=== PATIENT | male | born 1945 | race Caucasian/White ===

== ENCOUNTER 2019-04-30 15:23 | Inpatient (IN) | payer MEDICARE, MEDICAID ==
[~2019-04-30] VITALS: Ht 170.2 cm; Wt 51.7 kg
[2019-04-30 15:30] VITALS: BP 104/66
--- NOTE | 2019-04-30 15:30 | NUR ---
ED Nurse Note: Patient LANE from [facility] due to being more agitated than usual since yesterday. Pt's baseline is AAO x2. Pt is A&O x1 (person) in the ER, V/S noted. Pt is irritable, repeats words and is combative. Pt is connected to the cardiac monitor technician, blood and urine sent down to the lab.
--- NOTE | 2019-04-30 16:00 | Emergency Room Report ---
History of Present Illness General Chief Complaint: Altered Level of Consciousness Source: Patient, Medical Record, EMS Present Illness HPI Disclaimer: Please note that this report is being documented using DRAGON technology. This can lead to erroneous entry secondary to incorrect interpretation by the dictating instrument. HPI: 73-year-old male with a documented history of paranoid schizophrenia, dementia, prostate issues, respiratory disease presents for evaluation of altered mental status. He presents from his nursing facility for increased aggression, agitation and disorientation. Reportedly, he is AO x2 at baseline however today is only oriented to self. He was combative with staff. He arrives shivering. Difficult to obtain any history from the patient and his he is disoriented. Does not know where he is currently or how he arrived. He is complaining of feeling cold but denies fevers. He does report a cough. He reports diffuse myalgias. Denies any recent fall or injury. None was reported by EMS. No prior visits to our facility. PMH: Schizophrenia, dementia, respiratory disease, COPD, prostate issues PSH: Unable to obtain from patient Allergies: Azithromycin listed in medical chart Social Hx: Unable to obtain from patient Allergies: Coded Allergies: AZITHROMYCIN (Verified Allergy, Unknown, 04/30/19) Nursing Documentation-PMH Past Medical History: No History, Except For Hx Hypertension: Yes Hx COPD: Yes Hx Diabetes: Yes Review of Systems All Other Systems: limited - Due to clinical condition Physical Exam Vital Signs Date Time Temp Pulse Resp B/P (MAP) Pulse Ox O2 Delivery O2 Flow Rate FiO2 04/30/19 15:30 97.3 105 20 104/66 (79) 99 Room Air General: Awake and alert, tremulous, confused and anxious appearing male HEENT: NC/AT. EOMI. PERRLA. Edentulous. Dry mucous membranes. Cardiovascular: Slightly tachycardic. S1 and S2 normal. No murmur appreciated Resp: Normal work of breathing. No cough, wheezing or crackles appreciated Abdomen: Abdomen is soft, nondistended. Nontender Skin: Intact. No abrasions, laceration or rash over the exposed skin MSK: Decreased muscle bulk diffusely but moving all extremities. No obvious deformity. Neuro: Awake, disoriented. Oriented to self only. Moving all extremities. Compliant with simple commands Procedures Critical Care Time Critical Care Time Total critical care time: Approximately 31 minutes Due to a high probability of clinically significant, life threatening deterioration, the patient required the highest level of preparedness to intervene emergently and I personally spent this critical care time directly and personally managing the patient. This critical care time included obtaining a history, examining the patient, pulse oximetry, ordering and reviewing studies , ordering treatments, evaluating response to treatment and updating management plan as needed, frequent reassessment and discussion with other providers as well as arranging for ultimate disposition. This critical to care time was performed to assess and manage the high probability of life-threatening deterioration that could result in multiorgan failure. This critical care time is separate from the separately billable procedures and treating other patients. Medical Decision Making Diagnostic Impression: Primary Impression: Altered level of consciousness Additional Impressions: Anemia Diarrhea Thrombocytosis ER Course 73-year-old male presents from his assisted living facility for evaluation of changes in mental status. He is reportedly more confused and aggressive as compared to his baseline. Differential is broad and includes but not limited to viral syndrome, dehydration, hepatic impairment, renal impairment, UTI, pneumonia, ACS, tox. Start broad metabolic and toxicologic work-up. Will provide IV fluids. Laboratory Tests Test 04/30/19 16:08 White Blood Count 9.9 K/UL (4.8-10.8) Red Blood Count 3.07 M/UL (4.70-6.10) L Hemoglobin 7.5 G/DL (14.2-18.0) L Hematocrit 25.8 % (42.0-52.0) L Mean Corpuscular Volume 84 FL (80-99) Mean Corpuscular Hemoglobin 24.5 PG (27.0-31.0) L Mean Corpuscular Hemoglobin Concent 29.2 G/DL (32.0-36.0) L Red Cell Distribution Width 16.6 % (11.6-14.8) H Platelet Count 609 K/UL (150-450) H Mean Platelet Volume 6.9 FL (6.5-10.1) Neutrophils (%) (Auto) % (45.0-75.0) Lymphocytes (%) (Auto) % (20.0-45.0) Monocytes (%) (Auto) % (1.0-10.0) Eosinophils (%) (Auto) % (0.0-3.0) Basophils (%) (Auto) % (0.0-2.0) Neutrophils % (Manual) Pending Lymphocytes % (Manual) Pending Platelet Estimate Pending Platelet Morphology Pending Urine Color Yellow Urine Appearance Clear Urine pH 5.0 (4.5-8.0) Urine Specific [place] 1.010 (1.005-1.035) Urine Protein 2+ (NEGATIVE) H Urine Glucose (UA) Negative (NEGATIVE) Urine Ketones Negative (NEGATIVE) Urine Blood Negative (NEGATIVE) Urine Nitrite Negative (NEGATIVE) Urine Bilirubin Negative (NEGATIVE) Urine Urobilinogen Normal MG/DL (0.0-1.0) Urine Leukocyte Esterase Negative (NEGATIVE) Urine RBC 0-2 /HPF (0 - 0) H Urine WBC 0-2 /HPF (0 - 0) Urine Squamous Epithelial Cells None /LPF (NONE/OCC) Urine Bacteria Occasional /HPF (NONE) Sodium Level 139 MMOL/L (136-145) Potassium Level 3.3 MMOL/L (3.5-5.1) L Chloride Level 101 MMOL/L (98-107) Carbon Dioxide Level 26 MMOL/L (21-32) Anion Gap 12 mmol/L (5-15) Blood Urea Nitrogen 7 mg/dL (7-18) Creatinine 0.9 MG/DL (0.55-1.30) Estimate Glomerular Filtration Rate > 60 mL/min (>60) Glucose Level 142 MG/DL (74-106) H Calcium Level 8.9 MG/DL (8.5-10.1) Total Bilirubin 0.2 MG/DL (0.2-1.0) Aspartate Amino Transferase (AST) 22 U/L (15-37) Alanine Aminotransferase (ALT) 25 U/L (12-78) Alkaline Phosphatase 90 U/L (46-116) Total Creatine Kinase 86 U/L (26-140) Troponin I 0.000 ng/mL (0.000-0.056) Total Protein 8.6 G/DL (6.4-8.2) H Albumin 4.2 G/DL (3.4-5.0) Globulin 4.4 g/dL Albumin/Globulin Ratio 1.0 (1.0-2.7) Salicylates Level 1.2 ug/mL (2.8-20) L Urine Opiates Screen Negative (NEGATIVE) Acetaminophen Level < 2 MCG/ML (10-30) L Urine Barbiturates Screen Negative (NEGATIVE) Phencyclidine (PCP) Screen Negative (NEGATIVE) Urine Amphetamines Screen Negative (NEGATIVE) Urine Benzodiazepines Screen Negative (NEGATIVE) Urine Cocaine Screen Negative (NEGATIVE) Urine Marijuana (THC) Screen Negative (NEGATIVE) Serum Alcohol < 3 mg/dL Microbiology Date/Time Source Procedure Growth Status 04/30/19 16:40 Nasal Nares - Final Complete 04/30/19 16:40 Nasal Nares - Final Complete EKG Diagnostic Results EKG Time: 16:17 Rate: tachycardiac Rhythm: NSR ST Segments: no acute changes Other Impression Sinus tachycardia, normal axis, normal intervals, no ST segment changes. Rhythm Strip Diag. Results Rhythm Strip Time: 16:17 EP Interpretation: yes Rate: 107 Rhythm: no PVC's, no ectopy Chest X-Ray Diagnostic Results Chest X-Ray Diagnostic Results : Chest X-Ray Ordered: Yes # of Views/Limited/Complete: 1 View Indication: Other - Altered mental status EP Interpretation: Yes Interpretation: other - Left hilar prominence. Streaky atelectasis. No obvious focal consolidation Impression: No acute disease Electronically Signed by: Electronically signed by Dr. Gab William Reevaluation Time: 17:32 Last Vital Signs Date Time Temp Pulse Resp B/P (MAP) Pulse Ox O2 Delivery O2 Flow Rate FiO2 04/30/19 15:30 97.3 105 20 104/66 (79) 99 Room Air Reevaluation Impression Patient needed a small dose of Ativan while obtaining blood work but otherwise has been calm and cooperative. No aggressive behavior displayed today in the emergency department. Patient found to be anemic with a hemoglobin of 7.5. No evidence of bleed. His paperwork shows blood work on April 18 with a hemoglobin of 8.1. I discussed with his PMD who is also stating that he has having voluminous foul-smelling diarrhea. Will put on C. difficile precautions , send stool culture and C. difficile toxin and transfuse the patient 2 units. He will be admitted for further work-up to his PMD Disposition: ELOPED Condition: Serious Gab William MD Apr 30, 2019 16:00
[2019-04-30] MEDS ORDERED: LORazepam Inj 2mg/ml 1ml ONE (16:19)
[2019-04-30] MEDS ORDERED: LORazepam Inj 2mg/ml 1ml IV ONE ×2 (16:30→20:45)
--- NOTE | 2019-04-30 16:35 | NUR ---
ED Nurse Note: Influenza A&B swab done.
[2019-04-30 16:41] LABS: CHLORIDE 101 MMOL/L (98-107); POTASSIUM 3.3 MMOL/L (3.5-5.1); SODIUM 139 MMOL/L (136-145)
[2019-04-30 16:47] LABS: ANION GAP 12 mmol/L (5-15); BLOOD UREA NITROGEN 7 mg/dL (7-18); CALCIUM 8.9 MG/DL (8.5-10.1); CARBON DIOXIDE 26 MMOL/L (21-32); CREATININE 0.9 MG/DL (0.55-1.30)
[2019-04-30 16:53] LABS: BILIRUBIN,TOTAL 0.2 MG/DL (0.2-1.0)
[2019-04-30 16:54] LABS: ALANINE AMINOTRANSFERASE 25 U/L (12-78); ALBUMIN 4.2 G/DL (3.4-5.0); ALKALINE PHOSPHATASE 90 U/L (46-116); CREATINE KINASE 86 U/L (26-140)
[2019-04-30 16:56] LABS: HEMATOCRIT 25.8 % (42.0-52.0); HEMOGLOBIN 7.5 G/DL (14.2-18.0); MEAN CORPUSCULAR VOLUME 84 FL (80-99); PLATELET COUNT 609 K/UL (150-450); RED BLOOD COUNT 3.07 M/UL (4.70-6.10); RED CELL DISTRIBUTION WIDTH 16.6 % (11.6-14.8); WHITE BLOOD COUNT 9.9 K/UL (4.8-10.8)
[2019-04-30 17:11] LABS: APPEARANCE,URINE CLEAR; COLOR,URINE YELLOW
[2019-04-30 17:12] LABS: ASPARTATE AMINO TRANSFERASE 22 U/L (15-37); BILIRUBIN, URINE NEGATIVE (NEGATIVE); GLUCOSE, URINE (UA) NEGATIVE (NEGATIVE); KETONES,URINE NEGATIVE (NEGATIVE); LEUKOCYTE ESTERASE ,URINE NEGATIVE (NEGATIVE); NITRITE,URINE NEGATIVE (NEGATIVE); PROTEIN,URINE 2+ (NEGATIVE); UROBILINOGEN,URINE NORMAL MG/DL (0.0-1.0)
[2019-04-30 17:30] VITALS: BP 115/70
--- NOTE | 2019-04-30 18:16 | Diagnostic Imaging Report ---
EXAM: XR Chest, 1 View CLINICAL HISTORY: COUGH TECHNIQUE: Frontal view of the chest. COMPARISON: None FINDINGS: Hardware: None. Lungs/pleura: Interstitial markings. No focal consolidation. No pleural effusion or pneumothorax. Heart/mediastinum: Normal. No cardiomegaly. Soft tissues: Unremarkable. Bones: No acute fracture. Degenerative changes of the spine. Upper abdomen: Gas-filled bowel. IMPRESSION: No focal consolidation identified. Interstitial markings may represent chronic lung changes versus infectious/inflammatory process.
--- NOTE | 2019-04-30 18:18 | NUR ---
ED Nurse Note: Patient was given a bed bath, unable to obtain stool sample, no stool production at this time. Pt is cooperative, follows command. V/S stable.
--- NOTE | 2019-04-30 18:20 | NUR ---
ED Nurse Note: Type and Screen blood sent down to the lab.
--- NOTE | 2019-04-30 19:22 | NUR ---
HAND-OFF: Report given to YAMEL Daly.
[2019-04-30 19:30] VITALS: BP 117/65
--- NOTE | 2019-04-30 19:30 | NUR ---
ED Nurse Note: Report received from YAMEL Arriaza. Pt is awake and alert at this time. Safety measures in place. No acute distress noted. VSS. Will continue to monitor.
--- NOTE | 2019-04-30 20:30 | NUR ---
ED Nurse Note: While taking pt pre blood transfusion VS, pt temperature was elevated at 101.2F. ERMD notified, will carry out order for tylenol. ERMD also notified of pt elevated HR in 120's.
[2019-04-30] MEDS ORDERED: Acetaminophen 650 MG SUPP RECTAL ONE (20:45)
[2019-04-30 21:00] VITALS: BP 94/54
[2019-04-30] MEDS ORDERED: Doxycycline Hyclate 100 MG in D5W 110 ML IVPB SCH (21:30)
[2019-04-30] MEDS ORDERED: cefTRIAXone 1 GM in NS 55 ML IVPB ONE (21:30)
--- NOTE | 2019-04-30 22:50 | NUR ---
ED Nurse Note: Upon assessment of pre blood transfusion vital signs, pt BP low at 80/47. ERMD aware, pt started on 1L ns bolus.
[2019-04-30 23:35] VITALS: BP 95/48
[2019-04-30 23:43] VITALS: BP 129/92
--- NOTE | 2019-04-30 23:45 | NUR ---
ED Nurse Note: Pt BP has gone up to 129/92 after NS bolus. Pt is in no acute distress at this time.
--- NOTE | 2019-04-30 23:57 | NUR ---
ED Nurse Note: Report given to YAEML He.
--- NOTE | 2019-05-01 | NUR ---
ED Nurse Note: Report given to YAMEL He.
[2019-05-01] MEDS ORDERED: IMODIUM A-1 MG/7.5 M PO (00:13)
[2019-05-01] MEDS ORDERED: ALBUTEROL2.5 MG/3 M INH (00:13)
[2019-05-01] MEDS ORDERED: SEROQUEL25 MG ORAL (00:13)
[2019-05-01] MEDS ORDERED: TYLENOL325 M1 PO (00:13)
[2019-05-01] MEDS ORDERED: SALAGEN7.5 MG PO (00:13)
[2019-05-01] MEDS ORDERED: MELATONIN3 MG ORAL (00:13)
[2019-05-01] MEDS ORDERED: FAMOTIDINE20 MG ORAL ×2 (00:13→01:09)
[2019-05-01] MEDS ORDERED: DIPHENHYDRAMINE25 M1 ORAL (00:13)
[2019-05-01] MEDS ORDERED: BISACODYL5 MG RECTAL (00:13)
[2019-05-01] MEDS ORDERED: FLOMAX0.4 MG ORAL (00:13)
[2019-05-01] MEDS ORDERED: SEROQUEL100 MG ORAL (00:13)
[2019-05-01] MEDS ORDERED: FLONASE ALLERG9.9 ML NS (00:13)
[2019-05-01] MEDS ORDERED: MIDODRINE HCL5 MG ORAL (00:13)
--- NOTE | 2019-05-01 00:15 | NUR ---
NURSE NOTES: received patient per yumiko accompanied by er staff with ongoing 2nd bag of prbc infusing well on the right ac. with another iv line on the left forearm, saline lock. patient is confused. incontinent. no open skin noted aside from the rashes all over the body.on room air. all belongings was at the bedside.per ed nurse that they collected stool for c diff. with 2 episodes of loose bowel movement. charge nurse made aware. kept clean and dry.oriented to room set- up. bed locked and in lowest position. call light and light button within easy reach.vital signs of 95/56mmhg, 98bpm, 97.8F, 94%. not in any form of respiratory distress. paged dr. mccann for admission orders, awaiting for call back.
--- NOTE | 2019-05-01 00:15 | NUR ---
ED Nurse Note: Pt stable to transfer to MS unit at this time per ERMD. Pt is in no acute distress. Pt IV on R and L arm are patent and intact. Vital signs are stable at this time. Pt taken to unit via RN. PRBCs are infusing at this time, endorsed plan to receiving RN. Pt belongings sent with pt.
--- NOTE | 2019-05-01 00:40 | NUR ---
blood transfusion completed. with vital signs of 87/54mmhg, 95 bpm, 97.9F, 95%, 20 cpm. patient is sleeping comfortably on bed. not in any form of respiratory distress. blood bag and tubing returned to the lab. paged for orders, awaiting for call back. charge nurse made aware. Addendum: 05/01/19 at 0403 by Jyotsna Giron RN NURSE NOTES:
[2019-05-01] MEDS ORDERED: BISACODYL5 MG ORAL (01:09)
[2019-05-01] MEDS ORDERED: LOPERAMIDE2 MG PO (01:09)
[2019-05-01] MEDS ORDERED: ACETAMINOPHEN120 MG PO (01:09)
[2019-05-01] MEDS ORDERED: PILOCARPINE HCL MC (01:09)
--- NOTE | 2019-05-01 03:00 | NUR ---
NURSE NOTES: Rox mccann, went through voicemail. awaiting for call back. charge nurse made aware.
[2019-05-01 04:00] VITALS: BP 98/52
--- NOTE | 2019-05-01 06:00 | NUR ---
NURSE NOTES: called dr. mccann phone went through [employer], left a message awaiting for call back. charge nurse made aware.
[2019-05-01] MEDS ORDERED: Albuterol ud Inhalation HHN PRN (07:30)
--- NOTE | 2019-05-01 07:30 | NUR ---
NURSE NOTES: RECEIVED PATIENT A/A/OX1, CONFUSED. ATTEMPTED TO GET OUT BED. PATIENT ABLE TO FOLLOW COMMANDS. COVERED WITH FECES, DIARRHEA LIKE. BED ALARM ENGAGED AND LOCKED. SIDERAILS ARE UPX3. CALL LIGHT IS WITHIN REACH. IV SITE IS PATENT AND INTACT. DENIES OF PAIN/DISCOMFORT NOTED. WILL CONT TO MONITOR.
--- NOTE | 2019-05-01 07:40 | NUR ---
NURSE NOTES: md aware regarding the potassium of 3.3, with a new order of kcl 40 meq x1. endorsed to incoming shift.
--- NOTE | 2019-05-01 07:43 | NUR ---
HAND-OFF: Report given to renny walker. endorsed that the pt is high risk for fall due to diagnosis of paranois schizophenia and altered mental status. he's confused. he gets on bed and frequently screams for help. advised to observe fall precautions by lowering down the bed, bed locked, call light within easy reach but unable to re-demonstrate and frewuent visits. pt is placed near the nurses station for safety. endorsed to aaron regarding the new orders.
[2019-05-01 08:00] VITALS: BP 101/56
[2019-05-01] MEDS ORDERED: LORazepam 1mg tab ORAL PRN (08:00)
[2019-05-01] MEDS: Bisacodyl EC 5mg tab ORAL SCH (09:00)
[2019-05-01] MEDS ORDERED: Vancomycin 1gm/D5W 275ml IVPB ONE ×2 (09:00)
[2019-05-01] MEDS: Tamsulosin 0.4mg cap ORAL SCH (09:24)
[2019-05-01 09:51] LABS: BASOPHILS % (AUTO) 1.4 % (0.0-2.0); EOSINOPHILS % (AUTO) 1.2 % (0.0-3.0); HEMATOCRIT 31.9 % (42.0-52.0); HEMOGLOBIN 10.3 G/DL (14.2-18.0); LYMPHOCYTES % (AUTO) 18.5 % (20.0-45.0); MEAN CORPUSCULAR VOLUME 81 FL (80-99); MONOCYTES % (AUTO) 8.2 % (1.0-10.0); NEUTROPHILS % (AUTO) 70.6 % (45.0-75.0); PLATELET COUNT 623 K/UL (150-450); RED BLOOD COUNT 3.92 M/UL (4.70-6.10); WHITE BLOOD COUNT 7.3 K/UL (4.8-10.8)
[2019-05-01 10:45] LABS: ANION GAP 9 mmol/L (5-15); BLOOD UREA NITROGEN 20 mg/dL (7-18); CALCIUM 8.2 MG/DL (8.5-10.1); CARBON DIOXIDE 24 MMOL/L (21-32); CHLORIDE 109 MMOL/L (98-107); CREATININE 0.9 MG/DL (0.55-1.30); POTASSIUM 4.4 MMOL/L (3.5-5.1); SODIUM 142 MMOL/L (136-145)
--- NOTE | 2019-05-01 11:00 | NUR ---
NURSE NOTES: Inform Dr. Garcia about generalized rash with no new order. Dr. Garcia said to follow protocol. Will inform wound care nurse.
--- NOTE | 2019-05-01 11:53 | NUR ---
NURSE NOTES: ADMINISTERED IMODIUM FOR DIARRHEAL EVENT. PATIENT IS NOT ABLE TO FOLLOW COMMANDS. CONSTANTLY GETTING UP OFF THE BED. BED ALARM ENGAGED. AND BED LOCK @ ALL TIMES. WILL CONT TO MONITOR.
[2019-05-01 12:00] VITALS: BP 113/63
[2019-05-01] MEDS: Piperacillin/Tazobactam 3.375 GM in NS 110 ML IVPB SCH ×2 (13:08→21:14)
[2019-05-01] MEDS ORDERED: NS 275ml ONE (13:47)
[2019-05-01] MEDS ORDERED: Tubing IV Secondary IV ONE (13:47)
[2019-05-01] MEDS: LORazepam Inj 2mg/ml 1ml IV PRN ×2 (13:57→21:14)
[2019-05-01 15:54] VITALS: BP 90/53
[2019-05-01 16:30] VITALS: BP 97/58
--- NOTE | 2019-05-01 18:53 | NUR ---
HAND-OFF: Report given to YAMEL Pierre.
--- NOTE | 2019-05-01 19:01 | NUR ---
NURSE NOTES: Received patient on bed, sleeping comfortably in bed with ongoing ivf of ns @100 ml/hr. with iv line on RAC and lfa. no noted grimacing or moaning noted. bed locked and in lowest position. bed alarm on. call light and light button within easy reach. will ensure safety and will continue plan of care.
[2019-05-01 20:00] VITALS: BP 102/60
[2019-05-01] MEDS: Vancomycin 750mg/NS 275ml IVPB SCH ×2 (20:13)
[2019-05-02] VITALS: BP 93/53
[2019-05-02] MEDS: LORazepam Inj 2mg/ml 1ml IV PRN ×4 (02:39→23:17)
[2019-05-02 04:00] VITALS: BP 99/60
[2019-05-02] MEDS: Piperacillin/Tazobactam 3.375 GM in NS 110 ML IVPB SCH ×3 (06:49→22:00)
--- NOTE | 2019-05-02 07:30 | NUR ---
HAND-OFF: Report given to YAMEL WOODARD. ENDORSED that the pt is high risk for fall. he tries to get up on bed. advised to observe fall precautions.
--- NOTE | 2019-05-02 07:54 | NUR ---
NURSE NOTES: Received patient in bed. IV line intact and patent. No SOB or acute distress. HOB elevated. Bed locked in lowest position, alarm on high sensitivity setting. Side rails up. Call light within reach. Will continue frequent rounding and plan of care.
[2019-05-02 08:00] VITALS: BP 151/98
--- NOTE | 2019-05-02 08:22 | General Progress Note ---
Assessment/Plan Assessment/Plan: anemia possible sepsis hypotension diarrhea tox met encephalopathy psych history PLAN psych eval gi follow up monitor diarrhea Cdfi negative care reviewed stabilize and dc to snf impression, plan, and exam edited and reviewed in detail care discussed with RN Subjective Allergies: Coded Allergies: AZITHROMYCIN (Verified Allergy, Unknown, 04/30/19) Subjective care noted gi noted and discussed remains altered Objective Last 24 Hour Vital Signs Date Time Temp Pulse Resp B/P (MAP) Pulse Ox O2 Delivery O2 Flow Rate FiO2 05/02/19 04:00 97.7 91 18 99/60 (73) 94 05/02/19 00:00 97.9 81 18 93/53 (66) 95 05/01/19 21:00 Room Air 05/01/19 20:00 97.9 99 18 102/60 (74) 96 05/01/19 16:30 97/58 (71) 05/01/19 15:54 98.1 89 18 90/53 (65) 93 05/01/19 12:00 98.1 86 20 113/63 (80) 97 05/01/19 09:00 Room Air Intake and Output 05/01/19 05/02/19 19:00 07:00 Intake Total 862.5 ml 576.663 ml Balance 862.5 ml 576.663 ml Intake Oral 480 ml IV Total 382.5 ml 576.663 ml # Voids 3 3 # Bowel Movements 6 4 Laboratory Tests 05/01/19 09:35: White Blood Count 7.3, Red Blood Count 3.92L, Hemoglobin 10.3#L, Hematocrit 31.9L, Mean Corpuscular Volume 81, Mean Corpuscular Hemoglobin 26.4L, Mean Corpuscular Hemoglobin Concent 32.4, Red Cell Distribution Width 15.0H, Platelet Count 623H, Mean Platelet Volume 5.9L, Neutrophils (%) (Auto) 70.6, Lymphocytes (%) (Auto) 18.5L, Monocytes (%) (Auto) 8.2, Eosinophils (%) (Auto) 1.2, Basophils (%) (Auto) 1.4, Sodium Level 142, Potassium Level 4.4, Chloride Level 109H, Carbon Dioxide Level 24, Anion Gap 9, Blood Urea Nitrogen 20H, Creatinine 0.9, Estimat Glomerular Filtration Rate > 60, Glucose Level 101, Calcium Level 8.2L Height (Feet): 5 Height (Inches): 9.00 Weight (Pounds): 116 Objective WDWN NAD clear breath sounds bilaterally without rhonchi or wheeze [id number] without MRG NABS nontender no HSM no CCE nonfocal reduced LOC Galen Garcia MD May 02, 2019 08:22
--- NOTE | 2019-05-02 10:00 | NUR ---
NURSE NOTES: IV line out. Reinserted to left hand using g24, infusing well. Bilateral soft wrist restraints ordered and placed. Pulses palpable, skin warm to touch.
[2019-05-02] MEDS: Tamsulosin 0.4mg cap ORAL SCH (10:13)
[2019-05-02] MEDS: Bisacodyl EC 5mg tab ORAL SCH (10:13)
--- NOTE | 2019-05-02 11:00 | NUR ---
NURSE NOTES: Seen by wound nurse, with orders for wound consult with Dr Horn and to notify Dr Garcia of generalized rashes. Wound nurse instructed RN to monitor rashes, if scales start to develop and if rashes multiply and appear in more areas, to notify wound nurse of occurrence. Dr Garcia to let wound nurse assess rashes.
[2019-05-02] MEDS: Vancomycin 750mg/NS 275ml IVPB SCH ×4 (11:02→21:47)
--- NOTE | 2019-05-02 11:07 | NUR ---
RD ASSESSMENT & RECOMMENDATIONS SEE CARE ACTIVITY FOR COMPLETE ASSESSMENT DAILY ESTIMATED NEEDS: Needs based on Underweight, wounds 52.7kg 30-35 kcals/kg 9645-6327 total kcals 1.25-1.5 g protein/kg 66-79 g total protein 25-30 mL/kg 6596-6773 total fluid mLs NUTRITION DIAGNOSIS: Increased kcal and pro needs r/t wound healing and underweight status as evidenced by pt w/ multiple open wounds, BMI underweight per guidelines, @73% of [place] Body Weight w/ generalized moderate to severe wasting. CURRENT DIET: Soft puree/ NTL PO DIET RECOMMENDATIONS: Regular diet/ texture per DISCOUNT CLERK ADDITIONAL RECOMMENDATIONS: 1) Rec to obtain a Calibrated bed scale wt 2) Wound care: (f/up w/ WC eval) RENETTA BID + VIT C 250mg BID + MVI w/ min qd 3) Add Snacks in b/w meals + Ensure BID 4) DISCOUNT CLERK eval for appropriate texture
[2019-05-02 12:00] VITALS: BP 108/68
--- NOTE | 2019-05-02 12:01 | NUR ---
Social Work This SW received a consult to assist with locating family. Patient is confused and cannot provide the information. This Sw spoke with RNOdalis at [facility] ([phone]) who explains patient was recently admitted to the correction last , from [facility], [facility] and has the following contacts for decision makin) Candie Ibrahim ([phone]) and 2) Igor Palacio ([phone]). SNF, along with this SW have made several attempts to locate family, where is not a voicemail or return call from this number. Odalis explains she will contact here, if family comes to visit patient (or tries to contact the correction). MD to consent to any treatment (full treatment at this time). Bioethics to follow, as needed.
--- NOTE | 2019-05-02 12:15 | History and Physical Report ---
DATE OF ADMISSION: 05/01/2019 REASON FOR ADMISSION: Severe anemia, fever. HISTORY OF PRESENT ILLNESS: This is a 81-year-old male with history of paranoid schizophrenia, dementia who was noted to be extremely agitated with foul-smelling diarrhea. The patient was noted to have some disorientation and abnormal laboratory data. The patient was transferred over for further evaluation and further intervention. The patient is a difficult historian. The patient now admitted for care and management. The patient is status post transfusion, but to some extent refusing care. Toxicology screen was noted and reviewed. PAST MEDICAL HISTORY: Notable for schizophrenia, dementia, COPD, as mentioned history of possible psychosis, benign prostatic hyperplasia. MEDICATIONS: Reviewed. ALLERGIES: Reviewed and reconciled. SOCIAL HISTORY: Lives in a snf. No clear smoking or drinking history. REVIEW OF SYSTEMS: Difficult to obtain due to the patient's mental state. PHYSICAL EXAMINATION: GENERAL: The patient is a well-developed male, somewhat agitated. VITAL SIGNS: Blood pressure 101/56, pulse 81, respirations 20, saturation 93%, temperature 98.4. HEENT: Negative. NECK: Supple. No adenopathy. LUNGS: Fairly clear and symmetric. No rhonchi or wheezes. CARDIAC: S1 and S2. Regular rate and rhythm without clear murmurs, rubs, or gallops. ABDOMEN: Overall soft, nontender, nondistended. EXTREMITIES: No cyanosis or clubbing. NEUROLOGIC: Appears to be grossly nonfocal. LABORATORY DATA: Chest x-ray with likely some chronic changes. Hemoglobin now improved from 7.5 to 10.3, platelets are elevated at 623. Chemistries noted, fairly negative overall. The albumin is 4.2. Urinalysis is overall negative. IMPRESSION: 1. Fever of unclear significance. 2. Mild hypertension, overall improved. 3. Anemia. Consider GI bleed. 4. Toxic metabolic encephalopathy. 5. History of schizophrenia. RECOMMENDATIONS: Supportive care. Resume psychiatric medications. Consider psychiatric evaluation. The patient was started empirically on antibiotics. Transfuse as needed. IV hydration if needed. GI evaluation to assist further and monitor ongoing management and recommendations. Stabilize and transfer the patient to the snf once improved. Galen Ishaaya, M.D. DR: QUINCY JOB#: [id number] CC: VIANNEY
--- NOTE | 2019-05-02 12:15 | Consultation ---
DATE OF CONSULTATION: 05/01/2019 CHIEF COMPLAINT: I was asked to see this patient by Dr. Galen Garcia for evaluation of anemia. HISTORY OF PRESENT ILLNESS: The patient is a 73-year-old white man with dementia and schizophrenia, who comes into the hospital due to altered mental status. The patient is confused and unable to provide any history, although he is awake and follows some basic commands. He is having increased psychiatric presentation with agitation and disorientation. During admission, he was combative. Blood test drawn showed also anemia. It is unclear if he has had anemia before. I was trying to call the patient's family but I am unable to go through with the number provided. PAST MEDICAL HISTORY: History of schizophrenia, dementia, respiratory disease, COPD, cognitive issues. ALLERGIES: Zithromax. FAMILY HISTORY: Unavailable. SOCIAL HISTORY: Unavailable. REVIEW OF SYSTEMS: Unobtainable. PHYSICAL EXAMINATION: VITAL SIGNS: Confused, debilitated white man, who is in bed. HEENT: Normocephalic, atraumatic. Sclerae anicteric. Oropharynx clear. Dentition was poor. NECK: Supple. CHEST: Clear to auscultation. CARDIOVASCULAR: Regular rate. ABDOMEN: Soft. EXTREMITIES: No edema. There were some decubitus ulcerations. LABORATORY DATA: Noted. ASSESSMENT: This patient presents with anemia of unclear etiology. His stools can be checked for occult blood to rule out gastrointestinal blood loss. The patient could potentially undergo endoscopy and colonoscopy to evaluate the GI tract. However, I will have to talk to the family regarding the indications and alternatives and difficulties performing the colonoscopy. I will ask the social media manager to locate the family to discuss the matter. In the meantime, I will monitor the patient's CBC, check iron panel and replace as necessary. RECOMMENDATIONS: Per above discussion and per orders written in the chart. Thank you for asking me to participate in the care of this patient. Claire Boles M.D. DR: Jada JOB#: [id number] CC: VIANNEY
--- NOTE | 2019-05-02 13:13 | NUR ---
P.T Note: P.T evaluation completed and tx initiated. Please refer to P.T evaluation for current functional status. Pt is alert, oriented to self but not to time, place and situation. Pt is confused however follows simple commands. Pt denied c/o pain but is generally weak. Pt required MOD A X 1 and constant verbal and manual redirections in performing Bed Mobilities and transfer activities. Gait is very unsteady and needed MOD A X 1 and FWW to ambulate distance of 20 ft. Overall fair endurance. Skilled P.T service is warranted to improve strength, balance and mobility independence and safe. Recommend DC to SNF with continue P.T intervention. Pt is cleared for OOB activities with FWW and nursing assistance.
--- NOTE | 2019-05-02 14:10 | Consultation ---
History of Present Illness General Date patient seen: May 02, 2019 Chief Complaint: Altered Level of Consciousness Present Illness HPI 73-year-old male with a documented history of paranoid schizophrenia, dementia, prostate issues, respiratory disease presents for evaluation of altered mental status. He presents from his nursing facility for increased aggression, agitation and disorientation. Reportedly, he is AO x2 at baseline however today is only oriented to self. He was combative with staff. He arrives shivering. Difficult to obtain any history from the patient and his he is disoriented. Does not know where he is currently or how he arrived. He is complaining of feeling cold but denies fevers. He does report a cough. He reports diffuse myalgias. Denies any recent fall or injury. None was reported by EMS. No prior visits to our facility. mild abd distention noted PMH: Schizophrenia, dementia, respiratory disease, COPD, prostate issues PSH: Unable to obtain from patient Allergies: Azithromycin listed in medical chart Social Hx: Unable to obtain from patient Allergies: Coded Allergies: AZITHROMYCIN (Verified Allergy, Unknown, 04/30/19) Medication History Scheduled Bisacodyl* (Dulcolax*), 10 MG ORAL DAILY, (Reported) Famotidine* (Pepcid 20mg tablet*), 40 MG ORAL DAILY, (Reported) Loperamide Hcl (Loperamide), 2 MG PO EVERY 4 HOURS, (Reported) Midodrine* (Proamatine*), 5 MG ORAL TWICE A DAY, (Reported) Pilocarpine Hcl (Pilocarpine Hcl), 5 GM MC TID, (Reported) Quetiapine Fumarate* (Seroquel*), 100 MG ORAL BEDTIME, (Reported) Quetiapine Fumarate* (Seroquel*), 50 MG ORAL TWICE A DAY, (Reported) Tamsulosin HCl (Flomax), 0.4 MG ORAL DAILY, (Reported) Scheduled PRN Acetaminophen* (Tylenol*), 650 MG PO Q6HR PRN for Mild Pain/Temp > 100.5, ( Reported) Albuterol Sulfate* (Albuterol Sulfate Hhn*), 2.5 ML INH Q4H PRN for Shortness of Breath, (Reported) Diphenhydramine Hcl* (Diphenhydramine Hcl*), 25 MG ORAL Q4HR PRN for Itching, ( Reported) Melatonin (Melatonin), 3 MG ORAL BEDTIME PRN for Insomnia, (Reported) Discontinued Medications Acetaminophen (Tylenol), 325 MG PO NEEDED, (Reported) Discontinued Reason: Medication dose changed Bisacodyl* (Dulcolax*), 10 MG RECTAL DAILY, (Reported) Discontinued Reason: MD discontinued med Famotidine* (Pepcid 20mg tablet*), 40 MG ORAL DAILY, (Reported) Discontinued Reason: Medication dose changed Fluticasone Propionate (Flonase Allergy Relief), 50 MCG NS ONCE, (Reported) Discontinued Reason: Therapy completed Loperamide Hcl (Imodium A-D), 2 MG PO EVERY 4 HOURS, (Reported) Discontinued Reason: Medication dose changed Pilocarpine Hcl (Salagen), 5 MG PO EVERY 8 HOURS, (Reported) Discontinued Reason: Medication dose changed Patient History Limited by: medical condition History Provided By: Medical Record, PMD Healthcare decision maker Resuscitation status Advanced Directive on File Past Medical/Surgical History Past Medical/Surgical History: (1) Abscess of left shoulder (2) Decubitus skin ulcer (3) Thrombocytosis (4) Diarrhea (5) Anemia (6) Altered level of consciousness Review of Systems ROS Narrative cannot obtain given patients medical condition Physical Exam General Appearance: no apparent distress, alert Lines, tubes and drains: peripheral HEENT: normocephalic, mucous membranes moist Neck: supple, normal inspection Respiratory/Chest: lungs clear, normal breath sounds, no respiratory distress, no accessory muscle use Cardiovascular/Chest: normal rate, regular rhythm Abdomen: soft, no organomegaly, no mass, distended - gaseous Extremities: normal range of motion, non-tender, normal inspection Skin Exam: warm/dry Neurologic: alert Last 24 Hour Vital Signs Date Time Temp Pulse Resp B/P (MAP) Pulse Ox O2 Delivery O2 Flow Rate FiO2 05/02/19 08:00 97.7 109 17 151/98 (115) 97 05/02/19 04:00 97.7 91 18 99/60 (73) 94 05/02/19 00:00 97.9 81 18 93/53 (66) 95 05/01/19 21:00 Room Air 05/01/19 20:00 97.9 99 18 102/60 (74) 96 05/01/19 16:30 97/58 (71) 05/01/19 15:54 98.1 89 18 90/53 (65 93 Intake and Output 05/01/19 05/02/19 19:00 07:00 Intake Total 862.5 ml 576.663 ml Balance 862.5 ml 576.663 ml Intake Oral 480 ml IV Total 382.5 ml 576.663 ml # Voids 3 3 # Bowel Movements 6 4 Height (Feet): 5 Height (Inches): 9.00 Weight (Pounds): 116 Medications Current Medications Medications (Trade) Dose Ordered Sig/Rachel Route PRN Reason Start Time Stop Time Status Last Admin Dose Admin Acetaminophen (Tylenol) 650 mg Q4H PRN ORAL Mild Pain/Temp > 100.5 05/01/19 08:00 05/31/19 07:59 Al Hydroxide/Mg Hydroxide (Mylanta) 30 ml Q4H PRN ORAL Abdominal cramps 05/01/19 07:15 05/31/19 07:14 Albuterol Sulfate (Proventil) 2.11645 mg Q4H PRN HHN Shortness of Breath 05/01/19 07:30 05/06/19 07:29 Bisacodyl (Dulcolax) 10 mg DAILY ORAL 05/01/19 09:00 05/31/19 08:59 05/02/19 10:13 Diphenhydramine HCl (Benadryl) 25 mg Q4H PRN ORAL Itching 05/01/19 07:30 05/31/19 07:29 Famotidine (Pepcid) 40 mg DAILY ORAL 05/01/19 09:00 05/31/19 08:59 05/02/19 10:13 Loperamide HCl (Imodium) 2 mg Q4H PRN ORAL Diarrhea 05/01/19 07:30 05/31/19 07:29 05/01/19 11:33 Lorazepam (Ativan 2mg/ml 1ml) 1 mg Q4H PRN IV For Anxiety 05/01/19 11:30 05/08/19 11:29 05/02/19 06:49 Midodrine (Pro-Amatine) 5 mg TWICE A DAY ORAL 05/01/19 09:00 05/31/19 08:59 05/01/19 17:07 Pantoprazole (Protonix) 40 mg DAILY ORAL 05/01/19 09:00 05/31/19 08:59 05/02/19 10:13 Piperacillin Sod/ Tazobactam Sod 3.375 gm/Sodium Chloride 110 ml @ 27.5 mls/hr Q8HR IVPB 05/01/19 12:00 05/08/19 11:59 05/02/19 06:49 Quetiapine Fumarate (SEROqueL) 50 mg DAILY ORAL 05/02/19 14:02 06/01/19 14:01 Risperidone (RisperDAL) 1 mg BID ORAL 05/02/19 14:00 06/01/19 13:59 Sodium Chloride 1,000 ml @ 100 mls/hr Q10H IV 05/01/19 08:00 05/31/19 07:59 05/02/19 00:00 Tamsulosin HCl (Flomax) 0.4 mg DAILY ORAL 05/01/19 09:00 05/31/19 08:59 05/02/19 10:13 Vancomycin HCl (Vanco rx to dose) 1 ea DAILY PRN MISC Per rx protocol 05/01/19 07:15 05/31/19 07:14 Vancomycin HCl 750 mg/Sodium Chloride 275 ml @ 183.333 mls/hr Q12HR IVPB 05/01/19 21:00 05/06/19 20:59 05/02/19 11:02 Assessment/Plan Problem List: (1) Malnutrition Assessment & Plan: DAILY ESTIMATED NEEDS: Needs based on Underweight, wounds 52.7kg 30-35 kcals/kg 1935-3097 total kcals 1.25-1.5 g protein/kg 66-79 g total protein 25-30 mL/kg 9560-7153 total fluid mLs NUTRITION DIAGNOSIS: Increased kcal and pro needs r/t wound healing and underweight status as evidenced by pt w/ multiple open wounds, BMI underweight per guidelines, @73% of [place] Body Weight w/ generalized moderate to severe wasting. CURRENT DIET: Soft puree/ NTL PO DIET RECOMMENDATIONS: Regular diet/ texture per STUDENT NURSE ADDITIONAL RECOMMENDATIONS: 1) Rec to obtain a Calibrated bed scale wt 2) Wound care: (f/up w/ WC eval) RENETTA BID + VIT C 250mg BID + MVI w/ min qd 3) Add Snacks in b/w meals + Ensure BID 4) STUDENT NURSE eval for appropriate texture ICD Codes: E46 - Unspecified protein-calorie malnutrition SNOMED: 19018049 (2) Decubitus skin ulcer ICD Codes: L89.90 - Pressure ulcer of unspecified site, unspecified stage SNOMED: 178048304 (3) Abscess of left shoulder ICD Codes: L02.414 - Cutaneous abscess of left upper limb SNOMED: 71457549 (4) Diarrhea ICD Codes: R19.7 - Diarrhea, unspecified SNOMED: 12474794 (5) Abdominal distension (gaseous) Assessment & Plan: kub ordered ICD Codes: R14.0 - Abdominal distension (gaseous) SNOMED: 912689147 Billy Horn May 02, 2019 14:10
--- NOTE | 2019-05-02 15:49 | NUR ---
BEDSIDE SWALLOW EVALUATION COMPLETED AFTER CHART REVIEW AND INTERVIEW WITH RN VANCE. EVALUATION ORDERED BY DR. TERRAZAS. DYSPHAGIA RISK FACTORS FOR THIS 73 Y.O MALE: TOXIC METABLIC ENCEPHALOPATHY, BEHAVIOR DISTURBANCE/PSYCH MEDS TO MANAGE SCHIZOPHRENIA, DEMENTIA/DECREASED MENTATION, HX OF RECURRING PNEUMONIA, RESPIRATORY DISEASE. POLST NOT COMPLETED..NO DESIGNATION RELATIVE TO NON/ORAL FEEDING MANAGEMENT RESIDENT OF SNF WHERE HE IS ON A MODIFIED TEXTURE DIET(PUREE) WITH THIN LIQUIDS. INITIAL IMPRESSIONS: . EFFICACY OF OROPHARYNGEAL PHASE OF SWALLOW MILDLY IMPAIRED WITH SENSORIMOTOR DEFICITS RESULTING IN RESIDUAL OF SOLIDS ON LINGUAL SURFACE POST SWALLOW (CLEARED WITH LIQUID WASH) INTAKE OF NOON MEAL AT 80% WITH NO OVERT S/S OF ASPIRATION DECREASED MENTATION/BEHAVIORAL DISTURBANCE. HIGH RISK FOR SILENT ASPIRATION RECOMMENDATIONS: 1. CONTINUE CURRENT MODIFIED TEXTURE DIET (PUREE/NECTAR THICK LIQUIDS) NO STRAWS 2. TOTAL ASSIST WITH MEALS 3. CRUSH CRUSHABLE MEDS/PRESENT IN PUREE 4. CONSIDER VIDEO SWALLOW STUDY TO RULE OUT SILENT ASPIRATION 5. SKILLED DYSPHAGIA MANAGEMENT/TX 6. MEALTIME PROTOCOL POSTED AT BEDSIDE TO MINIMIZE RISK OF ASPIRATION.
[2019-05-02 16:00] VITALS: BP_SYST 108; BP_SYST 129; BP_DIAS 68; BP_DIAS 84
--- NOTE | 2019-05-02 17:12 | NUR ---
NURSE NOTES:WOUND CARE NOTES:Pt presented on admission with an Unstageable pressure injury R shoulder . Base of wound has 100% slough (L)0.4cm x (W)0.5cm with surrounding indurated and erythematous borders.(L)3cm x (W)3cm. Resolving pressure injury L hip. Non-blanching erythema noted with pink epithelial margins.No evidence of Skin breakdown to sacrum/buttocks. Pt noted to have maculo/papular rash to upper back ,R flank and bilat lower ext. Few scaled rashes noted on both lower ext. Pt confirmed lower ext are itchy but denied itching back. Stable dry eschar noted to lateral L 1st metatarsal dorsal aspects of L 1st,2nd 3rd and 5th metatarsals,R 1st 4th and 5th metatarsals. Both heels are soft but blanchable. No evidence of other skin breakdown noted. Tx.Plan: Cleanse wound R shoulder with Saline. Apply Therahoney.Apply Cavilon Skin Barrier periwound. Cover with Optifoam drsg. Change every 3 days and prn. Apply Moisture Barrier Paste to L hip. Cover with Optifoam drsg. Change every 3 days and prn. Apply Moisture Barrier Paste to Sacrum and R hip. Change every 3 days and prn. Apply Cavilon Skin Barrier to both heels. Cover each heel with Optifoam drsg. Change every 7 days and prn. Reposition at least every 2hours or as tolerated. Off-load heels with pillow.
[2019-05-02] MEDS: Ascorbic Acid 500mg tab ORAL SCH (18:11)
--- NOTE | 2019-05-02 19:45 | NUR ---
HAND-OFF: Report given to Raghavendra. Addendum: 05/02/19 at 1949 by Abi Castanon RN Endorsed high fall risk status to oncoming shift. Side rails up. Bed locked in lowest position, alarm on high sensitivity setting. Frequent rounding continues for patient safety.
[2019-05-02 20:00] VITALS: BP 144/96
--- NOTE | 2019-05-02 20:00 | NUR ---
NURSE NOTES: Received patient awake in bed, able to make needs known, no c/o pain at this time. IV line intact and patent. No SOB or acute distress. HOB elevated. Bed locked in lowest position, alarm on high sensitivity setting. 2 side rails up. Bilateral soft wrist restraints noted, skin underneath intact. Patient observed swinging both legs off bed, staff on unit aware of high fall risk status.
--- NOTE | 2019-05-02 20:54 | General Progress Note ---
Assessment/Plan Assessment/Plan: Assessment Anemia CPS COPD Recommendations follow labs PPI po as tolerated VERIFICATION REP to help locate family await family discussion Subjective Allergies: Coded Allergies: AZITHROMYCIN (Verified Allergy, Unknown, 04/30/19) Subjective confused NAD unable to contact / locate family to discuss order placed for VERIFICATION REP to assist locating next of kin Objective Last 24 Hour Vital Signs Date Time Temp Pulse Resp B/P (MAP) Pulse Ox O2 Delivery O2 Flow Rate FiO2 05/02/19 20:00 97.5 103 20 144/96 (112) 97 05/02/19 16:00 97.8 100 19 129/84 (99) 97 05/02/19 12:00 97.9 109 18 108/68 (81) 98 05/02/19 09:00 Room Air 05/02/19 08:00 97.7 109 17 151/98 (115) 97 05/02/19 04:00 97.7 91 18 99/60 (73) 94 05/02/19 00:00 97.9 81 18 93/53 (66) 95 05/01/19 21:00 Room Air Intake and Output 05/01/19 05/02/19 19:00 07:00 Intake Total 862.5 ml 576.663 ml Balance 862.5 ml 576.663 ml Intake Oral 480 ml IV Total 382.5 ml 576.663 ml # Voids 3 3 # Bowel Movements 6 4 Laboratory Tests 05/02/19 20:15: Vancomycin Level Trough [Pending] Height (Feet): 5 Height (Inches): 9.00 Weight (Pounds): 116 Objective Thin WM confused NCAT supple CTA RRR abd soft ND NT no edema OBS Claire Boles MD May 02, 2019 20:54
--- NOTE | 2019-05-02 22:02 | Consultation ---
DATE OF CONSULTATION: 05/02/2019 CONSULTING PHYSICIAN: Castro Donaldson M.D. REFERRING PHYSICIAN: Galen Garcia M.D. HISTORY OF PRESENT ILLNESS: This is a 73-year-old male with a history of dementia who has been admitted to the hospital for medical stabilization. The patient has a history of schizophrenia, COPD, and prostate hyperplasia. The patient is severely confused. He only knows his name. He is severely agitated, delusional and responding to internal stimuli. He is unable to be engaged and answer the questions appropriately. The patient has been tolerating , however, still attempting to come out of bed. PAST PSYCHIATRIC HISTORY: Schizophrenia, he has been on Seroquel. PAST MEDICAL HISTORY: COPD, prostatic hyperplasia. ALLERGIES: Azithromycin. SUBSTANCE ABUSE HISTORY: No known history of illicit drug use or alcohol. MENTAL STATUS EXAMINATION: The patient is alert and oriented times self. Mood is agitated. Affect is flat. Thought process is concrete. Thought content, no suicidal or homicidal ideation. Cognition is impaired. Insight and judgment is impaired. ASSESSMENT: Dementia with behavioral disturbance. PLAN: 1. Discontinue the Seroquel. 2. Start the patient on risperidone 1 mg p.o. b.i.d. 3. Ativan p.r.n. Jermaine Donaldson M.D. DR: ELVER JOB#: [id number] CC: VIANNEY
[2019-05-03] VITALS: BP 135/94
[2019-05-03] MEDS: LORazepam Inj 2mg/ml 1ml IV PRN ×3 (03:27→19:34)
[2019-05-03] MEDS: DiphenhydrAMINE 25mg Tab ORAL PRN ×3 (03:47→21:57)
[2019-05-03 04:00] VITALS: BP 129/88
[2019-05-03] MEDS: Piperacillin/Tazobactam 3.375 GM in NS 110 ML IVPB SCH ×3 (05:16→23:08)
--- NOTE | 2019-05-03 07:22 | NUR ---
HAND-OFF: Report given to YAMEL Dos Santos.
--- NOTE | 2019-05-03 07:23 | NUR ---
NURSE NOTES: Report received from Asha MONTESINOS. Patient is awake and alert x 1. Patient keeps yelling "open the door". Unable to re orient patient. Patined is currently on bilateral soft wrist restraints for patient safety. No new order needed at this time. Extremities not swollen, has good circulation, and patient can move fingers. Patient recognized as a high fall risk. LEARNING AND DEVELOPMENT ASSISTANT made aware, bed in lowest position, locked, and alarmed. Will preform frequent checks on patient. Patient noted to have condom catheter draining clear yellow urine. Will continue to follow plan of care.
[2019-05-03 07:24] LABS: BASOPHILS % (AUTO) 1.4 % (0.0-2.0); EOSINOPHILS % (AUTO) 3.5 % (0.0-3.0); HEMATOCRIT 32.3 % (42.0-52.0); HEMOGLOBIN 10.5 G/DL (14.2-18.0); LYMPHOCYTES % (AUTO) 20.3 % (20.0-45.0); MEAN CORPUSCULAR VOLUME 82 FL (80-99); MONOCYTES % (AUTO) 10.1 % (1.0-10.0); NEUTROPHILS % (AUTO) 64.6 % (45.0-75.0); PLATELET COUNT 570 K/UL (150-450); RED BLOOD COUNT 3.95 M/UL (4.70-6.10); RED CELL DISTRIBUTION WIDTH 15.3 % (11.6-14.8); WHITE BLOOD COUNT 6.7 K/UL (4.8-10.8)
[2019-05-03 07:33] LABS: INR 1.1 (0.9-1.1)
[2019-05-03 07:50] LABS: ALANINE AMINOTRANSFERASE 16 U/L (12-78); ALBUMIN 1.7 G/DL (3.4-5.0); ALBUMIN/GLOBULIN RATIO 0.4 (1.0-2.7); ALKALINE PHOSPHATASE 60 U/L (46-116); AMYLASE 20 U/L (25-115); ANION GAP 8 mmol/L (5-15); ASPARTATE AMINO TRANSFERASE 15 U/L (15-37); BILIRUBIN,TOTAL 0.4 MG/DL (0.2-1.0); BLOOD UREA NITROGEN 11 mg/dL (7-18); CALCIUM 8.4 MG/DL (8.5-10.1); CARBON DIOXIDE 24 MMOL/L (21-32); CHLORIDE 111 MMOL/L (98-107); POTASSIUM 4.3 MMOL/L (3.5-5.1); SODIUM 143 MMOL/L (136-145)
[2019-05-03 08:00] VITALS: BP 126/94
[2019-05-03] MEDS: Bisacodyl EC 5mg tab ORAL SCH (08:51)
--- NOTE | 2019-05-03 08:57 | General Progress Note ---
Assessment/Plan Assessment/Plan: anemia possible sepsis hypotension diarrhea tox met encephalopathy psych history PLAN psych eval to see patient and assist gi follow up monitor diarrhea and advised care reviewed stabilize and dc to snf once improved impression, plan, and exam edited and reviewed in detail care discussed with RN Subjective ROS Limited/Unobtainable: Yes Allergies: Coded Allergies: AZITHROMYCIN (Verified Allergy, Unknown, 04/30/19) Subjective care noted gi noted and awaiting family and discussed remains altered Objective Last 24 Hour Vital Signs Date Time Temp Pulse Resp B/P (MAP) Pulse Ox O2 Delivery O2 Flow Rate FiO2 05/03/19 08:10 106 20 95 Room Air 21 05/03/19 04:00 97.7 102 20 129/88 (102) 97 05/03/19 00:00 97.5 110 20 135/94 (108) 98 05/02/19 22:39 Room Air 05/02/19 20:00 97.5 103 20 144/96 (112) 97 05/02/19 16:00 97.8 100 19 129/84 (99) 97 05/02/19 12:00 97.9 109 18 108/68 (81) 98 05/02/19 09:00 Room Air Intake and Output 05/02/19 05/03/19 19:00 07:00 Output Total 800 ml 300 ml Balance -800 ml -300 ml Output Urine Total 800 ml 300 ml # Bowel Movements 4 5 Laboratory Tests 05/02/19 20:15: Vancomycin Level Trough 15.3H 05/03/19 06:10: White Blood Count 6.7, Red Blood Count 3.95L, Hemoglobin 10.5L, Hematocrit 32.3L , Mean Corpuscular Volume 82, Mean Corpuscular Hemoglobin 26.5L, Mean Corpuscular Hemoglobin Concent 32.4, Red Cell Distribution Width 15.3H, Platelet Count 570H, Mean Platelet Volume 5.5L, Neutrophils (%) (Auto) 64.6, Lymphocytes (%) (Auto) 20.3, Monocytes (%) (Auto) 10.1H, Eosinophils (%) (Auto) 3.5H, Basophils (%) (Auto) 1.4, Erythrocyte Sedimentation Rate 63H, Prothrombin Time 11.4, Prothromb Time International Ratio 1.1, Activated Partial Thromboplast Time 33, Sodium Level 143, Potassium Level 4.3, Chloride Level 111H , Carbon Dioxide Level 24, Anion Gap 8, Blood Urea Nitrogen 11, Creatinine 1.0, Estimat Glomerular Filtration Rate > 60, Glucose Level 79, Calcium Level 8.4L, Total Bilirubin 0.4, Aspartate Amino Transf (AST/SGOT) 15, Alanine Aminotransferase (ALT/SGPT) 16, Alkaline Phosphatase 60, C-Reactive Protein, Quantitative 7.1H, Total Protein 5.9L, Albumin 1.7L, Globulin 4.2, Albumin/ Globulin Ratio 0.4L, Amylase Level 20L, Lipase 45L Height (Feet): 5 Height (Inches): 9.00 Weight (Pounds): 116 Objective WDWN NAD clear breath sounds bilaterally without rhonchi or wheeze [id number] without MRG NABS nontender no HSM no CCE nonfocal reduced LOC Galen Garcia MD May 03, 2019 08:57
[2019-05-03] MEDS: Tamsulosin 0.4mg cap ORAL SCH (09:15)
[2019-05-03] MEDS: Vancomycin 750mg/NS 275ml IVPB SCH ×4 (09:15→19:45)
[2019-05-03] MEDS: Ascorbic Acid 500mg tab ORAL SCH ×2 (09:15→17:08)
--- NOTE | 2019-05-03 10:08 | NUR ---
RADIOLOGY DEPT., ABDOMEN AND CHEST X-RAY PERFORMED.-P.DYE
--- NOTE | 2019-05-03 10:14 | Diagnostic Imaging Report ---
Indication: Abdominal pain Technique: Supine view of the abdomen Comparison: none Findings: Small bowel loops are gas filled, borderline distended. Gas is seen within the colon. No masses or unusual calcifications. Absence of bowel gas within the pelvis may indicate a distended bladder Impression: Borderline gaseous small bowel distention, appearance nonspecific, could represent ileus or very early small bowel obstruction. Consider follow-up radiographs as indicated
--- NOTE | 2019-05-03 10:16 | Diagnostic Imaging Report ---
Indication: Cough Technique: One view of the chest Comparison: 04/30/2019 Findings: Interim development of bilateral mostly perihilar interstitial and airspace edema versus infiltrates and bilateral pleural effusions. The heart size is normal. The aorta is tortuous Impression: Bilateral infiltrates versus edema and bilateral pleural effusions, developing over 3 days
[2019-05-03 12:00] VITALS: BP 121/79
--- NOTE | 2019-05-03 12:30 | Surgery Progress Note ---
Surgery Progress Note Subjective Additional Comments no acute events comfortable Objective Last 24 Hour Vital Signs Date Time Temp Pulse Resp B/P (MAP) Pulse Ox O2 Delivery O2 Flow Rate FiO2 05/03/19 09:00 Room Air 05/03/19 08:10 106 20 95 Room Air 21 05/03/19 08:00 97.5 100 20 126/94 (105) 95 05/03/19 04:00 97.7 102 20 129/88 (102) 97 05/03/19 00:00 97.5 110 20 135/94 (108) 98 05/02/19 22:39 Room Air 05/02/19 20:00 97.5 103 20 144/96 (112) 97 05/02/19 16:00 97.8 100 19 129/84 (99) 97 I&O Intake and Output 05/02/19 05/03/19 19:00 07:00 Output Total 800 ml 300 ml Balance -800 ml -300 ml Output Urine Total 800 ml 300 ml # Bowel Movements 4 5 Dressing: other Wound: other Drains: other Cardiovascular: RSR Respiratory: decreased breath sounds Abdomen: soft, distended - gaseous , non-tender, present bowel sounds, decreased bowel sounds Extremities: no cyanosis Laboratory Tests Test 05/02/19 20:15 05/03/19 06:10 Vancomycin Level Trough 15.3 ug/mL (5.0-12.0) H White Blood Count 6.7 K/UL (4.8-10.8) Red Blood Count 3.95 M/UL (4.70-6.10) L Hemoglobin 10.5 G/DL (14.2-18.0) L Hematocrit 32.3 % (42.0-52.0) L Mean Corpuscular Volume 82 FL (80-99) Mean Corpuscular Hemoglobin 26.5 PG (27.0-31.0) L Mean Corpuscular Hemoglobin Concent 32.4 G/DL (32.0-36.0) Red Cell Distribution Width 15.3 % (11.6-14.8) H Platelet Count 570 K/UL (150-450) H Mean Platelet Volume 5.5 FL (6.5-10.1) L Neutrophils (%) (Auto) 64.6 % (45.0-75.0) Lymphocytes (%) (Auto) 20.3 % (20.0-45.0) Monocytes (%) (Auto) 10.1 % (1.0-10.0) H Eosinophils (%) (Auto) 3.5 % (0.0-3.0) H Basophils (%) (Auto) 1.4 % (0.0-2.0) Erythrocyte Sedimentation Rate 63 MM/HR (0-20) H Prothrombin Time 11.4 SEC (9.30-11.50) Prothromb Time International Ratio 1.1 (0.9-1.1) Activated Partial Thromboplast Time 33 SEC (23-33) Sodium Level 143 MMOL/L (136-145) Potassium Level 4.3 MMOL/L (3.5-5.1) Chloride Level 111 MMOL/L (98-107) H Carbon Dioxide Level 24 MMOL/L (21-32) Anion Gap 8 mmol/L (5-15) Blood Urea Nitrogen 11 mg/dL (7-18) Creatinine 1.0 MG/DL (0.55-1.30) Estimat Glomerular Filtration Rate > 60 mL/min (>60) Glucose Level 79 MG/DL (74-106) Calcium Level 8.4 MG/DL (8.5-10.1) L Total Bilirubin 0.4 MG/DL (0.2-1.0) Aspartate Amino Transf (AST/SGOT) 15 U/L (15-37) Alanine Aminotransferase (ALT/SGPT) 16 U/L (12-78) Alkaline Phosphatase 60 U/L (46-116) C-Reactive Protein, Quantitative 7.1 mg/dL (0.00-0.90) H Total Protein 5.9 G/DL (6.4-8.2) L Albumin 1.7 G/DL (3.4-5.0) L Globulin 4.2 g/dL Albumin/Globulin Ratio 0.4 (1.0-2.7) L Amylase Level 20 U/L (25-115) L Lipase 45 U/L (73-393) L Plan Problems: (1) Malnutrition Assessment & Plan: DAILY ESTIMATED NEEDS: Needs based on Underweight, wounds 52.7kg 30-35 kcals/kg 3207-7439 total kcals 1.25-1.5 g protein/kg 66-79 g total protein 25-30 mL/kg 7876-9812 total fluid mLs NUTRITION DIAGNOSIS: Increased kcal and pro needs r/t wound healing and underweight status as evidenced by pt w/ multiple open wounds, BMI underweight per guidelines, @73% of [place] Body Weight w/ generalized moderate to severe wasting. CURRENT DIET: Soft puree/ NTL PO DIET RECOMMENDATIONS: Regular diet/ texture per SLASHER OPERATOR ADDITIONAL RECOMMENDATIONS: 1) Rec to obtain a Calibrated bed scale wt 2) Wound care: (f/up w/ WC eval) RENETTA BID + VIT C 250mg BID + MVI w/ min qd 3) Add Snacks in b/w meals + Ensure BID 4) SLASHER OPERATOR eval for appropriate texture (2) Decubitus skin ulcer (3) Abscess of left shoulder (4) Diarrhea (5) Abdominal distension (gaseous) Assessment & Plan: Findings: Small bowel loops are gas filled, borderline distended. Gas is seen within the colon. No masses or unusual calcifications. Absence of bowel gas within the pelvis may indicate a distended bladder Impression: Borderline gaseous small bowel distention, appearance nonspecific, could represent ileus or very early small bowel obstruction. Consider follow-up radiographs as indicated likely ileus having bowel function will monitor Billy Horn May 03, 2019 12:29
--- NOTE | 2019-05-03 14:53 | NUR ---
CASE MANAGEMENT:INITIAL REVIEW 05/01/2019 73 YR OLD MALE BIBA FROM [facility] CC;ALOC SI;ANEMIA. DIARRHEA. THROMBOCYTOSIS. 101.2 125 20 104/67 945 ON RA H/H 7.5/25.8 K+ 3.3 IS;IVF NS BOLUS ATIVAN IV X1 CXR - No focal consolidation identified. Interstitial markings may represent chronic lung changes versus infectious inflammatory process. ADMITTED TO MED SURG MED SURG STATUS DCP;FROM [facility] CASE MANAGEMENT:REVIEW 05/02/2019 SI;ANEMIA. TOXIC METABOLIC ENCEPHALOPATHY. 97.5 109 20 151/98 97% ON RA H/H 10.5/32.3 CA 8.4 LIPASE 45 AMYLASE 20 IS;VANCOMYCIN IV Q12 HRS ZOSYN IV Q8 HRS IVF NS @ 100 ML/HR PROVENTIL HHN Q4 HRS MED SURG STATUS DCP;FROM [facility]
[2019-05-03 16:00] VITALS: BP 123/86
--- NOTE | 2019-05-03 17:33 | NUR ---
NURSE NOTES:WOUND CARE FOLLOW-UP NOTES: Called by primary nurse to re-evaluate pt. Pt now noted to have more onset of maculopapular red rash to upper chest ,both upper ext and axillae and abd. Few rashes noted to be scaled. Recommended to Primary nurse to call PCP and request Elimite if appropriate.
--- NOTE | 2019-05-03 18:15 | Progress Note ---
DATE: 05/03/2019 SUBJECTIVE: The patient is more manageable, calm. No behavior issues noted. The patient is not having any anxiety or agitation MENTAL STATUS EXAMINATION: Alert and confused, disoriented. Mood is neutral. Affect is flat. Thought process is disorganized. Thought content, no suicidal or homicidal ideation. Cognition is impaired. Insight and judgment, non-existent. ASSESSMENT: Dementia with behavior disturbance. PLAN: 1. Continue with soft restraints. 2. Seroquel 50 mg in the morning will be stopped. 3. Risperidone 1 mg twice a day. 4. Lorazepam. 5. Continue to follow and readjust the medications. Jermaine Donaldson M.D. DR: Rhona JOB#: [id number] CC: VIANNEY
[2019-05-03] MEDS ORDERED: Tubing IV Secondary IV ONE (18:35)
--- NOTE | 2019-05-03 19:17 | NUR ---
HAND-OFF: Report given to Asha MONTESINOS. Endorsed that patient is a high fall risk. Endorsed restraint renewal. Patient currently in stable condition.
[2019-05-03] MEDS ORDERED: ACETAMINOPHEN325 M1 ORAL (19:48)
[2019-05-03] MEDS ORDERED: SALAGEN5 MG PO (19:48)
[2019-05-03] MEDS ORDERED: BISACODYL10 M1 RC (19:52)
[2019-05-03] MEDS ORDERED: LOPERAMIDE2 M1 PO (19:57)
[2019-05-03 20:00] VITALS: BP 130/82
--- NOTE | 2019-05-03 20:00 | NUR ---
NURSE NOTES: Received patient awake in bed, able to make needs known, no c/o pain at this time. IV pulled out by patient, will reinsert new access. No SOB or acute distress. HOB elevated. Bed locked in lowest position, alarm on high sensitivity setting. 2 side rails up. Bilateral soft wrist restraints noted, skin underneath intact. Patient observed swinging both legs off bed, staff on unit aware of high fall risk status.
--- NOTE | 2019-05-03 22:41 | General Progress Note ---
Assessment/Plan Assessment/Plan: Assessment Anemia CPS COPD Recommendations follow labs PPI po as tolerated RESIDENT CARE SUPERVISOR to help locate family await family involvement Subjective Allergies: Coded Allergies: AZITHROMYCIN (Verified Allergy, Unknown, 04/30/19) Subjective confused NAD unable to contact / locate family to discuss RESIDENT CARE SUPERVISOR efforts noted and appreciated Objective Last 24 Hour Vital Signs Date Time Temp Pulse Resp B/P (MAP) Pulse Ox O2 Delivery O2 Flow Rate FiO2 05/03/19 19:56 102 20 95 Room Air 21 05/03/19 16:00 97.5 96 18 123/86 (98) 95 05/03/19 15:46 Room Air 05/03/19 12:00 97.9 101 21 121/79 (93) 93 05/03/19 09:00 Room Air 05/03/19 08:10 106 20 95 Room Air 21 05/03/19 08:00 97.5 100 20 126/94 (105) 95 05/03/19 04:00 97.7 102 20 129/88 (102) 97 05/03/19 00:00 97.5 110 20 135/94 (108) 98 Intake and Output 05/02/19 05/03/19 19:00 07:00 Intake Total 100 ml Output Total 800 ml 300 ml Balance -800 ml -200 ml IV Total 100 ml Output Urine Total 800 ml 300 ml # Bowel Movements 4 5 Laboratory Tests 05/03/19 06:10: White Blood Count 6.7, Red Blood Count 3.95L, Hemoglobin 10.5L, Hematocrit 32.3L , Mean Corpuscular Volume 82, Mean Corpuscular Hemoglobin 26.5L, Mean Corpuscular Hemoglobin Concent 32.4, Red Cell Distribution Width 15.3H, Platelet Count 570H, Mean Platelet Volume 5.5L, Neutrophils (%) (Auto) 64.6, Lymphocytes (%) (Auto) 20.3, Monocytes (%) (Auto) 10.1H, Eosinophils (%) (Auto) 3.5H, Basophils (%) (Auto) 1.4, Erythrocyte Sedimentation Rate 63H, Prothrombin Time 11.4, Prothromb Time International Ratio 1.1, Activated Partial Thromboplast Time 33, Sodium Level 143, Potassium Level 4.3, Chloride Level 111H , Carbon Dioxide Level 24, Anion Gap 8, Blood Urea Nitrogen 11, Creatinine 1.0, Estimat Glomerular Filtration Rate > 60, Glucose Level 79, Calcium Level 8.4L, Total Bilirubin 0.4, Aspartate Amino Transf (AST/SGOT) 15, Alanine Aminotransferase (ALT/SGPT) 16, Alkaline Phosphatase 60, C-Reactive Protein, Quantitative 7.1H, Total Protein 5.9L, Albumin 1.7L, Globulin 4.2, Albumin/ Globulin Ratio 0.4L, Amylase Level 20L, Lipase 45L Height (Feet): 5 Height (Inches): 9.00 Weight (Pounds): 116 Objective Thin WM confused NCAT supple CTA RRR abd soft ND NT no edema OBS Claire Boles MD May 03, 2019 22:41
[2019-05-04] VITALS: BP 115/77
[2019-05-04] MEDS: LORazepam Inj 2mg/ml 1ml IV PRN (02:32)
[2019-05-04] MEDS: DiphenhydrAMINE 25mg Tab ORAL PRN ×3 (02:32→20:42)
[2019-05-04 04:00] VITALS: BP 119/83
[2019-05-04] MEDS: Piperacillin/Tazobactam 3.375 GM in NS 110 ML IVPB SCH ×3 (05:06→22:27)
--- NOTE | 2019-05-04 07:00 | NUR ---
NURSE NOTES:Handoff received from YAMEL Barry. Patient received awake and alert but confused. Patient is in bilateral wrist restraints for impulsivity, pulling at lines and high fall risk. Patient is alert and able to make needs known on 3 liters oxygen via nasal cannula. Patient has IV site R forearm clean dry and intact, saline locked. Bed in the low and locked position with call light within reach, will continue to monitor patient.
--- NOTE | 2019-05-04 07:39 | NUR ---
HAND-OFF: Report given to YAMEL Joyner.
--- NOTE | 2019-05-04 07:51 | Pulmonology Progress Note ---
Assessment/Plan Assessment/Plan Pulmonary Progress Note Assessment/Plan: anemia possible sepsis pulmonary infiltrates hypotension diarrhea tox met encephalopathy psych history PLAN psych following gi follow up monitor diarrhea and advised care reviewed stabilize and dc to snf once improved impression, plan, and exam edited and reviewed in detail care discussed with RN Subjective ROS Limited/Unobtainable: Yes Allergies: Coded Allergies: AZITHROMYCIN (Verified Allergy, Unknown, 04/30/19) Subjective care noted gi noted and awaiting family and discussed remains altered Objective Vital Signs Noted Laboratory Tests Noted Height (Feet): 5 Height (Inches): 9.00 Weight (Pounds): 116 Objective WDWN NAD clear breath sounds bilaterally without rhonchi or wheeze [id number] without MRG NABS nontender no HSM no CCE nonfocal reduced LOC Subjective ROS Limited/Unobtainable: No Allergies: Coded Allergies: AZITHROMYCIN (Verified Allergy, Unknown, 04/30/19) Objective Last 24 Hour Vital Signs Date Time Temp Pulse Resp B/P (MAP) Pulse Ox O2 Delivery O2 Flow Rate FiO2 05/04/19 04:00 97.5 106 20 119/83 (95) 95 05/04/19 00:00 97.4 90 20 115/77 (90) 95 05/03/19 23:36 Room Air 05/03/19 20:00 97.8 93 18 130/82 (98) 95 05/03/19 19:56 102 20 95 Room Air 21 05/03/19 16:00 97.5 96 18 123/86 (98) 95 05/03/19 15:46 Room Air 05/03/19 12:00 97.9 101 21 121/79 (93) 93 05/03/19 09:00 Room Air 05/03/19 08:10 106 20 95 Room Air 21 05/03/19 08:00 97.5 100 20 126/94 (105) 95 Intake and Output 05/03/19 05/04/19 19:00 07:00 Intake Total 1065.000 ml Balance 1065.000 ml Intake Oral 380 ml IV Total 685.000 ml # Voids 6 5 # Bowel Movements 7 4 Current Medications Medications (Trade) Dose Ordered Sig/Rachel Route PRN Reason Start Time Stop Time Status Last Admin Dose Admin Acetaminophen (Tylenol) 650 mg Q4H PRN ORAL Mild Pain/Temp > 100.5 05/01/19 08:00 05/31/19 07:59 Al Hydroxide/Mg Hydroxide (Mylanta) 30 ml Q4H PRN ORAL Abdominal cramps 05/01/19 07:15 05/31/19 07:14 Albuterol Sulfate (Proventil) 2.76163 mg Q4H PRN HHN Shortness of Breath 05/01/19 07:30 05/06/19 07:29 Ascorbic Acid (Vitamin C) 250 mg TWICE A DAY ORAL 05/02/19 18:00 06/01/19 17:59 05/03/19 17:08 Bisacodyl (Dulcolax) 10 mg DAILY ORAL 05/01/19 09:00 05/31/19 08:59 05/02/19 10:13 Diphenhydramine HCl (Benadryl) 25 mg Q4H PRN ORAL Itching 05/01/19 07:30 05/31/19 07:29 05/04/19 02:32 Famotidine (Pepcid) 40 mg DAILY ORAL 05/01/19 09:00 05/31/19 08:59 05/03/19 09:13 Loperamide HCl (Imodium) 2 mg Q4H PRN ORAL Diarrhea 05/01/19 07:30 05/31/19 07:29 05/02/19 17:05 Lorazepam (Ativan 2mg/ml 1ml) 1 mg Q4H PRN IV For Anxiety 05/01/19 11:30 05/08/19 11:29 05/04/19 02:32 Midodrine (Pro-Amatine) 5 mg TWICE A DAY ORAL 05/01/19 09:00 05/31/19 08:59 05/03/19 17:08 Multivitamins (Multivitamins) 1 tab DAILY ORAL 05/03/19 09:00 06/02/19 08:59 05/03/19 09:15 Pantoprazole (Protonix) 40 mg DAILY ORAL 05/01/19 09:00 05/31/19 08:59 05/03/19 09:13 Piperacillin Sod/ Tazobactam Sod 3.375 gm/Sodium Chloride 110 ml @ 27.5 mls/hr Q8HR IVPB 05/01/19 12:00 05/08/19 11:59 05/04/19 05:06 Risperidone (RisperDAL) 1 mg BID ORAL 05/02/19 14:00 06/01/19 13:59 05/03/19 17:08 Sodium Chloride 1,000 ml @ 100 mls/hr Q10H IV 05/01/19 08:00 05/31/19 07:59 05/03/19 09:15 Tamsulosin HCl (Flomax) 0.4 mg DAILY ORAL 05/01/19 09:00 05/31/19 08:59 05/03/19 09:15 Vancomycin HCl (Vanco rx to dose) 1 ea DAILY PRN MISC Per rx protocol 05/01/19 07:15 05/31/19 07:14 Vancomycin HCl 750 mg/Sodium Chloride 275 ml @ 183.333 mls/hr Q12HR IVPB 05/01/19 21:00 05/06/19 20:59 05/03/19 19:45 Sharif Rosenthal MD May 04, 2019 07:51
[2019-05-04 08:00] VITALS: BP 131/95
[2019-05-04] MEDS: Bisacodyl EC 5mg tab ORAL SCH (10:00)
[2019-05-04] MEDS: Tamsulosin 0.4mg cap ORAL SCH (10:05)
[2019-05-04] MEDS: Ascorbic Acid 500mg tab ORAL SCH ×2 (10:06→17:24)
--- NOTE | 2019-05-04 10:07 | NUR ---
NURSE NOTES: Nightshift RN stated patient has been having loose stools. withheld dulcolax for loose BM.
--- NOTE | 2019-05-04 10:26 | NUR ---
NURSE NOTES: Dropped Risperidone on the floor. wasted in the med waste and pulled another to administer to patient, will call pharmacy to update.
[2019-05-04] MEDS: Vancomycin 750mg/NS 275ml IVPB SCH ×4 (11:02→20:43)
[2019-05-04 12:00] VITALS: BP 130/75
--- NOTE | 2019-05-04 12:25 | CDS Physician Query ---
Clarification is required for compliance, coding accuracy, and to reflect severity of illness for this patient Dear Dr. Galen Garcia Date: 05/04/2019 Privacy Specialist/CDS Name: Hortencia Alanis Clinical Documentation states: HNP: 81-year-old male with history of paranoid schizophrenia, dementia who was noted to be extremely agitated with foul- smelling diarrhea. Surgery Consult: Malnutrition...Needs based on Underweight RD note: Increased kcal and pro needs r/t wound healing and underweight status as evidenced by pt w/ multiple open wounds, BMI underweight per guidelines, @73 % of [place] Body Weight w/ generalized moderate to severe wasting. BMI: 17.0 Please select the most appropriate option: [] Mild Protein/Calorie Malnutrition [x] Moderate Protein/Calorie Malnutrition [] Severe Protein/Calorie Malnutrition [] Unable to determine [] Not Applicable Present on Admission: [x] Yes [] No [] Clinically Undetermined Physician signature Date Please also document in your Progress Notes and/or Discharge Summary and indicate if the condition was present on admission. PREETHID
--- NOTE | 2019-05-04 14:12 | NUR ---
CASE MANAGEMENT:NOTE FAX RECEIVED FROM [facility] FOR PATIENT WITH DOCUMENTS OF CLIENT RELATIONSHIP. FAX GIVEN TO Travis WILKINS BRAILLE TYPIST AND PLACED IN PATIENTS CHART
--- NOTE | 2019-05-04 14:57 | NUR ---
P.T Note: Pt refused to participate in P.T. Will follow up tomorrow.
--- NOTE | 2019-05-04 15:01 | NUR ---
CASE MANAGEMENT:REVIEW SI;ANEMIA. COPD. TOXIC MET ENCEPHALOPATHY. 98.8 106 20 131/95 95% ON RA NO LABS AVAILABLE IS;VANCOMYCIN OV Q12 HRS ZOSYN IV Q8 HRS PROTONIX PO QD IVF NS @ 100 ML/HR MED SURG STATUS PLAN;DC TO SNF WHEN STABLE GI FOLLOW UP DCP;FROM SAIRA TARIQ
[2019-05-04 16:00] VITALS: BP 145/92
--- NOTE | 2019-05-04 19:30 | NUR ---
NURSE NOTES: Received patient in bed. A&OX1 with confusion. IV sites are patent and intact. Restraint noted on bilateral wrists, radial pulse present, skin intact. Bed in lowest position. Call light within reach. Will continue to monitor.
[2019-05-04 20:00] VITALS: BP 151/99
--- NOTE | 2019-05-04 20:35 | General Progress Note ---
Assessment/Plan Assessment/Plan: Assessment Anemia CPS COPD Recommendations follow labs PPI po as tolerated await call back form conservator Subjective Allergies: Coded Allergies: AZITHROMYCIN (Verified Allergy, Unknown, 04/30/19) Subjective confused NAD COMPUTER TECHNOLOGIST noted message left with Candie Patrice to call back to discuss Objective Last 24 Hour Vital Signs Date Time Temp Pulse Resp B/P (MAP) Pulse Ox O2 Delivery O2 Flow Rate FiO2 05/04/19 16:00 98.8 111 21 145/92 (109) 96 05/04/19 12:00 98.8 96 20 130/75 (93) 98 05/04/19 09:00 Room Air 05/04/19 08:22 98 20 96 Room Air 21 05/04/19 08:00 97.8 101 19 131/95 (107) 97 05/04/19 04:00 97.5 106 20 119/83 (95) 95 05/04/19 00:00 97.4 90 20 115/77 (90) 95 05/03/19 23:36 Room Air Intake and Output 05/03/19 05/04/19 19:00 07:00 Intake Total 1065.000 ml Balance 1065.000 ml Intake Oral 380 ml IV Total 685.000 ml # Voids 6 5 # Bowel Movements 7 4 Height (Feet): 5 Height (Inches): 9.00 Weight (Pounds): 115 Objective Thin WM confused NCAT supple CTA RRR abd soft ND NT no edema OBS Claire Boles MD May 04, 2019 20:34
[2019-05-05] VITALS: BP 172/121
--- NOTE | 2019-05-05 00:25 | NUR ---
NURSE NOTES: Call and left message to Dr. Garcia regarding patient's BP 172/121, HR 105. Waiting a call back.
[2019-05-05] MEDS: LORazepam Inj 2mg/ml 1ml IV PRN ×2 (00:35→21:32)
[2019-05-05 03:57] VITALS: BP 128/84
[2019-05-05] MEDS: Piperacillin/Tazobactam 3.375 GM in NS 110 ML IVPB SCH ×3 (05:22→21:48)
--- NOTE | 2019-05-05 05:45 | NUR ---
NURSE NOTES: Dr. Garcia responded call. Notified current BP 128/84 HR 84. No new order at this time.
--- NOTE | 2019-05-05 07:00 | NUR ---
NURSE NOTES: handoff received from YAMEL Singh. Patient received agitated and calling out for benadryl. Patient condom cath is disconnected, will reapply. Patient is in bilateral wrist restraints for safety, impulsivity/high fall risk. Bed in the low and locked position with call light within reach. Iv site is clean dry and intact, running prescribed fluids. Patient denies pain at this time. Addendum: 05/05/19 at 0739 by Ar Read RN Communicated with care team that patient is high fall risk, so that frequent monitoring can be continued to help prevent patient falls.
--- NOTE | 2019-05-05 07:18 | NUR ---
HAND-OFF: Report given to Ar MONTESINOS.
[2019-05-05 08:00] VITALS: BP 129/90
[2019-05-05] MEDS: Bisacodyl EC 5mg tab ORAL SCH (09:14)
[2019-05-05] MEDS: Ascorbic Acid 500mg tab ORAL SCH ×2 (09:14→17:37)
[2019-05-05] MEDS: Tamsulosin 0.4mg cap ORAL SCH (09:14)
[2019-05-05] MEDS: Vancomycin 750mg/NS 275ml IVPB SCH ×4 (09:14→21:21)
[2019-05-05] MEDS ORDERED: Fleet's Enema 133ml RECTAL SCH (11:00)
[2019-05-05 12:00] VITALS: BP 141/98
[2019-05-05] MEDS ORDERED: Magnesium Citrate Liq Btl ORAL SCH (12:00)
--- NOTE | 2019-05-05 13:08 | NUR ---
RD ASSESSMENT & RECOMMENDATIONS SEE CARE ACTIVITY FOR COMPLETE ASSESSMENT DAILY ESTIMATED NEEDS: Needs based on Underweight, wounds 52.7kg 30-35 kcals/kg 4586-5486 total kcals 1.25-1.5 g protein/kg 66-79 g total protein 25-30 mL/kg 6817-5566 total fluid mLs NUTRITION DIAGNOSIS: Increased kcal and pro needs r/t wound healing and underweight status as evidenced by pt w/ unstageable wound @ R shoulder and resolving pressure injury @ L hip. BMI underweight per guidelines, @73% of [place] Body Weight w/ generalized moderate to severe wasting. CURRENT DIET: Soft puree/ NTL PO DIET RECOMMENDATIONS: Regular diet/ texture per PARTNERSHIP MANAGER ADDITIONAL RECOMMENDATIONS: 1) Rec to obtain a Calibrated bed scale wt 2) Wound care: add MVI x 1 and ViT C 250mg BID Gilmer 1pkt BID 3) Ensure enlive once daily to ensure needs are met (350kcal/20g prot per bottle) 4) PARTNERSHIP MANAGER eval for appropriate texture 5) HOLD STOOL SOFTENERS/LAXATIVES: + diarrhea
--- NOTE | 2019-05-05 13:12 | Surgery Progress Note ---
Surgery Progress Note Subjective Symptoms: improved Objective Last 24 Hour Vital Signs Date Time Temp Pulse Resp B/P (MAP) Pulse Ox O2 Delivery O2 Flow Rate FiO2 05/05/19 12:00 97.4 97 19 141/98 (112) 96 05/05/19 09:00 Room Air 05/05/19 08:00 97.3 108 19 129/90 (103) 96 05/05/19 07:38 94 20 94 Room Air 21 05/05/19 03:57 97.2 84 19 128/84 (99) 95 05/05/19 00:00 97.3 105 21 172/121 (138) 96 05/04/19 21:00 Room Air 05/04/19 20:15 101 20 96 Room Air 21 05/04/19 20:00 98.2 98 21 151/99 (116) 96 05/04/19 16:00 98.8 111 21 145/92 (109) 96 I&O Intake and Output 05/04/19 05/05/19 19:00 07:00 Intake Total 1060 ml 1412.500 ml Output Total 0 ml Balance 1060 ml 1412.500 ml Intake Oral 960 ml IV Total 100 ml 1412.500 ml Output Urine Total 0 ml # Voids 2 # Bowel Movements 7 1 Dressing: other Wound: other Drains: other Cardiovascular: RSR Respiratory: decreased breath sounds Abdomen: soft, present bowel sounds Extremities: no cyanosis Plan Problems: (1) Malnutrition Assessment & Plan: DAILY ESTIMATED NEEDS: Needs based on Underweight, wounds 52.7kg 30-35 kcals/kg 4586-1694 total kcals 1.25-1.5 g protein/kg 66-79 g total protein 25-30 mL/kg 2568-0033 total fluid mLs NUTRITION DIAGNOSIS: Increased kcal and pro needs r/t wound healing and underweight status as evidenced by pt w/ multiple open wounds, BMI underweight per guidelines, @73% of [place] Body Weight w/ generalized moderate to severe wasting. CURRENT DIET: Soft puree/ NTL PO DIET RECOMMENDATIONS: Regular diet/ texture per CHIN STRAP MAKER ADDITIONAL RECOMMENDATIONS: 1) Rec to obtain a Calibrated bed scale wt 2) Wound care: (f/up w/ WC eval) RENETTA BID + VIT C 250mg BID + MVI w/ min qd 3) Add Snacks in b/w meals + Ensure BID 4) CHIN STRAP MAKER eval for appropriate texture (2) Decubitus skin ulcer (3) Abscess of left shoulder (4) Diarrhea (5) Abdominal distension (gaseous) Assessment & Plan: kub ordered Additional Comments This is a late entry as patient was seen on 08/02/2019. Unfortunately was called to the emerge department following to the operating room and was unable to complete notes. Billy Horn May 05, 2019 13:12
--- NOTE | 2019-05-05 13:13 | Surgery Progress Note ---
Surgery Progress Note Subjective Additional Comments Patient seen and examined bedside. No acute events. Resting comfortably. No nausea vomiting fever chills. Objective Last 24 Hour Vital Signs Date Time Temp Pulse Resp B/P (MAP) Pulse Ox O2 Delivery O2 Flow Rate FiO2 05/05/19 12:00 97.4 97 19 141/98 (112) 96 05/05/19 09:00 Room Air 05/05/19 08:00 97.3 108 19 129/90 (103) 96 05/05/19 07:38 94 20 94 Room Air 21 05/05/19 03:57 97.2 84 19 128/84 (99) 95 05/05/19 00:00 97.3 105 21 172/121 (138) 96 05/04/19 21:00 Room Air 05/04/19 20:15 101 20 96 Room Air 21 05/04/19 20:00 98.2 98 21 151/99 (116) 96 05/04/19 16:00 98.8 111 21 145/92 (109) 96 I&O Intake and Output 05/04/19 05/05/19 19:00 07:00 Intake Total 1060 ml 1412.500 ml Output Total 0 ml Balance 1060 ml 1412.500 ml Intake Oral 960 ml IV Total 100 ml 1412.500 ml Output Urine Total 0 ml # Voids 2 # Bowel Movements 7 1 Plan Problems: (1) Malnutrition Assessment & Plan: DAILY ESTIMATED NEEDS: Needs based on Underweight, wounds 52.7kg 30-35 kcals/kg 9046-9856 total kcals 1.25-1.5 g protein/kg 66-79 g total protein 25-30 mL/kg 5098-6753 total fluid mLs NUTRITION DIAGNOSIS: Increased kcal and pro needs r/t wound healing and underweight status as evidenced by pt w/ unstageable wound @ R shoulder and resolving pressure injury @ L hip. BMI underweight per guidelines, @73% of [place] Body Weight w/ generalized moderate to severe wasting. CURRENT DIET: Soft puree/ NTL PO DIET RECOMMENDATIONS: Regular diet/ texture per MOLD DESIGNER ADDITIONAL RECOMMENDATIONS: 1) Rec to obtain a Calibrated bed scale wt 2) Wound care: add MVI x 1 and ViT C 250mg BID Gilmer 1pkt BID 3) Ensure enlive once daily to ensure needs are met (350kcal/20g prot per bottle) 4) MOLD DESIGNER eval for appropriate texture 5) HOLD STOOL SOFTENERS/LAXATIVES: + diarrhea (2) Decubitus skin ulcer Assessment & Plan: :Pt presented on admission with an Unstageable pressure injury R shoulder . Base of wound has 100% slough (L)0.4cm x (W)0.5cm with surrounding indurated and erythematous borders.(L)3cm x (W)3cm. Resolving pressure injury L hip. Non-blanching erythema noted with pink epithelial margins.No evidence of Skin breakdown to sacrum/buttocks. Pt noted to have maculo/papular rash to upper back ,R flank and bilat lower ext. Few scaled rashes noted on both lower ext. Pt confirmed lower ext are itchy but denied itching back. Stable dry eschar noted to lateral L 1st metatarsal dorsal aspects of L 1st,2nd 3rd and 5th metatarsals,R 1st 4th and 5th metatarsals. Both heels are soft but blanchable. No evidence of other skin breakdown noted. Tx.Plan: Cleanse wound R shoulder with Saline. Apply Therahoney.Apply Cavilon Skin Barrier periwound. Cover with Optifoam drsg. Change every 3 days and prn. Apply Moisture Barrier Paste to L hip. Cover with Optifoam drsg. Change every 3 days and prn. Apply Moisture Barrier Paste to Sacrum and R hip. Change every 3 days and prn. Apply Cavilon Skin Barrier to both heels. Cover each heel with Optifoam drsg. Change every 7 days and prn. Reposition at least every 2hours or as tolerated. Off-load heels with pillow. (3) Abscess of left shoulder (4) Diarrhea (5) Abdominal distension (gaseous) Assessment & Plan: Findings: Small bowel loops are gas filled, borderline distended. Gas is seen within the colon. No masses or unusual calcifications. Absence of bowel gas within the pelvis may indicate a distended bladder Impression: Borderline gaseous small bowel distention, appearance nonspecific, could represent ileus or very early small bowel obstruction. Consider follow-up radiographs as indicated KUB revealed and no specific findings. Abdominal exam improving. Passing flatus. Diet as tolerated. Billy Horn May 05, 2019 13:13
--- NOTE | 2019-05-05 13:30 | NUR ---
NURSE NOTES: Magnesium Citrate bowel prep brought up to the floor. Patient is on nectar thick liquids. Took bowel prep to dietary and requested the liquid thickened to nectar thick as patient is aspiration precaution. Bowel prep thickened to nectar thick consistency.
--- NOTE | 2019-05-05 14:40 | NUR ---
NURSE NOTES: Patient managed to get out of bilateral wrist restraints and out of bed, in the process patient's IV was pulled out and the IV tubing snapped. Witnessed by another RN who placed the patient back into bed. IV replaced and IV fluids continued. Patient is anxious and keeps shouting out for water. Patient is NPO per MD orders for EGD and colonoscopy. Patient given ice chips.
[2019-05-05 16:00] VITALS: BP 130/78
--- NOTE | 2019-05-05 16:17 | NUR ---
ST NOTES: SWALLOW STATUS: PATIENT SEEN FOR DYSPHAGIA. UNABLE TO GIVE PO TRIALS DUE TO UPCOMING PROCEDURE AND NEED TO BE NPO. 100% INTAKE OF PUREED AND NECTAR THICK LIQUID DIET W/O OVERT ASPIRATION. EDENTULOUS BUT SHOULD BE ABLE TO TOLERATE MECH SOFT GROUND DIET AND CONTINUE WITH NECTAR THICK LIQUIDS UNTIL HE HAS A MODIFIED BARIUM SWALLOW STUDY IP OR OP IF DC. UNABLE TO COMPLETE STUDY TODAY DUE TO SCHEDULE CONFLICTS. THE PATIENT IS RESTRAINED NOW BUT RN SAYS THAT WHEN HE SELF-FEEDS, HE TAKES LARGE BITES. EDUCATED/TRAINED RN BRITTA IN POSTED ASPIRATION PRECAUTIONS AND SWALLOW STRATEGY SIGN. REGULAR DIET TYPE AND SEND ENSURE ENLIVE ONE CAN ONE TIME PER DAY PER RD (AMIRA). PLAN: CONTINUE WITH PO INTAKE BUT UPGRADE TO MECH SOFT GROUND DIET AND CONTINUE WITH NECTAR THICK LIQUIDS WITH POSTED PRECAUTIONS AND ASSIST WITH MEALS FOR SLOW RATE AND SMALLER BITES.
--- NOTE | 2019-05-05 17:12 | General Progress Note ---
Assessment/Plan Assessment/Plan: anemia possible sepsis hypotension diarrhea tox met encephalopathy psych history PLAN psych follow up gi follow up and await scope care reviewed stabilize and dc to snf once improved impression, plan, and exam edited and reviewed in detail care discussed with RN Subjective Allergies: Coded Allergies: AZITHROMYCIN (Verified Allergy, Unknown, 04/30/19) Subjective care noted gi noted and dpoa would like to proceed remains altered and agitated Objective Last 24 Hour Vital Signs Date Time Temp Pulse Resp B/P (MAP) Pulse Ox O2 Delivery O2 Flow Rate FiO2 05/05/19 12:00 97.4 97 19 141/98 (112) 96 05/05/19 09:00 Room Air 05/05/19 08:00 97.3 108 19 129/90 (103) 96 05/05/19 07:38 94 20 94 Room Air 21 05/05/19 03:57 97.2 84 19 128/84 (99) 95 05/05/19 00:00 97.3 105 21 172/121 (138) 96 05/04/19 21:00 Room Air 05/04/19 20:15 101 20 96 Room Air 21 05/04/19 20:00 98.2 98 21 151/99 (116) 96 Intake and Output 05/04/19 05/05/19 19:00 07:00 Intake Total 1060 ml 1412.500 ml Output Total 0 ml Balance 1060 ml 1412.500 ml Intake Oral 960 ml IV Total 100 ml 1412.500 ml Output Urine Total 0 ml # Voids 2 # Bowel Movements 7 1 Height (Feet): 5 Height (Inches): 9.00 Weight (Pounds): 115 Objective WDWN NAD clear breath sounds bilaterally without rhonchi or wheeze [id number] without MRG NABS nontender no HSM no CCE nonfocal reduced LOC Galen Garcia MD May 05, 2019 17:12
--- NOTE | 2019-05-05 19:42 | NUR ---
HAND-OFF: Report given to YAMEL Navarro. Plan of care endorsed,informed RN that patient is high fall risk and to make other care staff aware so that patient can be monitored more closely.
[2019-05-05 20:00] VITALS: BP 146/97
[2019-05-05] MEDS ORDERED: Bisacodyl EC 5mg tab ORAL SCH (20:00)
--- NOTE | 2019-05-05 20:00 | NUR ---
NURSE NOTES: Received report from YAMEL Joyner. AAO x 1, on room air. Pt pulled IV, will insert new IV. Pt is on NPO. Consent sign form in the chart. Patient is in bilateral wrist restraints for safety. Confuse, impulsivity/high fall risk. Fall and aspiration precaution maintained. HOB elevated. Bed in the low and locked position with call light within reach, side rails up, alarm on. Will continue to monitor.
--- NOTE | 2019-05-05 21:45 | NUR ---
NURSE NOTES: Scheduled Vanco 750mg @ 2100 not given due to high Vanco trough from lisset
[2019-05-06] VITALS (11 sets, daily range): BP systolic 98–156; BP diastolic 64–103
[2019-05-06] MEDS: LORazepam Inj 2mg/ml 1ml IV PRN ×3 (01:35→18:33)
[2019-05-06] MEDS ORDERED: Fleet's Enema 133ml RECTAL SCH (05:00)
[2019-05-06] MEDS: Piperacillin/Tazobactam 3.375 GM in NS 110 ML IVPB SCH ×3 (05:07→21:12)
[2019-05-06] MEDS ORDERED: Succinylcholine 20mg/ml 10ml vial ONE (06:32)
--- NOTE | 2019-05-06 06:50 | NUR ---
NURSE NOTES: Bowel prep done, light brown liquid BM noted.
[2019-05-06] MEDS ORDERED: Propofol 200mg/20ml IV ONE (07:00)
[2019-05-06] MEDS ORDERED: Lidocaine 1% MPF 10mg/ml 5ml ONE (07:00)
[2019-05-06] MEDS ORDERED: Phenylephrine 10mg/ml Vial ONE (07:00)
--- NOTE | 2019-05-06 07:02 | Anethesia Preoperative Eval ---
Anesthesia Pre-op PMH/ROS General Date of Evaluation: May 06, 2019 Time of Evaluation: 06:45 Anesthesiologist: Autumn Gleason CRNA ASA Score: ASA 3 Mallampati Score Class I : Soft palate, uvula, fauces, pillars visible Class II: Soft palate, uvula, fauces visible Class III: Soft palate, base of uvula visible Class IV: Only hard plate visible Mallampati Classification: Class I Surgeon: Ramana Diagnosis: anemia, r/o I bleed Surgical Procedure: EGD, colonoscopy Social History: smoking Family History: no anesthesia problems Allergies: Coded Allergies: AZITHROMYCIN (Verified Allergy, Unknown, 04/30/19) Medications: see eMAR Patient NPO?: Yes NPO Date: May 06, 2019 NPO Time: 00:00 Past Medical History Cardiovascular: Reports: HTN, other - ER admit for hypotension, AMS; Denies: CAD, UT, valve dz, arrhythmia Pulmonary: Reports: COPD; Denies: asthma, LAUREN, other Gastrointestinal/Genitourinary: Reports: other - BPH; Denies: GERD, CRI, ESRD Neurologic/Psychiatric: Reports: dementia - schizophrenia, AMS, TIA; Denies: CVA, depression/anxiety, other Endocrine: Denies: DM, hypothyroidism, steroids, other HEENT: Denies: cataract (L), cataract (R), glaucoma, [place] (L), [place] (R), other Hematology/Immune: Reports: anemia; Denies: DVT, bleeding disorder, other Musculoskeletal/Integumentary: Reports: OA, other - scabies PMH Narrative: as noted above PSxH Narrative: see H & P Anesthesia Pre-op Phys. Exam Physician Exam Last Vital Signs Date Time Temp Pulse Resp B/P (MAP) Pulse Ox O2 Delivery O2 Flow Rate FiO2 05/06/19 04:00 97.8 98 21 150/103 (119) 98 05/05/19 21:00 Room Air 05/05/19 07:38 21 Constitutional: NAD, other - contractured Neurologic: other - disoriented Cardiovascular: RRR Respiratory: CTA Gastrointestinal: S/NT/ND Airway Exam Mallampati Score: Class I MO: full Neck: stiff neck TMD: > 3 FB ROM: limited Teeth: missing Dentures: no upper, no lower Anesthesia Pre-op A/P Labs Labs Test 05/05/19 20:00 Vancomycin Level Trough 21.6 ug/mL (5.0-12.0) Studies Pre-op Studies: other - CXR 04/30/2019: (B) pleural effusions, infiltrates vs. edema Risk Assessment & Plan Assessment: ASA 3, ok to proceed Plan: MAC Status Change Before Surgery: No Pre-Antibiotics Given Within 1 Hr of Incision: Autumn Rincon CRNA May 06, 2019 07:02
--- NOTE | 2019-05-06 07:15 | General Progress Note ---
Assessment/Plan Assessment/Plan: Assessment Anemia CPS COPD Recommendations follow labs PPI EGD/Colon today Subjective Allergies: Coded Allergies: AZITHROMYCIN (Verified Allergy, Unknown, 04/30/19) Subjective confused NAD NPO for EGD/Colon Objective Last 24 Hour Vital Signs Date Time Temp Pulse Resp B/P (MAP) Pulse Ox O2 Delivery O2 Flow Rate FiO2 05/06/19 04:00 97.8 98 21 150/103 (119) 98 05/06/19 00:00 97.1 91 20 145/92 (109) 96 05/05/19 21:00 Room Air 05/05/19 20:00 98.3 104 22 146/97 (113) 98 05/05/19 16:00 97.8 108 20 130/78 (95) 96 05/05/19 12:00 97.4 97 19 141/98 (112) 96 05/05/19 09:00 Room Air 05/05/19 08:00 97.3 108 19 129/90 (103) 96 05/05/19 07:38 94 20 94 Room Air 21 Intake and Output 05/05/19 05/06/19 19:00 07:00 Intake Total 340 ml 900 ml Balance 340 ml 900 ml Intake Oral 240 ml IV Total 100 ml 900 ml # Voids 4 # Bowel Movements 1 Laboratory Tests 05/05/19 20:00: Vancomycin Level Trough 21.6H Height (Feet): 5 Height (Inches): 7.00 Weight (Pounds): 114 Objective Thin WM confused NCAT supple CTA RRR abd soft ND NT no edema OBS Claire Boles MD May 06, 2019 07:15
--- NOTE | 2019-05-06 07:16 | Pre-Procedure Note/Attestation ---
Pre-Procedure Note/Attestation Complete Prior to Procedure Planned Procedure: not applicable Procedure Narrative: esophagogastroduodenoscopy colon Indications for Procedure Pre-Operative Diagnosis: anemia Attestation I attest that I discussed the nature of the procedure; its benefits; risks and complications; and alternatives (and the risks and benefits of such alternatives ), prior to the procedure, with the patient (or the patient's legal asset protection representative). I attest that, if there was a reasonable possibility of needing a blood transfusion, the patient (or the patient's legal asset protection representative) was given the [facility] standardized written summary, pursuant to the Harry [place]au Blood Safety Act ([place] Health and Safety Code # 1645, as amended). I attest that I re-evaluated the patient just prior to the surgery and that there has been no change in the patient's H&P, except as documented below: Claire Boles MD May 06, 2019 07:16
--- NOTE | 2019-05-06 07:20 | NUR ---
NURSE NOTES: Report received from Melanie MONTESINOS. Patient is currently off the unit with GI for colonscopy and EGD. Was endorsed by previous nurse that patient is alert and oriented x 1 and is a high fall risk. Endorsed to day shift STEEL CHECKER that patient is a fall risk, and that patient tries to get out of bed. Patient has bilateral soft wrist restraints for patient safety. Restraints renewed on May 05, 2019 @ 1022. No need for renewal at this time. Will continue to follow plan of care when patient returns to unit.
--- NOTE | 2019-05-06 07:33 | NUR ---
NURSE NOTES: GI lab picked up pt @ 0700. Consent sign forms and chart given.
--- NOTE | 2019-05-06 07:34 | NUR ---
HAND-OFF: Report given to YAMEL Dos Santos. Addendum: 05/06/19 at 0740 by JOHN SOLIZ RN RN NURSE NOTES: Informed latesha RN that patient is high fall risk and to make other care staff aware.
--- NOTE | 2019-05-06 07:43 | Immediate Post-Op Evaluation ---
Immediate Post-Op Evalulation Immediate Post-Op Evalulation Procedure: EGD, colonoscopy Date of Evaluation: May 06, 2019 Time of Evaluation: 08:20 IV Fluids: 0.9 NS 300 ml Blood Pressure Systolic: 101 Blood Pressure Diastolic: 67 Pulse Rate: 71 Respiratory Rate: 20 O2 Sat by Pulse Oximetry: 100 Temperature (Fahrenheit): 97.0 Pain Score (1-10): 0 Nausea: No Vomiting: No Patient Status: reacts, patent Hydration Status: adequate Given Within 1 Hr of Incision: Autumn Rincon CRNA May 06, 2019 07:43
--- NOTE | 2019-05-06 08:45 | NUR ---
NURSE NOTES: Patient returned to unit. Safely transferred back to bed. Patient is awake and alert x 1. Unable to reorient patient. Patient reconnected to IV and fluids running per MD orders. Restraints reapplied due to patient safety. No need for restraint renewal at this time. Will resume diet per MD orders. Nursing report received from Fe. Patient in stable condition. Will continue to follow plan of care.
[2019-05-06] MEDS: Bisacodyl EC 5mg tab ORAL SCH (09:00)
[2019-05-06] MEDS: Vancomycin 500mg/D5W 110ml IVPB SCH ×4 (09:07→20:08)
[2019-05-06] MEDS: Ascorbic Acid 500mg tab ORAL SCH ×2 (09:08→17:10)
[2019-05-06] MEDS: Tamsulosin 0.4mg cap ORAL SCH (09:08)
--- NOTE | 2019-05-06 12:12 | 48 Hour Post Anesthesia Eval ---
Post Anesthesia Evaluation Procedure: EGD, colonoscopy Date of Evaluation: May 06, 2019 Time of Evaluation: 12:12 Blood Pressure Systolic: 129 0: 71 Pulse Rate: 94 Respiratory Rate: 22 Temperature (Fahrenheit): 98.0 O2 Sat by Pulse Oximetry: 99 Airway: patent Nausea: No Vomiting: No Pain Intensity: 0 Hydration Status: adequate Cardiopulmonary Status: stable Mental Status/LOC: patient returned to baseline Follow-up Care/Observations: per hospitalist Post-Anesthesia Complications: none Follow-up care needed: N/A Autumn Gleason CRNA May 06, 2019 12:12
--- NOTE | 2019-05-06 14:17 | Surgery Progress Note ---
Surgery Progress Note Subjective Additional Comments no acute events comfortable Objective Last 24 Hour Vital Signs Date Time Temp Pulse Resp B/P (MAP) Pulse Ox O2 Delivery O2 Flow Rate FiO2 05/06/19 12:12 94 22 99 05/06/19 12:00 98.5 94 19 150/90 (110) 99 05/06/19 11:55 94 22 99 Room Air 21 05/06/19 09:00 Room Air 05/06/19 08:45 98.0 80 20 129/71 (90) 99 05/06/19 08:25 97.0 69 15 104/67 98 Room Air 05/06/19 08:20 68 13 109/64 97 Room Air 05/06/19 08:19 71 20 100 05/06/19 08:15 70 15 103/70 100 Nasal Cannula 3 05/06/19 08:10 70 16 101/69 100 Nasal Cannula 3 05/06/19 08:06 97.0 71 14 98/77 100 Nasal Cannula 3 05/06/19 04:00 97.8 98 21 150/103 (119) 98 05/06/19 00:00 97.1 91 20 145/92 (109) 96 05/05/19 21:00 Room Air 05/05/19 20:00 98.3 104 22 146/97 (113) 98 05/05/19 16:00 97.8 108 20 130/78 (95) 96 I&O Intake and Output 05/05/19 05/06/19 19:00 07:00 Intake Total 340 ml 900 ml Balance 340 ml 900 ml Intake Oral 240 ml IV Total 100 ml 900 ml # Voids 4 # Bowel Movements 6 Dressing: other Wound: other Drains: other Cardiovascular: RSR Respiratory: decreased breath sounds Abdomen: soft, present bowel sounds Extremities: no tenderness, no cyanosis Laboratory Tests Test 05/05/19 20:00 Vancomycin Level Trough 21.6 ug/mL (5.0-12.0) H Plan Problems: (1) Malnutrition Assessment & Plan: DAILY ESTIMATED NEEDS: Needs based on Underweight, wounds 52.7kg 30-35 kcals/kg 2141-5075 total kcals 1.25-1.5 g protein/kg 66-79 g total protein 25-30 mL/kg 5870-6607 total fluid mLs NUTRITION DIAGNOSIS: Increased kcal and pro needs r/t wound healing and underweight status as evidenced by pt w/ unstageable wound @ R shoulder and resolving pressure injury @ L hip. BMI underweight per guidelines, @73% of [place] Body Weight w/ generalized moderate to severe wasting. CURRENT DIET: Soft puree/ NTL PO DIET RECOMMENDATIONS: Regular diet/ texture per REAL ESTATE REPRESENTATIVE ADDITIONAL RECOMMENDATIONS: 1) Rec to obtain a Calibrated bed scale wt 2) Wound care: add MVI x 1 and ViT C 250mg BID Gilmer 1pkt BID 3) Ensure enlive once daily to ensure needs are met (350kcal/20g prot per bottle) 4) REAL ESTATE REPRESENTATIVE eval for appropriate texture 5) HOLD STOOL SOFTENERS/LAXATIVES: + diarrhea (2) Decubitus skin ulcer Assessment & Plan: :Pt presented on admission with an Unstageable pressure injury R shoulder . Base of wound has 100% slough (L)0.4cm x (W)0.5cm with surrounding indurated and erythematous borders.(L)3cm x (W)3cm. Resolving pressure injury L hip. Non-blanching erythema noted with pink epithelial margins.No evidence of Skin breakdown to sacrum/buttocks. Pt noted to have maculo/papular rash to upper back ,R flank and bilat lower ext. Few scaled rashes noted on both lower ext. Pt confirmed lower ext are itchy but denied itching back. Stable dry eschar noted to lateral L 1st metatarsal dorsal aspects of L 1st,2nd 3rd and 5th metatarsals,R 1st 4th and 5th metatarsals. Both heels are soft but blanchable. No evidence of other skin breakdown noted. Tx.Plan: Cleanse wound R shoulder with Saline. Apply Therahoney.Apply Cavilon Skin Barrier periwound. Cover with Optifoam drsg. Change every 3 days and prn. Apply Moisture Barrier Paste to L hip. Cover with Optifoam drsg. Change every 3 days and prn. Apply Moisture Barrier Paste to Sacrum and R hip. Change every 3 days and prn. Apply Cavilon Skin Barrier to both heels. Cover each heel with Optifoam drsg. Change every 7 days and prn. Reposition at least every 2hours or as tolerated. Off-load heels with pillow. (3) Abscess of left shoulder (4) Diarrhea (5) Abdominal distension (gaseous) Assessment & Plan: Findings: Small bowel loops are gas filled, borderline distended. Gas is seen within the colon. No masses or unusual calcifications. Absence of bowel gas within the pelvis may indicate a distended bladder Impression: Borderline gaseous small bowel distention, appearance nonspecific, could represent ileus or very early small bowel obstruction. Consider follow-up radiographs as indicated KUB revealed and no specific findings. Abdominal exam improving. Passing flatus. Diet as tolerated. Billy Horn May 06, 2019 14:17
--- NOTE | 2019-05-06 15:55 | NUR ---
CASE MANAGEMENT: REVIEW SI;S/P EDG W/BIOPSY. S/P COLONOSCOPY W/BIOPSY. 98.5 94 22 150/90 98% ON RA NO LABS IS;VANCOMYCIN IV Q12 HRS ZOSYN IV Q8 HRS PROTONIX PO QD MIDODRINE O BID IVF NS @ 100 ML/HR MED SURG STATUS DCP;FROM [facility]AR[facility]
--- NOTE | 2019-05-06 16:00 | Progress Note ---
DATE: 05/06/2019 SUBJECTIVE: The patient continues to be having episodes of agitation. He usually is delusional, responding to internal stimuli. The patient is currently on risperidone 1 mg b.i.d. the patient also continued to come out of the restraints. MENTAL STATUS EXAMINATION: The patient is alert, oriented x0. Mood is anxious. Affect is flat. Thought process is concrete. Thought content, no suicidal or homicidal ideation. Cognition is impaired. Insight and judgment is impaired. PLAN: 1. We will start the patient on Remeron 7.5 mg at bedtime. 2. Continue the risperidone. 3. Elevate the head of the bed. Jermaine Donaldson M.D. DR: ELVER JOB#: [id number] CC:
--- NOTE | 2019-05-06 17:15 | General Progress Note ---
Assessment/Plan Assessment/Plan: anemia possible sepsis hypotension diarrhea tox met encephalopathy psych history PLAN psych follow up gi follow up and await final results care reviewed stabilize and dc planning once cleared and no further work up planned impression, plan, and exam edited and reviewed in detail care discussed with RN Subjective ROS Limited/Unobtainable: Yes Allergies: Coded Allergies: AZITHROMYCIN (Verified Allergy, Unknown, 04/30/19) Subjective care noted underwent EGD and colonscopy remains altered and agitated Objective Last 24 Hour Vital Signs Date Time Temp Pulse Resp B/P (MAP) Pulse Ox O2 Delivery O2 Flow Rate FiO2 05/06/19 12:12 94 22 99 05/06/19 12:00 98.5 94 19 150/90 (110) 99 05/06/19 11:55 94 22 99 Room Air 21 05/06/19 09:00 Room Air 05/06/19 08:45 98.0 80 20 129/71 (90) 99 05/06/19 08:25 97.0 69 15 104/67 98 Room Air 05/06/19 08:20 68 13 109/64 97 Room Air 05/06/19 08:19 71 20 100 05/06/19 08:15 70 15 103/70 100 Nasal Cannula 3 05/06/19 08:10 70 16 101/69 100 Nasal Cannula 3 05/06/19 08:06 97.0 71 14 98/77 100 Nasal Cannula 3 05/06/19 04:00 97.8 98 21 150/103 (119) 98 05/06/19 00:00 97.1 91 20 145/92 (109) 96 05/05/19 21:00 Room Air 05/05/19 20:00 98.3 104 22 146/97 (113) 98 Intake and Output 05/05/19 05/06/19 19:00 07:00 Intake Total 340 ml 1000 ml Balance 340 ml 1000 ml Intake Oral 240 ml IV Total 100 ml 1000 ml # Voids 4 # Bowel Movements 6 Laboratory Tests 05/05/19 20:00: Vancomycin Level Trough 21.6H Height (Feet): 5 Height (Inches): 7.00 Weight (Pounds): 114 Objective WDWN NAD clear breath sounds bilaterally without rhonchi or wheeze [id number] without MRG NABS nontender no HSM no CCE nonfocal reduced LOC Galen Garcia MD May 06, 2019 17:15
--- NOTE | 2019-05-06 17:50 | Endoscopy Procedure Note ---
Endoscopy Procedure Note General Indication for Procedure: anemia Procedures Performed: EGD, colonoscopy Operative Findings/Diagnosis: gastritis, ischemic colitis Specimen: yes Pt Tolerated Procedure Well: Yes Estimated Blood Loss: none Anesthesia Anesthesiologist: see attached Anesthesia: MAC Inserted Devices Implant(s) used?: No GI Core Measures 50 yrs or older w/o bx or poly: Not Applicable 10yrs. F/U recommended: Not Applicable Claire Boles MD May 06, 2019 17:50
--- NOTE | 2019-05-06 17:51 | Brief Operative Note ---
Immediate Post Operative Note Operative Note Chief Complaint: anemia Pre-op Diagnosis: anemia Procedure: esophagogastroduodenoscopy bx, colon bx Post-op Diagnosis: ischemic colitis Surgeon: mariajose Specimen: yes Complications: none Condition: stable Fluids: recorded Implant(s) used?: No Claire Boles MD May 06, 2019 17:51
--- NOTE | 2019-05-06 18:30 | Procedure Note ---
DATE OF PROCEDURE: 05/06/2019 GASTROENTEROLOGY PROCEDURE REPORT PROCEDURE: Upper gastrointestinal endoscopy with biopsy as well as colonoscopy with biopsy. SURGEON: Claire Boles M.D. ANESTHESIA: Please see the separate report. DESCRIPTION OF PROCEDURE: Procedure, its risks, indications, alternatives, and possible complications were explained to the conservator and informed consent was obtained. The patient was then sedated and diagnostic upper endoscope was introduced through the oropharynx and advanced to the duodenum. The endoscope was then gradually withdrawn and mucosa examined carefully. No abnormalities were seen and biopsies of the duodenum were sent to pathology for review. Thereafter a rectal exam was done and colonoscope was placed in the rectum and advanced to the cecum. The preparation was very poor and only large mass lesions could be excluded. There was ulcerations seen in the circumferential fashion starting at about 15 cm and extending to about 40 cm covering much of the sigmoid colon. This was felt to be likely ischemic colitis. Random biopsy of the right colon and the left colon were sent to pathology for review. The patient was sent to recovery in good condition. COMPLICATIONS: None. ASSESSMENT: The findings of the examination are suggestive of ischemic colitis. The patient will need to be hydrated aggressively and the consideration may have to be made to tube feedings in the future should the patient's oral intake be so poor that lead to his dehydration. RECOMMENDATIONS: 1. IV fluid and hydration. 2. Resume oral diet. 3. Monitor intake. 4. Consideration to eventual gastrostomy tube placement. Claire Boles M.D. DR: Jada JOB#: [id number] CC:
--- NOTE | 2019-05-06 19:25 | NUR ---
HAND-OFF: Report given to Minsu RN. Endorsed that patient is a high fall risk. Reviewed patient safety and restraints. Patient in stable condition.
--- NOTE | 2019-05-06 19:32 | NUR ---
NURSE NOTES: Patient awake and verbally responsive within confusion. Breathing unlabored without apparent distress. No s/s or complaints of pain noted at this time. Bed placed at the lowest with alarm, brake, and siderails up for safety. Patient high risk for fall. Patient is placed in front of nursing station. Cautioned patient about the fall risk. Reinforced the restraint order placed for patient safety. Provided position change at this time. Will continue to monitor frequently to prevent any risk of fall. Call light placed within reach. Will continue to monitor and provide care as ordered.
[2019-05-07] VITALS: BP 139/90
[2019-05-07 04:00] VITALS: BP 124/78
[2019-05-07] MEDS: Piperacillin/Tazobactam 3.375 GM in NS 110 ML IVPB SCH ×3 (05:13→22:55)
--- NOTE | 2019-05-07 06:30 | General Progress Note ---
Assessment/Plan Problem List: (1) Ischemic colitis ICD Codes: K55.9 - Vascular disorder of intestine, unspecified SNOMED: 09549801 (2) Abdominal distension (gaseous) ICD Codes: R14.0 - Abdominal distension (gaseous) SNOMED: 761482413 (3) Anemia ICD Codes: D64.9 - Anemia, unspecified SNOMED: 619118173 (4) Diarrhea ICD Codes: R19.7 - Diarrhea, unspecified SNOMED: 33418092 (5) Thrombocytosis ICD Codes: D47.3 - Essential (hemorrhagic) thrombocythemia SNOMED: 8427651 (6) Decubitus skin ulcer ICD Codes: L89.90 - Pressure ulcer of unspecified site, unspecified stage SNOMED: 973521261 (7) Malnutrition ICD Codes: E46 - Unspecified protein-calorie malnutrition SNOMED: 17251781 Assessment/Plan: s/p colonoscopy>> ischemic colitis abx iv hydration fu labs ppi push po's Subjective ROS Limited/Unobtainable: Yes Allergies: Coded Allergies: AZITHROMYCIN (Verified Allergy, Unknown, 04/30/19) Objective Last 24 Hour Vital Signs Date Time Temp Pulse Resp B/P (MAP) Pulse Ox O2 Delivery O2 Flow Rate FiO2 05/07/19 04:00 97.9 77 21 124/78 (93) 96 05/07/19 00:00 98.0 100 22 139/90 (106) 97 05/06/19 20:00 97.3 108 22 156/92 (113) 98 05/06/19 19:51 95 20 97 Room Air 21 05/06/19 18:52 Room Air 05/06/19 16:00 97.2 100 18 143/92 (109) 97 05/06/19 12:12 94 22 99 05/06/19 12:00 98.5 94 19 150/90 (110) 99 05/06/19 11:55 94 22 99 Room Air 21 05/06/19 09:00 Room Air 05/06/19 08:45 98.0 80 20 129/71 (90) 99 05/06/19 08:25 97.0 69 15 104/67 98 Room Air 05/06/19 08:20 68 13 109/64 97 Room Air 05/06/19 08:19 71 20 100 05/06/19 08:15 70 15 103/70 100 Nasal Cannula 3 05/06/19 08:10 70 16 101/69 100 Nasal Cannula 3 05/06/19 08:06 97.0 71 14 98/77 100 Nasal Cannula 3 Intake and Output 05/06/19 05/07/19 18:59 06:59 Intake Total 1740.0 ml 720.0 ml Output Total 0 ml Balance 1740.0 ml 720.0 ml Intake Oral 520 ml IV Total 1220.0 ml 720.0 ml Estimated Blood Loss 0 ml # Voids 3 # Bowel Movements 8 Height (Feet): 5 Height (Inches): 7.00 Weight (Pounds): 114 General Appearance: alert EENT: normal ENT inspection Neck: supple Cardiovascular: normal rate Respiratory/Chest: decreased breath sounds Abdomen: normal bowel sounds, non tender, soft Extremities: non-tender Devin Ortiz MD May 07, 2019 06:30
--- NOTE | 2019-05-07 06:50 | NUR ---
NURSE NOTES: Provided proper incontinence care throughout the shift. R/L shoulder dressing, R/L hip dressing, sacral prophylactic dressing, and L heel dressing changed for WCP. WCP taken and uploaded. Patient tolerated well. Will continue to monitor.
--- NOTE | 2019-05-07 07:06 | NUR ---
HAND-OFF: Report given to YAMEL Dos Santos. Plan of care endorsed.
--- NOTE | 2019-05-07 07:07 | NUR ---
NURSE NOTES: Report received from Minsu RN. Patient is alert and oriented x 1 and is a high fall risk. Endorsed to day shift HYGIENE TEACHER that patient is a fall risk, and that patient tries to get out of bed. Patient has bilateral soft wrist restraints for patient safety. Restraints renewed on May 05, 2019 @ 1022. No need for renewal at this time. Right forearm 22 elder IV noted with fluids running per MD orders. Will continue to follow plan of care when patient returns to unit.
[2019-05-07 08:00] VITALS: BP 166/103
[2019-05-07] MEDS: Bisacodyl EC 5mg tab ORAL SCH (09:00)
[2019-05-07] MEDS: Ascorbic Acid 500mg tab ORAL SCH ×2 (09:13→17:48)
[2019-05-07] MEDS: Vancomycin 500mg/D5W 110ml IVPB SCH ×4 (09:13→21:55)
[2019-05-07] MEDS: Tamsulosin 0.4mg cap ORAL SCH (09:13)
--- NOTE | 2019-05-07 10:35 | NUR ---
NURSE NOTES: Patient's blood pressure of 166/103. No PRN blood pressure medication. Doctor Jose contacted. New order for clonidine 0.1 mg Q4H PRN SBP >150.
--- NOTE | 2019-05-07 10:50 | Pulmonology Progress Note ---
Assessment/Plan Assessment/Plan Pulmonary Progress Note Assessment/Plan: anemia possible sepsis hypotension diarrhea tox met encephalopathy psych history decubitus PLAN psych follow up Surgery following gi follow up and await final results care reviewed stabilize and dc planning once cleared and no further work up planned impression, plan, and exam edited and reviewed in detail care discussed with RN Subjective ROS Limited/Unobtainable: Yes Allergies: Coded Allergies: AZITHROMYCIN (Verified Allergy, Unknown, 04/30/19) Subjective care noted underwent EGD and colonscopy remains altered and agitated Objective Vital Signs Noted Laboratory Tests Noted Imaging: Noted: Height (Feet): 5 Height (Inches): 7.00 Weight (Pounds): 114 Objective WDWN NAD clear breath sounds bilaterally without rhonchi or wheeze [id number] without MRG NABS nontender no HSM no CCE nonfocal reduced LOC Subjective ROS Limited/Unobtainable: No Allergies: Coded Allergies: AZITHROMYCIN (Verified Allergy, Unknown, 04/30/19) Objective Last 24 Hour Vital Signs Date Time Temp Pulse Resp B/P (MAP) Pulse Ox O2 Delivery O2 Flow Rate FiO2 05/07/19 09:00 Room Air 05/07/19 08:00 97.3 95 18 166/103 (124) 94 05/07/19 04:00 97.9 77 21 124/78 (93) 96 05/07/19 00:00 98.0 100 22 139/90 (106) 97 05/06/19 20:00 97.3 108 22 156/92 (113) 98 05/06/19 19:51 95 20 97 Room Air 21 05/06/19 18:52 Room Air 05/06/19 16:00 97.2 100 18 143/92 (109) 97 05/06/19 12:12 94 22 99 05/06/19 12:00 98.5 94 19 150/90 (110) 99 05/06/19 11:55 94 22 99 Room Air 21 Intake and Output 05/06/19 05/07/19 19:00 07:00 Intake Total 1640.0 ml 747.5 ml Output Total 0 ml 950 ml Balance 1640.0 ml -202.5 ml Intake Oral 520 ml IV Total 1120.0 ml 747.5 ml Output Urine Total 950 ml Estimated Blood Loss 0 ml # Voids 3 1 # Bowel Movements 8 Current Medications Medications (Trade) Dose Ordered Sig/Rachel Route PRN Reason Start Time Stop Time Status Last Admin Dose Admin Acetaminophen (Tylenol) 650 mg Q4H PRN ORAL Mild Pain/Temp > 100.5 05/01/19 08:00 05/31/19 07:59 Al Hydroxide/Mg Hydroxide (Mylanta) 30 ml Q4H PRN ORAL Abdominal cramps 05/01/19 07:15 05/31/19 07:14 Ascorbic Acid (Vitamin C) 250 mg TWICE A DAY ORAL 05/02/19 18:00 06/01/19 17:59 05/07/19 09:13 Bisacodyl (Dulcolax) 10 mg DAILY ORAL 05/01/19 09:00 05/31/19 08:59 05/05/19 09:14 Clonidine HCl (Catapres Tab) 0.1 mg Q4H PRN ORAL For High Blood Pressure 05/07/19 10:45 06/06/19 10:44 Diphenhydramine HCl (Benadryl) 25 mg Q4H PRN ORAL Itching 05/01/19 07:30 05/31/19 07:29 05/04/19 20:42 Lorazepam (Ativan 2mg/ml 1ml) 1 mg Q4H PRN IV For Anxiety 05/01/19 11:30 05/08/19 11:29 05/06/19 18:33 Midodrine (Pro-Amatine) 5 mg TWICE A DAY ORAL 05/01/19 09:00 05/31/19 08:59 05/07/19 09:13 Mirtazapine (Remeron) 7.5 mg BEDTIME ORAL 05/06/19 21:00 06/05/19 20:59 05/06/19 20:07 Multivitamins (Multivitamins) 1 tab DAILY ORAL 05/03/19 09:00 06/02/19 08:59 05/07/19 09:13 Pantoprazole (Protonix) 40 mg DAILY ORAL 05/01/19 09:00 05/31/19 08:59 05/07/19 09:13 Piperacillin Sod/ Tazobactam Sod 3.375 gm/Sodium Chloride 110 ml @ 27.5 mls/hr Q8HR IVPB 05/01/19 12:00 05/08/19 11:59 05/07/19 05:13 Risperidone (RisperDAL) 1 mg BID ORAL 05/02/19 14:00 06/01/19 13:59 05/07/19 09:13 Sodium Chloride 1,000 ml @ 100 mls/hr Q10H IV 05/01/19 08:00 05/31/19 07:59 05/07/19 04:01 Tamsulosin HCl (Flomax) 0.4 mg DAILY ORAL 05/01/19 09:00 05/31/19 08:59 05/07/19 09:13 Vancomycin HCl (Vanco rx to dose) 1 ea DAILY PRN MISC Per rx protocol 05/01/19 07:15 05/31/19 07:14 Vancomycin HCl 500 mg/Dextrose 110 ml @ 110 mls/hr Q12HR IVPB 05/06/19 09:00 05/11/19 08:59 05/07/19 09:13 Sharif Rosenthal MD May 07, 2019 10:50
[2019-05-07 12:00] VITALS: BP 149/90
--- NOTE | 2019-05-07 12:56 | Surgery Progress Note ---
Surgery Progress Note Subjective Symptoms: improved, tolerating diet, voiding well, passing flatus, BM, pain decreased Objective Last 24 Hour Vital Signs Date Time Temp Pulse Resp B/P (MAP) Pulse Ox O2 Delivery O2 Flow Rate FiO2 05/07/19 12:00 97.5 85 19 149/90 (109) 98 05/07/19 11:05 166/103 05/07/19 09:00 Room Air 05/07/19 08:00 97.3 95 18 166/103 (124) 94 05/07/19 04:00 97.9 77 21 124/78 (93) 96 05/07/19 00:00 98.0 100 22 139/90 (106) 97 05/06/19 20:00 97.3 108 22 156/92 (113) 98 05/06/19 19:51 95 20 97 Room Air 21 05/06/19 18:52 Room Air 05/06/19 16:00 97.2 100 18 143/92 (109) 97 I&O Intake and Output 05/06/19 05/07/19 19:00 07:00 Intake Total 1640.0 ml 747.5 ml Output Total 0 ml 950 ml Balance 1640.0 ml -202.5 ml Intake Oral 520 ml IV Total 1120.0 ml 747.5 ml Output Urine Total 950 ml Estimated Blood Loss 0 ml # Voids 3 1 # Bowel Movements 8 Dressing: other Wound: other Drains: other Cardiovascular: RSR Respiratory: clear, decreased breath sounds Abdomen: soft, present bowel sounds, non-distended Extremities: no edema, no tenderness, no cyanosis Plan Problems: (1) Malnutrition Assessment & Plan: DAILY ESTIMATED NEEDS: Needs based on Underweight, wounds 52.7kg 30-35 kcals/kg 6467-5683 total kcals 1.25-1.5 g protein/kg 66-79 g total protein 25-30 mL/kg 6172-9486 total fluid mLs NUTRITION DIAGNOSIS: Increased kcal and pro needs r/t wound healing and underweight status as evidenced by pt w/ unstageable wound @ R shoulder and resolving pressure injury @ L hip. BMI underweight per guidelines, @73% of [place] Body Weight w/ generalized moderate to severe wasting. CURRENT DIET: Soft puree/ NTL PO DIET RECOMMENDATIONS: Regular diet/ texture per COLLEGE BASKETBALL COACH ADDITIONAL RECOMMENDATIONS: 1) Rec to obtain a Calibrated bed scale wt 2) Wound care: add MVI x 1 and ViT C 250mg BID Gilmer 1pkt BID 3) Ensure enlive once daily to ensure needs are met (350kcal/20g prot per bottle) 4) COLLEGE BASKETBALL COACH eval for appropriate texture 5) HOLD STOOL SOFTENERS/LAXATIVES: + diarrhea (2) Decubitus skin ulcer Assessment & Plan: :Pt presented on admission with an Unstageable pressure injury R shoulder . Base of wound has 100% slough (L)0.4cm x (W)0.5cm with surrounding indurated and erythematous borders.(L)3cm x (W)3cm. Resolving pressure injury L hip. Non-blanching erythema noted with pink epithelial margins.No evidence of Skin breakdown to sacrum/buttocks. Pt noted to have maculo/papular rash to upper back ,R flank and bilat lower ext. Few scaled rashes noted on both lower ext. Pt confirmed lower ext are itchy but denied itching back. Stable dry eschar noted to lateral L 1st metatarsal dorsal aspects of L 1st,2nd 3rd and 5th metatarsals,R 1st 4th and 5th metatarsals. Both heels are soft but blanchable. No evidence of other skin breakdown noted. Tx.Plan: Cleanse wound R shoulder with Saline. Apply Therahoney.Apply Cavilon Skin Barrier periwound. Cover with Optifoam drsg. Change every 3 days and prn. Apply Moisture Barrier Paste to L hip. Cover with Optifoam drsg. Change every 3 days and prn. Apply Moisture Barrier Paste to Sacrum and R hip. Change every 3 days and prn. Apply Cavilon Skin Barrier to both heels. Cover each heel with Optifoam drsg. Change every 7 days and prn. Reposition at least every 2hours or as tolerated. Off-load heels with pillow. (3) Abscess of left shoulder (4) Diarrhea (5) Abdominal distension (gaseous) Assessment & Plan: Findings: Small bowel loops are gas filled, borderline distended. Gas is seen within the colon. No masses or unusual calcifications. Absence of bowel gas within the pelvis may indicate a distended bladder Impression: Borderline gaseous small bowel distention, appearance nonspecific, could represent ileus or very early small bowel obstruction. Consider follow-up radiographs as indicated KUB revealed and no specific findings. Abdominal exam improving. Passing flatus. Diet as tolerated. Billy Horn May 07, 2019 12:56
[2019-05-07 16:00] VITALS: BP 130/88
--- NOTE | 2019-05-07 18:43 | NUR ---
NURSE NOTES: Received telephone call from Rosana Lewis. Rosana stated to be sister of patient Bj Lewis as well as the power of process improvement specialist. Rosana stated that she [place]. Gave Rosana fax number to to fax proper paper work to [facility] [place] [facility]. Rosana stated she will do that this coming Thursday. Levon MONTESINOS also obtained Rosana's number as case management and social workers have been trying to locate family of patient. Will endorse number to next nurse. Rosana Pelayooff (sister of patient) [phone]
--- NOTE | 2019-05-07 19:27 | NUR ---
HAND-OFF: Report given to Minsu RN. Endorsed that patient is a high fall risk. Patient in stable condition.
--- NOTE | 2019-05-07 19:30 | NUR ---
NURSE NOTES: Patient awake and verbally responsive with confusion. Breathing unlabored on room air without distress. No s/s or complaints of pain noted at this time. IV noted intact on right forearm running IVF as ordered. Patient on P200 mattress. On bilateral soft wrist restraint for patient safety. Pulses present on bilateral wrist, active range of motion within the restraint, and skin intact. Bed placed at the lowest with alarm, brake, and siderails up for safety. Call light placed within reach. Will continue to monitor and provide care as ordered.
[2019-05-07 20:00] VITALS: BP 149/91
[2019-05-08] VITALS (7 sets, daily range): BP systolic 126–161; BP diastolic 69–140
--- NOTE | 2019-05-08 01:52 | Consultation ---
DATE OF CONSULTATION: 05/07/2019 CONSULTING PHYSICIAN: Jermaine Donaldson M.D. HISTORY OF PRESENT ILLNESS: The patient is calm. The patient is agitated at times, easily agitated. MENTAL STATUS EXAMINATION: The patient is alert and oriented times self. Mood is anxious. Affect is flat. Thought process, there is a paucity of thought content. Thought content, no suicidal or homicidal ideation. ASSESSMENT: Dementia with behavior disturbance. PLAN: 1. Continue Remeron. 2. Risperidone. 3. Provide the patient with reality orientation and supportive therapy. Jermaine Donaldson M.D. DR: GUY JOB#: [id number] CC:
[2019-05-08] MEDS: Piperacillin/Tazobactam 3.375 GM in NS 110 ML IVPB SCH (05:31)
--- NOTE | 2019-05-08 05:56 | General Progress Note ---
Assessment/Plan Problem List: (1) Ischemic colitis ICD Codes: K55.9 - Vascular disorder of intestine, unspecified SNOMED: 58069942 (2) Abdominal distension (gaseous) ICD Codes: R14.0 - Abdominal distension (gaseous) SNOMED: 791176247 (3) Anemia ICD Codes: D64.9 - Anemia, unspecified SNOMED: 887207318 (4) Diarrhea ICD Codes: R19.7 - Diarrhea, unspecified SNOMED: 53880577 (5) Thrombocytosis ICD Codes: D47.3 - Essential (hemorrhagic) thrombocythemia SNOMED: 8116891 (6) Decubitus skin ulcer ICD Codes: L89.90 - Pressure ulcer of unspecified site, unspecified stage SNOMED: 051631801 (7) Malnutrition ICD Codes: E46 - Unspecified protein-calorie malnutrition SNOMED: 98785911 Assessment/Plan: s/p colonoscopy>> ischemic colitis abx iv hydration fu labs ppi push po's Subjective ROS Limited/Unobtainable: No Allergies: Coded Allergies: AZITHROMYCIN (Verified Allergy, Unknown, 04/30/19) Objective Last 24 Hour Vital Signs Date Time Temp Pulse Resp B/P (MAP) Pulse Ox O2 Delivery O2 Flow Rate FiO2 05/08/19 04:16 153/84 05/08/19 04:00 97.2 94 20 153/84 (107) 96 05/08/19 00:00 97.7 94 20 157/97 (117) 96 05/07/19 21:00 Room Air 05/07/19 20:00 97.7 91 19 149/91 (110) 94 05/07/19 16:00 97.3 95 20 130/88 (102) 98 05/07/19 15:02 Room Air 05/07/19 12:00 97.5 85 19 149/90 (109) 98 05/07/19 11:05 166/103 05/07/19 09:00 Room Air 05/07/19 08:00 97.3 95 18 166/103 (124) 94 Intake and Output 05/07/19 05/08/19 19:00 07:00 Intake Total 940.0 ml 320.0 ml Balance 940.0 ml 320.0 ml Intake Oral 520 ml IV Total 420.0 ml 320.0 ml # Voids 3 # Bowel Movements 9 Laboratory Tests 05/07/19 19:58: Vancomycin Level Trough 16.8H Height (Feet): 5 Height (Inches): 7.00 Weight (Pounds): 114 General Appearance: no apparent distress EENT: normal ENT inspection Cardiovascular: normal rate Respiratory/Chest: decreased breath sounds Abdomen: normal bowel sounds, non tender, soft Extremities: non-tender Devin Ortiz MD May 08, 2019 05:56
--- NOTE | 2019-05-08 06:00 | NUR ---
NURSE NOTES: Provided proper incontinence care throughout the shift. Will continue to monitor.
--- NOTE | 2019-05-08 07:10 | NUR ---
NURSE NOTES: Handoff received from Minsu,RN. Patient received awake and alert to person, being fed breakfast by HEALTH INFORMATION TECH. Patient is 1:1 feeder and is in bilateral wrist restraints. Patient on room air, no acute signs of distress noted. Patient IV is running prescribed fluids. Bed in the low and locked position with call light within reach. patient is high fall risk, endorsed to other staff to keep an extra eye on patient to help reduce the risk of patient falling. Informed that patient occasionally is able to get out of restraints, bed alarm is on. will continue to monitor patient.
--- NOTE | 2019-05-08 07:25 | NUR ---
HAND-OFF: Report given to YAMEL Joyner. Plan of care endorsed.
[2019-05-08 08:04] LABS: BASOPHILS % (AUTO) 0.6 % (0.0-2.0); EOSINOPHILS % (AUTO) 7.7 % (0.0-3.0); HEMATOCRIT 32.5 % (42.0-52.0); HEMOGLOBIN 10.5 G/DL (14.2-18.0); LYMPHOCYTES % (AUTO) 16.4 % (20.0-45.0); MEAN CORPUSCULAR VOLUME 81 FL (80-99); MONOCYTES % (AUTO) 9.3 % (1.0-10.0); NEUTROPHILS % (AUTO) 66.2 % (45.0-75.0); PLATELET COUNT 490 K/UL (150-450); WHITE BLOOD COUNT 8.6 K/UL (4.8-10.8)
[2019-05-08 08:15] LABS: ANION GAP 10 mmol/L (5-15); BLOOD UREA NITROGEN 7 mg/dL (7-18); CALCIUM 8.1 MG/DL (8.5-10.1); CARBON DIOXIDE 24 MMOL/L (21-32); CHLORIDE 110 MMOL/L (98-107); CREATININE 1.1 MG/DL (0.55-1.30); POTASSIUM 3.8 MMOL/L (3.5-5.1); SODIUM 144 MMOL/L (136-145)
[2019-05-08] MEDS: Bisacodyl EC 5mg tab ORAL SCH (09:00)
[2019-05-08] MEDS: Tamsulosin 0.4mg cap ORAL SCH (10:01)
[2019-05-08] MEDS: Vancomycin 500mg/D5W 110ml IVPB SCH ×4 (10:02→20:48)
[2019-05-08] MEDS: Ascorbic Acid 500mg tab ORAL SCH ×2 (10:02→18:14)
--- NOTE | 2019-05-08 13:48 | Surgery Progress Note ---
Surgery Progress Note Subjective Additional Comments no acute events Objective Last 24 Hour Vital Signs Date Time Temp Pulse Resp B/P (MAP) Pulse Ox O2 Delivery O2 Flow Rate FiO2 05/08/19 12:00 97.8 104 18 131/93 (106) 96 05/08/19 09:00 Room Air 05/08/19 08:00 97.5 94 18 126/69 (88) 94 05/08/19 04:16 153/84 05/08/19 04:00 97.2 94 20 153/84 (107) 96 05/08/19 00:00 97.7 94 20 157/97 (117) 96 05/07/19 21:00 Room Air 05/07/19 20:00 97.7 91 19 149/91 (110) 94 05/07/19 16:00 97.3 95 20 130/88 (102) 98 05/07/19 15:02 Room Air I&O Intake and Output 05/07/19 05/08/19 19:00 07:00 Intake Total 940.0 ml 927.5 ml Balance 940.0 ml 927.5 ml Intake Oral 520 ml 480 ml IV Total 420.0 ml 447.5 ml # Voids 3 3 # Bowel Movements 9 2 Dressing: other Wound: other Drains: other Cardiovascular: RSR Respiratory: decreased breath sounds Abdomen: soft, present bowel sounds Extremities: no cyanosis Laboratory Tests Test 05/07/19 19:58 05/08/19 06:35 Vancomycin Level Trough 16.8 ug/mL (5.0-12.0) H White Blood Count 8.6 K/UL (4.8-10.8) Red Blood Count 4.00 M/UL (4.70-6.10) L Hemoglobin 10.5 G/DL (14.2-18.0) L Hematocrit 32.5 % (42.0-52.0) L Mean Corpuscular Volume 81 FL (80-99) Mean Corpuscular Hemoglobin 26.3 PG (27.0-31.0) L Mean Corpuscular Hemoglobin Concent 32.3 G/DL (32.0-36.0) Red Cell Distribution Width 16.0 % (11.6-14.8) H Platelet Count 490 K/UL (150-450) H Mean Platelet Volume 5.3 FL (6.5-10.1) L Neutrophils (%) (Auto) 66.2 % (45.0-75.0) Lymphocytes (%) (Auto) 16.4 % (20.0-45.0) L Monocytes (%) (Auto) 9.3 % (1.0-10.0) Eosinophils (%) (Auto) 7.7 % (0.0-3.0) H Basophils (%) (Auto) 0.6 % (0.0-2.0) Sodium Level 144 MMOL/L (136-145) Potassium Level 3.8 MMOL/L (3.5-5.1) Chloride Level 110 MMOL/L (98-107) H Carbon Dioxide Level 24 MMOL/L (21-32) Anion Gap 10 mmol/L (5-15) Blood Urea Nitrogen 7 mg/dL (7-18) Creatinine 1.1 MG/DL (0.55-1.30) Estimat Glomerular Filtration Rate > 60 mL/min (>60) Glucose Level 93 MG/DL (74-106) Calcium Level 8.1 MG/DL (8.5-10.1) L Plan Problems: (1) Malnutrition Assessment & Plan: DAILY ESTIMATED NEEDS: Needs based on Underweight, wounds 52.7kg 30-35 kcals/kg 7534-0802 total kcals 1.25-1.5 g protein/kg 66-79 g total protein 25-30 mL/kg 1593-2228 total fluid mLs NUTRITION DIAGNOSIS: Increased kcal and pro needs r/t wound healing and underweight status as evidenced by pt w/ unstageable wound @ R shoulder and resolving pressure injury @ L hip. BMI underweight per guidelines, @73% of [place] Body Weight w/ generalized moderate to severe wasting. CURRENT DIET: Soft puree/ NTL PO DIET RECOMMENDATIONS: Regular diet/ texture per ACTUARIAL DIRECTOR ADDITIONAL RECOMMENDATIONS: 1) Rec to obtain a Calibrated bed scale wt 2) Wound care: add MVI x 1 and ViT C 250mg BID Gilmer 1pkt BID 3) Ensure enlive once daily to ensure needs are met (350kcal/20g prot per bottle) 4) ACTUARIAL DIRECTOR eval for appropriate texture 5) HOLD STOOL SOFTENERS/LAXATIVES: + diarrhea (2) Decubitus skin ulcer Assessment & Plan: :Pt presented on admission with an Unstageable pressure injury R shoulder . Base of wound has 100% slough (L)0.4cm x (W)0.5cm with surrounding indurated and erythematous borders.(L)3cm x (W)3cm. Resolving pressure injury L hip. Non-blanching erythema noted with pink epithelial margins.No evidence of Skin breakdown to sacrum/buttocks. Pt noted to have maculo/papular rash to upper back ,R flank and bilat lower ext. Few scaled rashes noted on both lower ext. Pt confirmed lower ext are itchy but denied itching back. Stable dry eschar noted to lateral L 1st metatarsal dorsal aspects of L 1st,2nd 3rd and 5th metatarsals,R 1st 4th and 5th metatarsals. Both heels are soft but blanchable. No evidence of other skin breakdown noted. Tx.Plan: Cleanse wound R shoulder with Saline. Apply Therahoney.Apply Cavilon Skin Barrier periwound. Cover with Optifoam drsg. Change every 3 days and prn. Apply Moisture Barrier Paste to L hip. Cover with Optifoam drsg. Change every 3 days and prn. Apply Moisture Barrier Paste to Sacrum and R hip. Change every 3 days and prn. Apply Cavilon Skin Barrier to both heels. Cover each heel with Optifoam drsg. Change every 7 days and prn. Reposition at least every 2hours or as tolerated. Off-load heels with pillow. (3) Abscess of left shoulder (4) Diarrhea (5) Abdominal distension (gaseous) Assessment & Plan: Findings: Small bowel loops are gas filled, borderline distended. Gas is seen within the colon. No masses or unusual calcifications. Absence of bowel gas within the pelvis may indicate a distended bladder Impression: Borderline gaseous small bowel distention, appearance nonspecific, could represent ileus or very early small bowel obstruction. Consider follow-up radiographs as indicated KUB revealed and no specific findings. Abdominal exam improving. Passing flatus. Diet as tolerated. Billy Horn May 08, 2019 13:48
[2019-05-08] MEDS ORDERED: NS 275ml ONE (13:50)
--- NOTE | 2019-05-08 15:18 | Pulmonology Progress Note ---
Assessment/Plan Assessment/Plan Pulmonary Progress Note Assessment/Plan: anemia possible sepsis hypotension diarrhea tox met encephalopathy psych history decubitus PLAN psych follow up Surgery following gi follow up and await final results care reviewed stabilize and dc planning once cleared and no further work up planned impression, plan, and exam edited and reviewed in detail care discussed with RN Subjective ROS Limited/Unobtainable: Yes Allergies: Coded Allergies: AZITHROMYCIN (Verified Allergy, Unknown, 04/30/19) Subjective care noted sp EGD and colonscopy remains altered and agitated Objective Vital Signs Noted Laboratory Tests Noted Imaging: Noted: Height (Feet): 5 Height (Inches): 7.00 Weight (Pounds): 114 Objective WDWN, chronically ill appearing NAD clear breath sounds bilaterally [id number] without MRG NABS nontender no HSM no CCE nonfocal reduced LOC Subjective ROS Limited/Unobtainable: No Allergies: Coded Allergies: AZITHROMYCIN (Verified Allergy, Unknown, 04/30/19) Objective Last 24 Hour Vital Signs Date Time Temp Pulse Resp B/P (MAP) Pulse Ox O2 Delivery O2 Flow Rate FiO2 05/08/19 12:00 97.8 104 18 131/93 (106) 96 05/08/19 09:00 Room Air 05/08/19 08:00 97.5 94 18 126/69 (88) 94 05/08/19 04:16 153/84 05/08/19 04:00 97.2 94 20 153/84 (107) 96 05/08/19 00:00 97.7 94 20 157/97 (117) 96 05/07/19 21:00 Room Air 05/07/19 20:00 97.7 91 19 149/91 (110) 94 05/07/19 16:00 97.3 95 20 130/88 (102) 98 Intake and Output 05/07/19 05/08/19 19:00 07:00 Intake Total 940.0 ml 927.5 ml Balance 940.0 ml 927.5 ml Intake Oral 520 ml 480 ml IV Total 420.0 ml 447.5 ml # Voids 3 3 # Bowel Movements 9 2 Laboratory Tests 05/07/19 19:58: Vancomycin Level Trough 16.8H 05/08/19 06:35: White Blood Count 8.6, Red Blood Count 4.00L, Hemoglobin 10.5L, Hematocrit 32.5L , Mean Corpuscular Volume 81, Mean Corpuscular Hemoglobin 26.3L, Mean Corpuscular Hemoglobin Concent 32.3, Red Cell Distribution Width 16.0H, Platelet Count 490H, Mean Platelet Volume 5.3L, Neutrophils (%) (Auto) 66.2, Lymphocytes (%) (Auto) 16.4L, Monocytes (%) (Auto) 9.3, Eosinophils (%) (Auto) 7.7H, Basophils (%) (Auto) 0.6, Sodium Level 144, Potassium Level 3.8, Chloride Level 110H, Carbon Dioxide Level 24, Anion Gap 10, Blood Urea Nitrogen 7, Creatinine 1.1, Estimat Glomerular Filtration Rate > 60, Glucose Level 93, Calcium Level 8.1L Current Medications Medications (Trade) Dose Ordered Sig/Rachel Route PRN Reason Start Time Stop Time Status Last Admin Dose Admin Acetaminophen (Tylenol) 650 mg Q4H PRN ORAL Mild Pain/Temp > 100.5 05/01/19 08:00 05/31/19 07:59 Al Hydroxide/Mg Hydroxide (Mylanta) 30 ml Q4H PRN ORAL Abdominal cramps 05/01/19 07:15 05/31/19 07:14 Ascorbic Acid (Vitamin C) 250 mg TWICE A DAY ORAL 05/02/19 18:00 06/01/19 17:59 05/08/19 10:02 Bisacodyl (Dulcolax) 10 mg DAILY ORAL 05/01/19 09:00 05/31/19 08:59 05/05/19 09:14 Clonidine HCl (Catapres Tab) 0.1 mg Q4H PRN ORAL For High Blood Pressure 05/07/19 10:45 06/06/19 10:44 05/08/19 04:16 Diphenhydramine HCl (Benadryl) 25 mg Q4H PRN ORAL Itching 05/01/19 07:30 05/31/19 07:29 05/04/19 20:42 Midodrine (Pro-Amatine) 5 mg TWICE A DAY ORAL 05/01/19 09:00 05/31/19 08:59 05/08/19 10:01 Mirtazapine (Remeron) 15 mg BEDTIME ORAL 05/08/19 21:00 06/07/19 20:59 Multivitamins (Multivitamins) 1 tab DAILY ORAL 05/03/19 09:00 06/02/19 08:59 05/08/19 10:01 Pantoprazole (Protonix) 40 mg DAILY ORAL 05/01/19 09:00 05/31/19 08:59 05/08/19 10:01 Risperidone (RisperDAL) 1 mg BID ORAL 05/02/19 14:00 06/01/19 13:59 05/08/19 10:01 Sodium Chloride 1,000 ml @ 100 mls/hr Q10H IV 05/01/19 08:00 05/31/19 07:59 05/07/19 13:56 Tamsulosin HCl (Flomax) 0.4 mg DAILY ORAL 05/01/19 09:00 05/31/19 08:59 05/08/19 10:01 Vancomycin HCl (Vanco rx to dose) 1 ea DAILY PRN MISC Per rx protocol 05/01/19 07:15 05/31/19 07:14 Vancomycin HCl 500 mg/Dextrose 110 ml @ 110 mls/hr Q12HR IVPB 05/06/19 09:00 05/11/19 08:59 05/08/19 10:02 Sharif Rosenthal MD May 08, 2019 15:18
--- NOTE | 2019-05-08 17:53 | NUR ---
NURSE NOTES:n Patient's 1600 BP high, rechecked blood pressure as patient has Midodrine prescribed for 1800. Patient BP 150/89 withheld Midodrine.
--- NOTE | 2019-05-08 19:24 | NUR ---
HAND-OFF: Report given to YAMEL Finnegan.
--- NOTE | 2019-05-08 19:31 | NUR ---
NURSE NOTES: Handoff received from YAMEL Joyner. Patient received awake and alert to person. Patient is 1:1 feeder and is in bilateral soft wrist restraints, skin intact underneath. Both IV sites are occluded, not patent. Patient on room air, no acute signs of distress noted. Bed in the low and locked position with call light within reach, bed alarm on zone 2. patient is high fall risk, fall precautions in place, pt in room closest to nursing station, can be observed at the nursing station while charting.. will continue to monitor patient closely
[2019-05-08] MEDS: DiphenhydrAMINE 25mg Tab ORAL PRN (20:45)
[2019-05-09] VITALS: BP 162/100
[2019-05-09 04:00] VITALS: BP 140/93
--- NOTE | 2019-05-09 07:10 | NUR ---
NURSE NOTES:Handoff received from YAMEL Finnegan. Patient received resting in bed, no acute signs of distress noted, patient is on room air. Patient in bilateral soft wrist restraints, IV fluids running at 100ml/hr. Bed in the low and locked position with call light within reach, bed alarm is on as patient is high fall risk. Endorsed to care staff to keep a close eye on patient as he is at increased risk for falls and has been known to get out of restraints. Will provide frequent reality orientation to patient and remind him to use call light for assistance.
[2019-05-09 07:13] LABS: BASOPHILS % (AUTO) 1.1 % (0.0-2.0); EOSINOPHILS % (AUTO) 7.1 % (0.0-3.0); HEMATOCRIT 29.2 % (42.0-52.0); HEMOGLOBIN 9.8 G/DL (14.2-18.0); LYMPHOCYTES % (AUTO) 18.9 % (20.0-45.0); MEAN CORPUSCULAR VOLUME 80 FL (80-99); MONOCYTES % (AUTO) 8.6 % (1.0-10.0); NEUTROPHILS % (AUTO) 64.3 % (45.0-75.0); PLATELET COUNT 445 K/UL (150-450); RED BLOOD COUNT 3.67 M/UL (4.70-6.10); RED CELL DISTRIBUTION WIDTH 16.2 % (11.6-14.8); WHITE BLOOD COUNT 7.9 K/UL (4.8-10.8)
[2019-05-09 07:16] LABS: ANION GAP 3 mmol/L (5-15); BLOOD UREA NITROGEN 6 mg/dL (7-18); CALCIUM 8.4 MG/DL (8.5-10.1); CARBON DIOXIDE 29 MMOL/L (21-32); CHLORIDE 114 MMOL/L (98-107); POTASSIUM 4.4 MMOL/L (3.5-5.1); SODIUM 146 MMOL/L (136-145)
[2019-05-09 08:00] VITALS: BP 152/100
--- NOTE | 2019-05-09 08:01 | NUR ---
HAND-OFF: Report given to YAMEL Joyner
--- NOTE | 2019-05-09 08:21 | General Progress Note ---
Assessment/Plan Assessment/Plan: anemia possible sepsis hypotension diarrhea tox met encephalopathy psych history PLAN psych follow up gi follow up and await final results dc to snf continue as is push pos impression, plan, and exam edited and reviewed in detail care discussed with RN Subjective Allergies: Coded Allergies: AZITHROMYCIN (Verified Allergy, Unknown, 04/30/19) Subjective care noted ischemic colitis remains altered and agitated Objective Last 24 Hour Vital Signs Date Time Temp Pulse Resp B/P (MAP) Pulse Ox O2 Delivery O2 Flow Rate FiO2 05/09/19 04:00 97.5 110 21 140/93 (109) 96 05/09/19 01:28 162/100 05/09/19 00:00 97.3 98 21 162/100 (120) 99 05/08/19 21:00 Room Air 05/08/19 20:45 160/96 (117) 05/08/19 20:45 161/96 05/08/19 20:09 97.2 104 21 161/140 (147) 100 05/08/19 16:00 97.9 107 20 158/98 (118) 98 05/08/19 12:00 97.8 104 18 131/93 (106) 96 05/08/19 09:00 Room Air Intake and Output 05/08/19 05/09/19 19:00 07:00 Intake Total 1080 ml Balance 1080 ml Intake Oral 1080 ml # Voids 6 3 # Bowel Movements 2 4 Laboratory Tests 05/09/19 06:30: White Blood Count 7.9, Red Blood Count 3.67L, Hemoglobin 9.8L, Hematocrit 29.2L , Mean Corpuscular Volume 80, Mean Corpuscular Hemoglobin 26.7L, Mean Corpuscular Hemoglobin Concent 33.4, Red Cell Distribution Width 16.2H, Platelet Count 445, Mean Platelet Volume 5.5L, Neutrophils (%) (Auto) 64.3, Lymphocytes (%) (Auto) 18.9L, Monocytes (%) (Auto) 8.6, Eosinophils (%) (Auto) 7.1H, Basophils (%) (Auto) 1.1, Sodium Level 146H, Potassium Level 4.4, Chloride Level 114H, Carbon Dioxide Level 29, Anion Gap 3L, Blood Urea Nitrogen 6L, Creatinine 1.0, Estimat Glomerular Filtration Rate > 60, Glucose Level 96, Calcium Level 8.4L Height (Feet): 5 Height (Inches): 7.00 Weight (Pounds): 114 Objective WDWN NAD clear breath sounds bilaterally without rhonchi or wheeze [id number] without MRG NABS nontender no HSM no CCE nonfocal reduced LOC Galen Garcia MD May 09, 2019 08:21
--- NOTE | 2019-05-09 08:30 | NUR ---
NURSE NOTES: Patient had right arm out of restraints. Entered patient room to find that patient had removed his IV. Will reinsert after passing my 0900 medications.
[2019-05-09] MEDS: Bisacodyl EC 5mg tab ORAL SCH (10:03)
[2019-05-09] MEDS: Tamsulosin 0.4mg cap ORAL SCH (10:18)
[2019-05-09] MEDS: Ascorbic Acid 500mg tab ORAL SCH (10:18)
[2019-05-09] MEDS: Vancomycin 500mg/D5W 110ml IVPB SCH ×2 (10:49)
[2019-05-09 12:00] VITALS: BP 163/112
--- NOTE | 2019-05-09 12:43 | NUR ---
CASE MANAGEMENT:DISCHARGE PLAN PATIENT HAS BEEN REFERRED BACK TO [facility] P: [phone] F: [phone] ALL CLINICALS HAVE BEEN FAXED Addendum: 05/09/19 at 1406 by ANAI ELLER LVN LVN FOLLOW OP TO [facility]. S/W BRUCE AND CONFIRMED PATIENT ACCEPTED TO RETURN TO ROOM [address] [place] [address] WITH [facility] INFORMED AND AWARE OF PATIENTS RETURN TO [facility] [phone] [facility] TRANSPORTATION SCHEDULED WITH [facility] @ EST 8093 WITH AN ETA @ 1500 PM 4E [employer] CLAUDETTE AWARE AND WILL INFORM YAMEL CALLEJAS
[2019-05-09 13:13] VITALS: BP 163/112
--- NOTE | 2019-05-09 13:21 | Surgery Progress Note ---
Surgery Progress Note Subjective Symptoms: improved, tolerating diet, voiding well, passing flatus, BM Objective Last 24 Hour Vital Signs Date Time Temp Pulse Resp B/P (MAP) Pulse Ox O2 Delivery O2 Flow Rate FiO2 05/09/19 13:13 163/112 05/09/19 12:00 98.6 101 20 163/112 (129) 97 05/09/19 09:00 Room Air 05/09/19 08:00 98.8 101 21 152/100 (117) 99 05/09/19 04:00 97.5 110 21 140/93 (109) 96 05/09/19 01:28 162/100 05/09/19 00:00 97.3 98 21 162/100 (120) 99 05/08/19 21:00 Room Air 05/08/19 20:45 160/96 (117) 05/08/19 20:45 161/96 05/08/19 20:09 97.2 104 21 161/140 (147) 100 05/08/19 16:00 97.9 107 20 158/98 (118) 98 I&O Intake and Output 05/08/19 05/09/19 19:00 07:00 Intake Total 1080 ml Balance 1080 ml Intake Oral 1080 ml # Voids 6 3 # Bowel Movements 2 4 Dressing: other Wound: other Drains: other Cardiovascular: RSR Respiratory: decreased breath sounds Abdomen: soft, present bowel sounds Extremities: no cyanosis Laboratory Tests Test 05/09/19 06:30 White Blood Count 7.9 K/UL (4.8-10.8) Red Blood Count 3.67 M/UL (4.70-6.10) L Hemoglobin 9.8 G/DL (14.2-18.0) L Hematocrit 29.2 % (42.0-52.0) L Mean Corpuscular Volume 80 FL (80-99) Mean Corpuscular Hemoglobin 26.7 PG (27.0-31.0) L Mean Corpuscular Hemoglobin Concent 33.4 G/DL (32.0-36.0) Red Cell Distribution Width 16.2 % (11.6-14.8) H Platelet Count 445 K/UL (150-450) Mean Platelet Volume 5.5 FL (6.5-10.1) L Neutrophils (%) (Auto) 64.3 % (45.0-75.0) Lymphocytes (%) (Auto) 18.9 % (20.0-45.0) L Monocytes (%) (Auto) 8.6 % (1.0-10.0) Eosinophils (%) (Auto) 7.1 % (0.0-3.0) H Basophils (%) (Auto) 1.1 % (0.0-2.0) Sodium Level 146 MMOL/L (136-145) H Potassium Level 4.4 MMOL/L (3.5-5.1) Chloride Level 114 MMOL/L (98-107) H Carbon Dioxide Level 29 MMOL/L (21-32) Anion Gap 3 mmol/L (5-15) L Blood Urea Nitrogen 6 mg/dL (7-18) L Creatinine 1.0 MG/DL (0.55-1.30) Estimat Glomerular Filtration Rate > 60 mL/min (>60) Glucose Level 96 MG/DL (74-106) Calcium Level 8.4 MG/DL (8.5-10.1) L Plan Problems: (1) Malnutrition Assessment & Plan: DAILY ESTIMATED NEEDS: Needs based on Underweight, wounds 52.7kg 30-35 kcals/kg 3047-8770 total kcals 1.25-1.5 g protein/kg 66-79 g total protein 25-30 mL/kg 2987-9739 total fluid mLs NUTRITION DIAGNOSIS: Increased kcal and pro needs r/t wound healing and underweight status as evidenced by pt w/ unstageable wound @ R shoulder and resolving pressure injury @ L hip. BMI underweight per guidelines, @73% of [place] Body Weight w/ generalized moderate to severe wasting. CURRENT DIET: Soft puree/ NTL PO DIET RECOMMENDATIONS: Regular diet/ texture per TOBACCO STEMMER ADDITIONAL RECOMMENDATIONS: 1) Rec to obtain a Calibrated bed scale wt 2) Wound care: add MVI x 1 and ViT C 250mg BID Gilmer 1pkt BID 3) Ensure enlive once daily to ensure needs are met (350kcal/20g prot per bottle) 4) TOBACCO STEMMER eval for appropriate texture 5) HOLD STOOL SOFTENERS/LAXATIVES: + diarrhea (2) Decubitus skin ulcer Assessment & Plan: :Pt presented on admission with an Unstageable pressure injury R shoulder . Base of wound has 100% slough (L)0.4cm x (W)0.5cm with surrounding indurated and erythematous borders.(L)3cm x (W)3cm. Resolving pressure injury L hip. Non-blanching erythema noted with pink epithelial margins.No evidence of Skin breakdown to sacrum/buttocks. Pt noted to have maculo/papular rash to upper back ,R flank and bilat lower ext. Few scaled rashes noted on both lower ext. Pt confirmed lower ext are itchy but denied itching back. Stable dry eschar noted to lateral L 1st metatarsal dorsal aspects of L 1st,2nd 3rd and 5th metatarsals,R 1st 4th and 5th metatarsals. Both heels are soft but blanchable. No evidence of other skin breakdown noted. Tx.Plan: Cleanse wound R shoulder with Saline. Apply Therahoney.Apply Cavilon Skin Barrier periwound. Cover with Optifoam drsg. Change every 3 days and prn. Apply Moisture Barrier Paste to L hip. Cover with Optifoam drsg. Change every 3 days and prn. Apply Moisture Barrier Paste to Sacrum and R hip. Change every 3 days and prn. Apply Cavilon Skin Barrier to both heels. Cover each heel with Optifoam drsg. Change every 7 days and prn. Reposition at least every 2hours or as tolerated. Off-load heels with pillow. (3) Abscess of left shoulder (4) Diarrhea (5) Abdominal distension (gaseous) Assessment & Plan: Findings: Small bowel loops are gas filled, borderline distended. Gas is seen within the colon. No masses or unusual calcifications. Absence of bowel gas within the pelvis may indicate a distended bladder Impression: Borderline gaseous small bowel distention, appearance nonspecific, could represent ileus or very early small bowel obstruction. Consider follow-up radiographs as indicated KUB revealed and no specific findings. Abdominal exam improving. Passing flatus. Diet as tolerated. Billy Horn May 09, 2019 13:21
[2019-05-09] MEDS ORDERED: MYLANTA30 M1 ORAL (14:27)
[2019-05-09] MEDS ORDERED: CLONIDINE HCL0.1 MG PO (14:28)
[2019-05-09] MEDS ORDERED: CLOTRIMAZOLE15 GM TOPIC (14:29)
[2019-05-09] MEDS ORDERED: MIRTAZAPINE15 M3 ORAL (14:30)
[2019-05-09] MEDS ORDERED: MULTIVITAMINS1 EAC2 ORAL (14:33)
[2019-05-09] MEDS ORDERED: PANTOPRAZOLE SO40 MG ORAL (14:34)
[2019-05-09] MEDS ORDERED: RISPERDAL1 MG PO (14:35)
[2019-05-09] MEDS ORDERED: FLOMAX0.4 MG ORAL (14:36)
[2019-05-09] MEDS ORDERED: VANCOMYCIN500 MG/100 IV (14:37)
--- NOTE | 2019-05-09 15:12 | NUR ---
NURSE NOTES: Called [facility] and gave report to Cj.
--- NOTE | 2019-05-09 15:46 | NUR ---
NURSE NOTES:Patient left stable with EMS, belongings list not signed as patient unable to sign, belongings left with patient. IV site removed, slight bleeding noted, applied pressure until bleeding stopped no hematoma noted. ID bracelet removed. Patient left with discharge instructions which were given to EMS.
--- NOTE | 2019-05-09 21:39 | General Progress Note ---
Assessment/Plan Assessment/Plan: Assessment Anemia Presumed ischemic L sided colitis (path pending fungal buttock rash CPS COPD Recommendations follow labs PPI lotrimin cream to buttocks f/u path push po avoid dehydration Subjective Allergies: Coded Allergies: AZITHROMYCIN (Verified Allergy, Unknown, 04/30/19) Subjective confused NAD d/w RN eating well rash on buttocks Objective Last 24 Hour Vital Signs Date Time Temp Pulse Resp B/P (MAP) Pulse Ox O2 Delivery O2 Flow Rate FiO2 05/09/19 13:13 163/112 05/09/19 12:00 98.6 101 20 163/112 (129) 97 05/09/19 09:00 Room Air 05/09/19 08:00 98.8 101 21 152/100 (117) 99 05/09/19 04:00 97.5 110 21 140/93 (109) 96 05/09/19 01:28 162/100 05/09/19 00:00 97.3 98 21 162/100 (120) 99 Intake and Output 05/08/19 05/09/19 19:00 07:00 Intake Total 1080 ml Balance 1080 ml Intake Oral 1080 ml # Voids 6 3 # Bowel Movements 2 4 Laboratory Tests 05/09/19 06:30: White Blood Count 7.9, Red Blood Count 3.67L, Hemoglobin 9.8L, Hematocrit 29.2L , Mean Corpuscular Volume 80, Mean Corpuscular Hemoglobin 26.7L, Mean Corpuscular Hemoglobin Concent 33.4, Red Cell Distribution Width 16.2H, Platelet Count 445, Mean Platelet Volume 5.5L, Neutrophils (%) (Auto) 64.3, Lymphocytes (%) (Auto) 18.9L, Monocytes (%) (Auto) 8.6, Eosinophils (%) (Auto) 7.1H, Basophils (%) (Auto) 1.1, Sodium Level 146H, Potassium Level 4.4, Chloride Level 114H, Carbon Dioxide Level 29, Anion Gap 3L, Blood Urea Nitrogen 6L, Creatinine 1.0, Estimat Glomerular Filtration Rate > 60, Glucose Level 96, Calcium Level 8.4L Height (Feet): 5 Height (Inches): 7.00 Weight (Pounds): 114 Objective Thin WM confused NCAT supple CTA RRR abd soft ND NT no edema OBS Claire Boles MD May 09, 2019 21:39
--- NOTE | 2019-05-10 07:51 | Discharge Summary ---
Discharge Summary Discharge Summary _ DATE OF ADMISSION: 04/30/2019 DATE OF DISCHARGE: 05/09/2019 DISCHARGED BY: Dr. Garcia REASON FOR ADMISSION: 73 years old male with past medical history of COPD, BPH, dementia, paranoid schizophrenia, noted to have foul-smelling diarrhea and was extremely agitated. Patient was sent from the group home facility for evaluation . On evaluation patient was mildly tachycardic , otherwise vital signs were stable. Laboratory work-up revealed no leukocytosis ,hemoglobin 7.5 ,hematocrit 25.8, platelet count 609. Urinalysis revealed +2 protein , no evidence of urinary tract infection. Potassium 3.3. Stable other electrolytes and renal parameters. Glucose 142. Stable LFT . Troponin negative . Urine toxicology screen was negative. Serum alcohol <3. EKG reveals sinus tachycardia , no acute ischemic changes . Chest x-ray revealed no obvious focal consolidation, left hilar prominence noted with some streaky atelectasis. In emergency department patient received a small dose of Ativan . Patient subsequently admitted for further management. CONSULTANTS: GI specialist Dr. Arias surgery Dr. Horn psychiatrist [facility] COURSE: Patient admitted to medical surgical floor and started on IV fluids and empiric antibiotics. Later during the day patient developed fever. Patient started on the IV fluids . Patient received 2 units of packed red blood cells. GI specialist followed. Stool for C. difficile was negative , stool culture was negative. Blood cultures were negative. No leukocytosis , initial fever resolved. Hemoglobin and hematocrit were closely monitored. GI prophylaxis provided. Calorie count implemented. Diet texture provided as per speech therapist recommendation after bedside evaluation was completed. Aspiration precaution maintained. Abdominal x-ray revealed borderline gaseous small bowel distention with nonspecific appearance, possibly representing ileus or very early small bowel obstruction. Surgeon followed. Abdominal exam was improving. Patient was passing flatus. No surgical intervention was necessary. Surgeon recommended continue diet as tolerated. Patient undergone on EGD with biopsy and colonoscopy which revealed probable ischemic colitis. At the time of this dictation biopsy results still pending . GI specialist recommended aggressive IV hydration and consider tube feeding in the future, if patient continues to have poor oral intake. GI specialist recommended to avoid dehydration Protein supplements implemented in plan of care as per registered appraiser recommendation Antifungal cream provided to rash area. Hemodynamic status was closely monitored. Initial hypotension resolved. Patient presented with un-stageable pressure injury to the right shoulder. Wound care provided asper surgeon recommendation. Continue wound care at the facility. Hemoglobin and hematocrit were closely monitored, prior to discharge hemoglobin 9.8, hematocrit 29.2. Renal parameters and electrolytes were closely monitored. Electrolytes corrected as needed. Nephrotoxics were avoided. Psychiatry closely followed. Psychiatric medication regimen was optimized. Patient clinically stabilized and was ready for transfer to group home facility for continuation of care FINAL DIAGNOSES: Possible sepsis Dehydration Anemia Status post EGD and colonoscopy Presumed ischemic left-sided colitis/pathology pending Diarrhea Malnutrition Fever COPD Hypotension Toxic metabolic encephalopathy Protein calorie malnutrition Schizophrenia Dementia with behavioral disturbances Fungal buttock rash Decubitus skin ulcer right shoulder unstageable present on admission DISCHARGE MEDICATIONS: See Medication Reconciliation list. DISCHARGE INSTRUCTIONS: Patient was discharged to the group home facility. Follow up with medical doctor at the facility. I have been assigned to dictate discharge summary for this account. I was not involved in the patient's management. Kitty Stone NP May 10, 2019 07:50
--- NOTE | 2019-05-11 04:15 | Progress Note ---
DATE: 05/09/2019 SUBJECTIVE: The patient is calm, manageable. No behavior issues noted. The patient has decreased agitation. The patient is confused, disoriented. MENTAL STATUS EXAMINATION: The patient is asleep, arousable, confused. Mood is anxious. Affect is flat. Thought process, there is a paucity of thought content. Thought content, no suicidal or homicidal ideation. Cognition is impaired. Insight and judgment is impaired. ASSESSMENT: Dementia with behavior disturbance. PLAN: 1. Continue current psychotropic medications. 2. Provide the patient with reality orientation and supportive therapy. Jermaine Donaldson M.D. DR: BIJAL JOB#: [id number] CC:
--- NOTE | 2019-05-11 10:30 | Progress Note ---
SUBJECTIVE: The patient is in bed, still continues to yell and scream, more manageable than previous encounter on bilateral soft restraints. MENTAL STATUS EXAMINATION: The patient is alert and oriented times self and place. Mood is confused. Affect is constricted, congruent with mood. Thought process, there is a paucity of thought content. Thought content, no suicidal or homicidal ideation. Cognition is impaired. Insight and judgment is impaired. ASSESSMENT: Stable. PLAN: 1. We will continue current medications. 2. Provide the patient with reality orientation and supportive therapy. Jermaine Donaldson M.D. DR: Rosibel JOB#: [id number] CC: VIANNEY
== END 2019-05-09 15:51 | DRG 871 ==
LOC: EDBD 15:23 → EMR 16:12 → 4E 18:13 → EDBEDREQ 23:24 → 4E 05-01 03:39
PROC: 30233N1 Transfusion of Nonautologous Red Blood Cells into Peripheral Vein, Percutaneous Approach (ICD-10-PCS; 2019-04-30)
PROC: 0DBG8ZX Excision of Left Large Intestine, Via Natural or Artificial Opening Endoscopic, Diagnostic (ICD-10-PCS; principal; 2019-05-06 07:20)
PROC: 0DBF8ZX Excision of Right Large Intestine, Via Natural or Artificial Opening Endoscopic, Diagnostic (ICD-10-PCS; principal; 2019-05-06 07:20)
PROC: 0DB98ZX Excision of Duodenum, Via Natural or Artificial Opening Endoscopic, Diagnostic (ICD-10-PCS; principal; 2019-05-06 07:20)
DX: A41.9 Sepsis, unspecified organism (principal); G92 Toxic encephalopathy; E46 Unspecified protein-calorie malnutrition; Z68.1 Body mass index [BMI] 19.9 or less, adult; F20.0 Paranoid schizophrenia; F03.91 Unspecified dementia, unspecified severity, with behavioral disturbance; K55.9 Vascular disorder of intestine, unspecified; K63.3 Ulcer of intestine; D64.9 Anemia, unspecified; R19.7 Diarrhea, unspecified; Z88.1 Allergy status to other antibiotic agents; I10 Essential (primary) hypertension; E86.0 Dehydration; J44.9 Chronic obstructive pulmonary disease, unspecified; F20.9 Schizophrenia, unspecified; B36.8 Other specified superficial mycoses; L89.890 Pressure ulcer of other site, unstageable; D47.3 Essential (hemorrhagic) thrombocythemia
CPT/HCPCS: 36415; 71045; 74018; 80048; 80053; 80202; 80307; 81003; 82150; 82550; 83605; 83690; 84484; 85007; 85025; 85610; 85651; 85730; 86140; 86710; 86850; 86900; 86901; 86920; 87040; 87045; 87081; 87324; 93005; 94003; 94150; 94664; 96361; 96365; 96375; 96376; 99291; G0480; J2370; J3490; J7030; J8499

== ENCOUNTER 2019-05-20 21:53 | Inpatient (IN) | payer MEDICARE, MEDICAID ==
[~2019-05-20] VITALS: Ht 180.3 cm; Wt 52.2 kg
[~2019-05-20 21:53] MED LIST: ACETAMINOPHEN120 MG PO; ACETAMINOPHEN325 M1 ORAL; ALBUTEROL2.5 MG/3 M INH; BISACODYL10 M1 RC; BISACODYL5 MG ORAL; BISACODYL5 MG RECTAL; CLONIDINE HCL0.1 MG PO; CLOTRIMAZOLE15 GM TOPIC; DIPHENHYDRAMINE25 M1 ORAL; FAMOTIDINE20 MG ORAL; FLOMAX0.4 MG ORAL; FLONASE ALLERG9.9 ML NS; IMODIUM A-1 MG/7.5 M PO; LOPERAMIDE2 M1 PO; LOPERAMIDE2 MG PO; MELATONIN3 MG ORAL; MIDODRINE HCL5 MG ORAL; MIRTAZAPINE15 M3 ORAL; MULTIVITAMINS1 EAC2 ORAL; MYLANTA30 M1 ORAL; PANTOPRAZOLE SO40 MG ORAL; PILOCARPINE HCL MC; RISPERDAL1 MG PO; SALAGEN5 MG PO; SALAGEN7.5 MG PO; SEROQUEL100 MG ORAL; SEROQUEL25 MG ORAL; TYLENOL325 M1 PO; VANCOMYCIN500 MG/100 IV
--- NOTE | 2019-05-20 22:30 | NUR ---
ED Nurse Note: RECIEVED PT BIBA FROM [facility] C/O MECHANICAL FALL AND INJURY TO BACK OF HEAD, UNSURE IF K.O. PT ALSO HAS ABRASION TO RIGHT ELBOW AREA WITH MILD SKIN ABRAISION, PT IS AWAKE AND ALERT, PT HAS SCHIZOPHRENIA AND BEHAVIORAL ISSUES, PT DOES FOLLOW MY COMMANDS AND COOPERATES, PT DENIES PAIN, IMMEDIATELY PLACED ON MONITORING, PT NOTED WITH GENERALIZED RASH ON ENTIRE BODY, INFORMED BY MD IS CHRONIC, PT PLACED ON CARDIAC MONITORING, WILLR ESUME CARE ORDERED AND CLOSELY MONITOR.
--- NOTE | 2019-05-20 22:52 | Diagnostic Imaging Report ---
EXAM: CT Head Without Intravenous Contrast CLINICAL HISTORY: INJ TECHNIQUE: Axial computed tomography images of the head/brain without intravenous contrast. CTDI is 53 mGy and DLP is 1081 mGy-cm. One or more of the following dose reduction techniques were used: automated exposure control, adjustment of the mA and/or kV according to patient size, use of iterative reconstruction technique. COMPARISON: No relevant prior studies available. FINDINGS: Brain: No hemorrhage, herniation, or mass effect. Chronic microvascular ischemic changes. Ventricles: No hydrocephalus. Age related cerebral volume loss. Bones/joints: Unremarkable. Soft tissues: Unremarkable. Sinuses: Unremarkable. Mastoid air cells: Severe bilateral mastoid effusions. IMPRESSION: No acute hemorrhage, hydrocephalus, or mass effect. Severe bilateral mastoid effusions.
[2019-05-20] MEDS ORDERED: Thiamine HCl 100 MG in D5W 55 ML IVPB ONE (23:30)
--- NOTE | 2019-05-20 23:40 | Emergency Room Report ---
History of Present Illness General Chief Complaint: Multiple Trauma/Fall Source: EMS Present Illness HPI Patient is a 73-year-old male brought in by basic ambulance from facility. Patient had been noted to have a recent fall from standing. He reported having pain to the right elbow as well as to his head. He had been noted to be ambulatory after the fall. He reports having some pain to his head. He also reports having some pain to his elbow. Denies any other locations of pain at this time. Prior history of psychiatric disease as well as encephalopathy. Allergies: Coded Allergies: AZITHROMYCIN (Verified Allergy, Unknown, 04/30/19) Patient History Past Medical History: see triage record Reviewed Nursing Documentation: PMH: Agreed; PSxH: Agreed Nursing Documentation-PMH Hx Cardiac Problems: Yes Hx Hypertension: Yes Hx COPD: Yes Hx Diabetes: Yes Hx Cancer: No Hx Gastrointestinal Problems: No Hx Neurological Problems: Yes - SENILE DEGENERATION OF THE BRAIN; CERBRAL INFARCTION Hx Transient Ischemic Attacks: Yes Hx Dementia: Yes - VASCULAR DEMENTIA Review of Systems All Other Systems: limited - Limited by poor historian Physical Exam Vital Signs Date Time Temp Pulse Resp B/P (MAP) Pulse Ox O2 Delivery O2 Flow Rate FiO2 05/20/19 21:54 97.9 102 18 101/56 (71) Sp02 EP Interpretation: reviewed, normal General Appearance: alert, non-toxic, Chronically Ill Head: atraumatic Eyes: bilateral eye PERRL ENT: normal ENT inspection, hearing grossly normal, normal voice Neck: normal inspection, full range of motion, supple, no bony tend Respiratory: normal inspection, lungs clear, normal breath sounds, no respiratory distress, no retraction, no wheezing Cardiovascular #1: regular rate, rhythm, no edema Gastrointestinal: normal inspection, normal bowel sounds, non tender, soft, no guarding, no hernia Genitourinary: no CVA tenderness Musculoskeletal: normal inspection, back normal, normal range of motion Neurologic: alert, motor strength/tone normal, level vial curvature gauger III-XII nml as tested, responsive, speech normal, normal inspection, other - Generalized atrophy Psychiatric: judgement/insight normal, anxious Skin: other - superficial laceration to right elbow Medical Decision Making Diagnostic Impression: Primary Impression: Fall Additional Impressions: Malnutrition Contusion of right elbow Anemia ER Course Patient is a 73-year-old male who presented after fall at nursing facility. Patient had differential diagnosis include was not limited to head injury, hip fracture, syncopal episode among others. Because of complexity of patient's case laboratory tests and imaging studies were ordered. CT imaging of the head was ordered read by radiology showed atrophic changes without evident acute intracranial pathology. Laboratory testing showed some evidence of anemia. Electrolytes panel were otherwise unremarkable.I contacted the patient's nursing facility. Patient was noted to have some recent fall. Per staff patient was to have psychiatric consult. Dr. Galen Garcia was contacted for inpatient management due to primary care. Labs Test 05/21/19 00:15 White Blood Count 7.2 K/UL (4.8-10.8) Red Blood Count 3.38 M/UL (4.70-6.10) Hemoglobin 8.8 G/DL (14.2-18.0) Hematocrit 27.8 % (42.0-52.0) Mean Corpuscular Volume 83 FL (80-99) Mean Corpuscular Hemoglobin 26.2 PG (27.0-31.0) Mean Corpuscular Hemoglobin Concent 31.8 G/DL (32.0-36.0) Red Cell Distribution Width 17.3 % (11.6-14.8) Platelet Count 344 K/UL (150-450) Mean Platelet Volume 6.4 FL (6.5-10.1) Neutrophils (%) (Auto) 55.4 % (45.0-75.0) Lymphocytes (%) (Auto) 22.7 % (20.0-45.0) Monocytes (%) (Auto) 17.9 % (1.0-10.0) Eosinophils (%) (Auto) 2.7 % (0.0-3.0) Basophils (%) (Auto) 1.4 % (0.0-2.0) Sodium Level 140 MMOL/L (136-145) Potassium Level 5.0 MMOL/L (3.5-5.1) Chloride Level 106 MMOL/L (98-107) Carbon Dioxide Level 27 MMOL/L (21-32) Anion Gap 7 mmol/L (5-15) Blood Urea Nitrogen 19 mg/dL (7-18) Creatinine 1.0 MG/DL (0.55-1.30) Estimat Glomerular Filtration Rate > 60 mL/min (>60) Glucose Level 124 MG/DL (74-106) Calcium Level 8.3 MG/DL (8.5-10.1) Total Bilirubin 0.2 MG/DL (0.2-1.0) Aspartate Amino Transf (AST/SGOT) 14 U/L (15-37) Alanine Aminotransferase (ALT/SGPT) 18 U/L (12-78) Alkaline Phosphatase 69 U/L (46-116) Total Protein 6.0 G/DL (6.4-8.2) Albumin 2.0 G/DL (3.4-5.0) Globulin 4.0 g/dL Albumin/Globulin Ratio 0.5 (1.0-2.7) Salicylates Level 1.2 ug/mL (2.8-20) Acetaminophen Level < 2 MCG/ML (10-30) Serum Alcohol < 3 mg/dL Last Vital Signs Date Time Temp Pulse Resp B/P (MAP) Pulse Ox O2 Delivery O2 Flow Rate FiO2 05/20/19 21:54 97.9 102 18 101/56 (71) Status: improved Disposition: PLACE IN OBSERVATION Condition: Stable Leo Callahan MD May 20, 2019 23:40
[2019-05-21] VITALS: BP 111/48
--- NOTE | 2019-05-21 | NUR ---
ED Nurse Note: PT CONTINUES TO REST IN BED, GETS UP AT TIMES WHEN IN NEED OF SOMETHING, PT GIVEN SANDWICH AND JUICE, ATE ALL AND ASKING FOR MORE, PT IS AMBULATORY, ALSO NOTED WITH SEVERE REDNESS TO BILAT HIPS AND BUTTOCKS AREA, PROTOCOL FOLLOWED AND PHOTOS TAKEN, PT HAS ON DIAPER, ATTEMPTED TO ASSIST WITH URINAL USE, PT DOES AT TIMES GET OUT OF BED BUT FOLLOWS DIRECTION WHEN ASKED TO GO BACK, PT IS TO BE ADMITTED, WILL CONTINUE TO CLOSELY MONITOR AND PREPARE FOR ADMISSION.
[2019-05-21 00:53] LABS: BASOPHILS % (AUTO) 1.4 % (0.0-2.0); EOSINOPHILS % (AUTO) 2.7 % (0.0-3.0); HEMATOCRIT 27.8 % (42.0-52.0); HEMOGLOBIN 8.8 G/DL (14.2-18.0); LYMPHOCYTES % (AUTO) 22.7 % (20.0-45.0); MEAN CORPUSCULAR VOLUME 83 FL (80-99); MONOCYTES % (AUTO) 17.9 % (1.0-10.0); NEUTROPHILS % (AUTO) 55.4 % (45.0-75.0); PLATELET COUNT 344 K/UL (150-450); RED BLOOD COUNT 3.38 M/UL (4.70-6.10); RED CELL DISTRIBUTION WIDTH 17.3 % (11.6-14.8); WHITE BLOOD COUNT 7.2 K/UL (4.8-10.8)
[2019-05-21 00:59] LABS: ANION GAP 7 mmol/L (5-15); BLOOD UREA NITROGEN 19 mg/dL (7-18); CALCIUM 8.3 MG/DL (8.5-10.1); CARBON DIOXIDE 27 MMOL/L (21-32); CHLORIDE 106 MMOL/L (98-107); SODIUM 140 MMOL/L (136-145)
[2019-05-21 01:03] LABS: ALANINE AMINOTRANSFERASE 18 U/L (12-78); ALBUMIN/GLOBULIN RATIO 0.5 (1.0-2.7); ALKALINE PHOSPHATASE 69 U/L (46-116); ASPARTATE AMINO TRANSFERASE 14 U/L (15-37); BILIRUBIN,TOTAL 0.2 MG/DL (0.2-1.0)
--- NOTE | 2019-05-21 02:45 | NUR ---
ED Nurse Note: PT GOT OUT OF BED AGAIN, TELLING NURSE HE IS WET, PT CLEANED AND BED LINENS CHANGED, PT WENT BACK TO BED WITHOUT HASSLE, DOES COOPERATE AND FOLLOW DIRECTIONS, ALSO GIVEN ANOTHER SANDWICH, ATE ALL AND DRANK JUICE ALSO, PT VERY THANKFUL, PT REMAINS AMBULATORY, V/S STABLE, IV SITE PATENT, NAD OR CHANGES NOTED, WILL CONTINUE TO MONITOR WHILE WAITING FOR ROOM PLACEMENT FOR ADMISSION.
--- NOTE | 2019-05-21 03:15 | NUR ---
ED Nurse Note: PLACED CALL TO FLOOR NURSE FOR REPORT, WAITING FOR ASSESSMENT SERVICES MANAGER RETURN CALL FOR ROOM CHANGE DUE TO PT MEDICAL HISTORY, CHARGE NURSE AND MD AWARE OF DELAY, PT CONTINUES TO REST QUIETLY IN BED.
--- NOTE | 2019-05-21 04:15 | NUR ---
ED Nurse Note: PT HAS NEW ROOM FOR ADMISSION, ATTEMPTED REPORT CALLED TO YAMEL Stafford, NO REPORT GIVEN, PT BEING SENT TO FLOOR BED VIA WHEELCHAIR WITH [facility], PT HAS ALL BELONGINGS, IV SITE PATENT, NAD NOTED DURING PT TRANSPORT.
--- NOTE | 2019-05-21 05:19 | NUR ---
NURSE NOTES: Pt received from ED from [facility], brought by wheelchair and ambulated with assistance to the bed. Pt has an order to ambulate only with assistance as he is weak with unsteady gait, high fall risk. He has a contusion to R elbow and has some healed sores to trochanters, possible st 2. Will input plan of care and positioning to maintain skin integrity. Pt had no belongings. Pt is now in semi fowlers, HOB elevated, aspiration precautions, bed locked in lowest position., bed alarm on and side rails x3. Pt has IV L FA 18 g NS lock. Pt has been placed on observation at this time. Will call Dr Garcia for admitting orders. Addendum: 05/21/19 at 0524 by Sara Mcdaniels RN Received partial report from YAMEL Lopez in ED
[2019-05-21 05:30] VITALS: BP 103/71
--- NOTE | 2019-05-21 06:41 | NUR ---
NURSE NOTES: Awaiting admitting orders from Dr Garcia. Pt is being disruptive and throwing poop at the door and at staff. He is being uncooperative at this time- says he is hungry, changed and cleaned bed and pt thoroughly.
--- NOTE | 2019-05-21 07:19 | NUR ---
NURSE NOTES: Received orders to input. will enter from Dr Rosenthal
[2019-05-21] MEDS ORDERED: Albuterol ud Inhalation HHN PRN (07:30)
[2019-05-21] MEDS ORDERED: DiphenhydrAMINE 25mg Tab ORAL PRN (07:30)
--- NOTE | 2019-05-21 07:45 | NUR ---
NURSE NOTES: Pt was flinging poop at the door and at the staff. We went in to change him and he was smearing poop on himself and his bed, cleaned and covered him, bed alarm on. Pt is very confused and continuously tries to get out of bed. PRN orders placed- Non behavioral restraints applied due to climbing out of bed repeatedly and unable to reorient
[2019-05-21 08:00] VITALS: BP 102/58
--- NOTE | 2019-05-21 08:10 | NUR ---
HAND-OFF: Report given to Hipolito Allen RN.
[2019-05-21] MEDS: Tamsulosin 0.4mg cap ORAL SCH (08:41)
[2019-05-21] MEDS: Heparin 5000 units/ml inj SUBQ SCH ×2 (08:45→20:08)
[2019-05-21] MEDS: Haloperidol 5mg/ml Inj IM PRN ×2 (09:32→18:38)
--- NOTE | 2019-05-21 09:49 | NUR ---
NURSE NOTES: PT IS AXOX1, RESTLESS. PT CAN BE REDIRECTED, BUT IS VERY IMPULSIVE AND UNABLE TO COMPREHEND RN'S INSTRUCTIONS FOR SAFETY. PT CONTINUES TO PULL ON IV ACCESS AND GET OUT OF BED. PT'S GAIT IS UNSTEADY AND WEAK. BILATERAL SOFT WRIST RESTRAINTS ORDER NOTED AND PT IS ON RESTRAINTS ORDERED. PT CONTINUES TO ATTEMPT TO GET OUT OF BED. PT PLACED IN SEMI-JUAREZ' S POSITION WITH HOB ELEVATED. BED IN LOWEST POSITION WITH BEDSIDE RAILS X3 RAISED. BED ALARM ON ZONE 1. RN ADMINISTERED PRN HALDOL 5MG IM FOR RESTLESSNESS ORDERED. PT TOOK ALL ORAL MEDICATIONS. IN NO APPARENT DISTRESS AT THIS TIME. VSS. STAFF AWARE PT IS HIGH FALL RISK. PT WITH YELLOW GOWN AND YELLOW FALL RISK BRACELET. PT CLOSE TO NURSE'S STATION. WILL CONTINUE TO MONITOR.
--- NOTE | 2019-05-21 09:58 | NUR ---
NURSE NOTES: APPLIED CONDOM CATH ON PT TO COLLECT URINE FOR URINALYSIS AND DRUG URINE SCREEN. PT IS INCONTINENT AND UNABLE TO LET STAFF KNOW WHEN HE NEEDS TO URINATE.
--- NOTE | 2019-05-21 10:07 | Diagnostic Imaging Report ---
EXAM: XR Chest, 1 View CLINICAL HISTORY: ALOC TECHNIQUE: Frontal view of the chest. COMPARISON: 05/03/19. FINDINGS: Lungs: Unremarkable. No consolidation. Pleural space: Unremarkable. No pneumothorax. Heart: Unremarkable. No cardiomegaly. Mediastinum: Unremarkable. Bones/joints: Unremarkable. IMPRESSION: Normal chest x-ray.
[2019-05-21 10:39] LABS: APPEARANCE,URINE CLEAR; BILIRUBIN, URINE NEGATIVE (NEGATIVE); COLOR,URINE PALE YELLOW; GLUCOSE, URINE (UA) NEGATIVE (NEGATIVE); KETONES,URINE NEGATIVE (NEGATIVE); LEUKOCYTE ESTERASE ,URINE NEGATIVE (NEGATIVE); NITRITE,URINE NEGATIVE (NEGATIVE); PH,URINE 8 (4.5-8.0); PROTEIN,URINE NEGATIVE (NEGATIVE); UROBILINOGEN,URINE NORMAL MG/DL (0.0-1.0)
[2019-05-21 12:00] VITALS: BP 122/81
[2019-05-21] MEDS: NovoLOG Insulin Flexpen SUBQ SCH ×3 (12:05→20:10)
[2019-05-21 16:00] VITALS: BP 130/83
--- NOTE | 2019-05-21 16:00 | History & Physical ---
History and Physical History & Physicial History and Physical HPI Patient is a 73 year old man admited from [facility] facility. Patient had a recent fall from standing. He reported having pain to the right elbow as well as to his head. He had been noted to be ambulatory after the fall. He reports having some pain to his head. He also reports having some pain to his elbow. Denies any other locations of pain at this time. Prior history of psychiatric disease, Failure to thrive, rash as well as encephalopathy. CXR and UA did not reveal evidence of infection, noticed to have abnormal behavior. Allergies: AZITHROMYCIN Past Medical History: Psychiatric disease, rash, encephalopathy, Anemia, Decubitus ulcer, Dementia, Schizo, COPD, DM, HTN, CHF, PCM,Failure to thrive, prev sepsis Reviewed Nursing Documentation: PMH: Agreed; PSxH: Agreed All Other Systems: limited - Limited by poor historian Physical Exam Vital Signs Noted Date Time Temp Pulse Resp B/P (MAP) Pulse Ox O2 Delivery O2 Flow Rate FiO2 05/20/19 21:54 97.9 102 18 101/56 (71) General Appearance: normal inspection, alert, agitated, Chronically Ill Head: atraumatic Eyes: bilateral eye PERRL ENT: normal ENT inspection, hearing grossly normal, normal voice Neck: normal inspection, full range of motion, supple, no bony tend Respiratory: normal inspection, lungs clear, normal breath sounds, no respiratory distress, no retraction, no wheezing Cardiovascularregular rate, rhythm, HS1, HS2 normal, no edema Gastrointestinal: normal inspection, normal bowel sounds, non tender, soft, no guarding, no hernia Genitourinary: no CVA tenderness Musculoskeletal: normal inspection, back normal, normal range of motion Neurologic: alert, motor strength/tone normal, auto clutch specialist III-XII nml as tested, responsive, speech normal, normal inspection, other - Generalized atrophy Psychiatric: judgement/insight normal, anxious/agitated, bizarre behavior Skin: other - superficial laceration to right elbow Impression: Recent Fall Malnutrition - PCM Failure to thrive Contusion of right elbow Chronic Anemia Psychiatric illness Diabetes Hypertension CHF COPD Encephalopathy Previous TIA Dementia Rash - scabies previously RO Decubitus ulcer Plan - Monitor labs - Psychiatry Consultation - HEALTH CARE MANAGER Medications - Wound Nurse - PPX Labs Test 05/21/19 00:15 White Blood Count 7.2 K/UL (4.8-10.8) Red Blood Count 3.38 M/UL (4.70-6.10) Hemoglobin 8.8 G/DL (14.2-18.0) Hematocrit 27.8 % (42.0-52.0) Mean Corpuscular Volume 83 FL (80-99) Mean Corpuscular Hemoglobin 26.2 PG (27.0-31.0) Mean Corpuscular Hemoglobin Concent 31.8 G/DL (32.0-36.0) Red Cell Distribution Width 17.3 % (11.6-14.8) Platelet Count 344 K/UL (150-450) Mean Platelet Volume 6.4 FL (6.5-10.1) Neutrophils (%) (Auto) 55.4 % (45.0-75.0) Lymphocytes (%) (Auto) 22.7 % (20.0-45.0) Monocytes (%) (Auto) 17.9 % (1.0-10.0) Eosinophils (%) (Auto) 2.7 % (0.0-3.0) Basophils (%) (Auto) 1.4 % (0.0-2.0) Sodium Level 140 MMOL/L (136-145) Potassium Level 5.0 MMOL/L (3.5-5.1) Chloride Level 106 MMOL/L (98-107) Carbon Dioxide Level 27 MMOL/L (21-32) Anion Gap 7 mmol/L (5-15) Blood Urea Nitrogen 19 mg/dL (7-18) Creatinine 1.0 MG/DL (0.55-1.30) Estimat Glomerular Filtration Rate > 60 mL/min (>60) Glucose Level 124 MG/DL (74-106) Calcium Level 8.3 MG/DL (8.5-10.1) Total Bilirubin 0.2 MG/DL (0.2-1.0) Aspartate Amino Transf (AST/SGOT) 14 U/L (15-37) Alanine Aminotransferase (ALT/SGPT) 18 U/L (12-78) Alkaline Phosphatase 69 U/L (46-116) Total Protein 6.0 G/DL (6.4-8.2) Albumin 2.0 G/DL (3.4-5.0) Globulin 4.0 g/dL Albumin/Globulin Ratio 0.5 (1.0-2.7) Salicylates Level 1.2 ug/mL (2.8-20) Acetaminophen Level < 2 MCG/ML (10-30) Serum Alcohol < 3 mg/dL CT Head: CT imaging of the head was ordered read by radiology showed atrophic changes without evident acute intracranial pathology CXR: No acute pathology Sharif Rosenthal MD May 21, 2019 16:00
--- NOTE | 2019-05-21 18:47 | NUR ---
NURSE NOTES: DR BARRIENTOS WITH ORDER TO RE-ORDER RIGHT ELBOW XR. RN ENTERED ORDER. PER RADIOLOGY, PT IS NOT COOPERATIVE. RN TO ADMINISTER MEDS. RADIOLOGY TO DO XR AT 1930 HRS.
[2019-05-21] MEDS: LORazepam Inj 2mg/ml 1ml IV PRN (19:25)
--- NOTE | 2019-05-21 19:30 | NUR ---
HAND-OFF: Report given to Jackie SOLIZ RN.
--- NOTE | 2019-05-21 19:36 | NUR ---
NURSE NOTES: Received report from YAMEL Mcmillan. AAO x 1, confused, restless. Pt has estrellita. soft wrist restraints. Skin intact under the restraints. IV site intact and patent. Pt is high fall risk. Will monitor closely. No acute distress noted. Bed locked, lowest position, alarm on, side rails up x 3, call light within reach.
[2019-05-21 20:00] VITALS: BP 121/73
--- NOTE | 2019-05-21 20:17 | Diagnostic Imaging Report ---
EXAM: XR Right Elbow Complete, 3 or More Views CLINICAL HISTORY: FALL TECHNIQUE: Frontal, lateral and oblique views of the right elbow. COMPARISON: No relevant prior studies available. FINDINGS: Bones/joints: Otherwise no acute osseous abnormality. No dislocation. Soft tissues: Soft tissue swelling over the olecranon with tiny possible osseous james seen on the lateral radiograph; this could represent a tiny avulsion fracture. Olecranon soft tissue swelling can also be seen with olecranon bursitis, which could be posttraumatic. Correlate with presentation. IMPRESSION: 1. Soft tissue swelling over the olecranon with tiny possible osseous james seen on the lateral radiograph; this could represent a tiny avulsion fracture. 2. Otherwise no acute osseous abnormality. 3. Olecranon soft tissue swelling can also be seen with olecranon bursitis, which could be posttraumatic. Correlate with presentation.
[2019-05-22] VITALS: BP 127/80
[2019-05-22] MEDS: LORazepam Inj 2mg/ml 1ml IV PRN (00:46)
[2019-05-22 04:00] VITALS: BP 121/68
[2019-05-22] MEDS: NovoLOG Insulin Flexpen SUBQ SCH ×4 (06:24→20:57)
--- NOTE | 2019-05-22 07:15 | NUR ---
NURSE NOTES: Received report and notification of fall risk from YAMEL Navarro. Patient on room air, no signs of distress or labored breathing. IV intact, patent, and saline locked. Bilateral soft wrist restraints on. Bed in lowest position with call light in reach. Will continue with plan of care and reorientation of patient.
--- NOTE | 2019-05-22 07:20 | NUR ---
HAND-OFF: Report given to YAMEL Prieto. Endorsed high fall risk status to oncoming nurse.
[2019-05-22 08:00] VITALS: BP 99/60
[2019-05-22] MEDS: Tamsulosin 0.4mg cap ORAL SCH (10:57)
[2019-05-22] MEDS: Heparin 5000 units/ml inj SUBQ SCH ×2 (10:58→20:29)
--- NOTE | 2019-05-22 11:31 | NUR ---
RD ASSESSMENT & RECOMMENDATIONS SEE CARE ACTIVITY FOR COMPLETE ASSESSMENT DAILY ESTIMATED NEEDS: Needs based on Underweight wounds 52.3kg 30-35 kcals/kg 7126-2030 total kcals 1.25-1.5 g protein/kg 65-78 g total protein 25-30 mL/kg 0473-1582 total fluid mLs NUTRITION DIAGNOSIS: Increased kcal and pro needs r/t wound healing and underweight status as evidenced by pt w/ wound photos, h/o pressure wounds, BMI underweight per guidelines, @67% of [place] Body Weight w/ generalized moderate to severe wasting. CURRENT DIET: Soft ms ground CCHO HIGH/ Cardiac PO DIET RECOMMENDATIONS: Liberalized Regular diet/ texture per ELECTRIC POWER LINE REPAIRER ADDITIONAL RECOMMENDATIONS: 1) Rec to obtain a Calibrated bed scale wt 2) Wound care: F/up w/ WC eval, add RENETTA BID . 3) Ensure enlive BID (350kcal/20g prot per bottle) (350kcal/20g prot per bottle) 4) ELECTRIC POWER LINE REPAIRER eval for appropriate texture 5) Hold psych meds at meal time to ensure po intake
[2019-05-22 12:00] VITALS: BP 113/70
--- NOTE | 2019-05-22 13:09 | Consultation ---
History of Present Illness General Date patient seen: May 22, 2019 Reason for Hospitalization: Multiple Trauma/Fall Present Illness HPI This is a very pleasant 73-year-old male known to me from prior admission who was a nursing facility recovering but had a ground-level fall with injury to his right elbow. Patient is brought [facility] for evaluation admitted for further care and management. Surgery called to evaluate and assist with care. Patient seen, patient evaluate, chart reviewed. Patient is awake and alert but not cooperative. Moves around a lot and tries to get out of bed. Requires restraints at times given his non-cooperative baseline status. No nausea vomiting fever chills. Labs noted. X-ray imaging reviewed. Physical exam completed. Allergies: Coded Allergies: AZITHROMYCIN (Verified Allergy, Unknown, 04/30/19) Medication History Scheduled Clotrimazole* (Lotrimin*), 1 APPLIC TOPIC TWICE A DAY, (Reported) Famotidine* (Pepcid 20mg tablet*), 80 MG ORAL DAILY, (Reported) Midodrine* (Proamatine*), 5 MG ORAL TWICE A DAY, (Reported) Mirtazapine* (Mirtazapine*), 15 MG ORAL BEDTIME, (Reported) Multivitamins* (Multivitamins*), 1 TAB ORAL DAILY, (Reported) Pantoprazole* (Pantoprazole*), 40 MG ORAL DAILY, (Reported) Pilocarpine (Pilocarpine HCl), 5 MG PO THREE TIMES A DAY, (Reported) Quetiapine Fumarate* (Seroquel*), 100 MG ORAL BEDTIME, (Reported) Quetiapine Fumarate* (Seroquel*), 50 MG ORAL TWICE A DAY, (Reported) Risperidone* (Risperdal*), 1 MG PO BID, (Reported) Tamsulosin HCl (Flomax), 0.4 MG ORAL QHS, (Reported) Tamsulosin HCl (Flomax), 0.4 MG ORAL DAILY, (Reported) Scheduled PRN Acetaminophen* (Acetaminophen 325MG Tablet*), 650 MG ORAL Q6H PRN for FEVER > 100, (Reported) Al Hydroxide/mg Hydroxide (Mag-Al Liquid), 30 ML ORAL Q4HR PRN for Abdominal cramps, (Reported) Albuterol Sulfate* (Albuterol Sulfate Hhn*), 2.5 ML INH Q4H PRN for Shortness of Breath, (Reported) Bisacodyl (Bisacodyl), 10 MG RC DAILY PRN for Constipation, (Reported) Clonidine Hcl (Clonidine Hcl), 0.1 MG PO Q4HR PRN for For High Blood Pressure, ( Reported) Diphenhydramine Hcl* (Diphenhydramine Hcl*), 25 MG ORAL Q4HR PRN for Itching, ( Reported) Loperamide Hcl (Loperamide), 2 MG PO Q4HR PRN for Diarrhea, (Reported) Melatonin (Melatonin), 3 MG ORAL BEDTIME PRN for Insomnia, (Reported) Discontinued Medications Vancomycin Hcl/D5w (Vancomycin-D5w 500 Mg/100 Ml), 500 MG IV Q12HR, (Reported) Discontinued Reason: Pt stopped taking med Patient History Limited by: medical condition History Provided By: Medical Record, PMD Healthcare decision maker Resuscitation status Full Code Advanced Directive on File Past Medical/Surgical History Past Medical/Surgical History: (1) Decubitus skin ulcer (2) Abscess of left shoulder (3) Abdominal distension (gaseous) (4) Ischemic colitis (5) Malnutrition (6) Fall (7) Contusion of right elbow (8) Anemia (9) Schizophrenia, paranoid Review of Systems Review of Symptoms General ROS: no weight loss or fever Psychological ROS: no depression or mood changes, no memory loss Ophthalmic ROS: no visual changes or eye irritation ENT ROS: no nasal congestion, hearing loss, dizziness Allergy and Immunology ROS: no allergic symptoms or urticaria Hematological and Lymphatic ROS: no swollen glands, unusual bleeding or bruising Endocrine ROS: no polyuria, polydipsia, weight changes, temperature intolerance Respiratory ROS: no cough, shortness of breath, or wheezing Cardiovascular ROS: no chest pain or dyspnea on exertion Gastrointestinal ROS: denies abdominal pain, bright red blood in stool. Musculoskeletal ROS: no myalgias or arthralgias Neurological ROS: no TIA or stroke symptoms Dermatological ROS: no new or changing skin lesions, rashes or pruritis Difficult to obtain given patient's baseline medical mental status but seemingly denies all above when asked Physical Exam Physical Exam General appearance: alert, cooperative, no distress, appears stated age Head: Normocephalic, without obvious abnormality, atraumatic Eyes: conjunctivae/corneas clear. PERRL, EOM's intact. Fundi benign Throat: Lips, mucosa, and tongue normal. Teeth and gums normal Neck: supple, symmetrical, trachea midline, no adenopathy, thyroid: not enlarged, symmetric, no tenderness/mass/nodules, no carotid bruit and no JVD Lungs: clear to auscultation bilaterally Heart: regular rate and rhythm, S1, S2 normal, no murmur, click, rub or gallop Abdomen: soft, non-tender. Bowel sounds normal. No masses, no organomegaly Extremities: extremities normal, atraumatic, no cyanosis or edema ++ right elbow Pulses: 2+ and symmetric Skin: see below Neurologic: Grossly normal Last 24 Hour Vital Signs Date Time Temp Pulse Resp B/P (MAP) Pulse Ox O2 Delivery O2 Flow Rate FiO2 05/22/19 12:00 98.5 105 19 113/70 (84) 95 05/22/19 09:00 Room Air 05/22/19 08:00 98.4 110 18 99/60 (73) 97 05/22/19 07:29 98 Nasal Cannula 2.0 28 05/22/19 04:00 98.6 93 21 121/68 (85) 98 05/22/19 00:00 98.2 100 19 127/80 (96) 97 05/21/19 20:56 Room Air 05/21/19 20:00 98.5 109 20 121/73 (89) 96 05/21/19 16:00 99.8 96 18 130/83 (99) 99 Intake and Output 05/21/19 05/22/19 19:00 07:00 Intake Total 600 ml Balance 600 ml Intake Oral 600 ml # Voids 8 3 # Bowel Movements 1 1 Height (Feet): 5 Height (Inches): 11.00 Weight (Pounds): 115 Medications Current Medications Medications (Trade) Dose Ordered Sig/Rachel Route PRN Reason Start Time Stop Time Status Last Admin Dose Admin Acetaminophen (Tylenol) 650 mg Q6H PRN ORAL FEVER > 100 05/21/19 07:30 06/20/19 07:29 Al Hydroxide/Mg Hydroxide (Mylanta) 30 ml Q4H PRN ORAL Abdominal cramps 05/21/19 07:30 06/20/19 07:29 Albuterol Sulfate (Proventil) 2.5 mg Q4H PRN HHN Shortness of Breath 05/21/19 07:30 05/26/19 07:29 Bisacodyl (Dulcolax) 10 mg DAILY PRN RECTAL Constipation 05/21/19 07:30 06/20/19 07:29 Clonidine HCl (Catapres Tab) 0.1 mg Q4H PRN ORAL For High Blood Pressure 05/21/19 07:30 06/20/19 07:29 Dextrose (Dextrose 50%) 25 ml Q30M PRN IV Hypoglycemia 05/21/19 07:30 06/20/19 07:29 Dextrose (Dextrose 50%) 50 ml Q30M PRN IV Hypoglycemia 05/21/19 07:30 06/20/19 07:29 Diphenhydramine HCl (Benadryl) 25 mg Q4H PRN ORAL Itching 05/21/19 07:30 06/20/19 07:29 Divalproex Sodium (Depakote) 250 mg TID ORAL 05/21/19 09:00 06/20/19 08:59 05/22/19 10:57 Haloperidol Lactate (Haldol) 5 mg Q6H PRN IM Agitation 05/21/19 07:30 06/20/19 07:29 05/21/19 18:38 Heparin Sodium (Porcine) (Heparin 5000 units/ml) 5,000 units EVERY 12 HOURS SUBQ 05/21/19 09:00 06/20/19 08:59 05/22/19 10:58 Insulin Aspart (NovoLOG) BEFORE MEALS AND HS SUBQ 05/21/19 11:30 06/20/19 11:29 Lorazepam (Ativan 2mg/ml 1ml) 1 mg Q4H PRN IV For Anxiety 05/21/19 07:30 05/28/19 07:29 05/22/19 00:46 Mirtazapine (Remeron) 15 mg BEDTIME ORAL 05/21/19 21:00 06/20/19 20:59 05/21/19 20:05 Multivitamins (Multivitamins) 1 tab DAILY ORAL 05/21/19 09:00 06/20/19 08:59 05/22/19 10:57 Ondansetron HCl (Zofran) 4 mg PRN PRN IVP Nausea & Vomiting 05/21/19 02:15 Pantoprazole (Protonix) 40 mg DAILY ORAL 05/21/19 09:00 06/20/19 08:59 05/22/19 10:57 Risperidone (RisperDAL) 1 mg BID ORAL 05/21/19 09:00 06/20/19 08:59 05/22/19 10:57 Tamsulosin HCl (Flomax) 0.4 mg DAILY ORAL 05/21/19 09:00 06/20/19 08:59 05/22/19 10:57 Assessment/Plan Problem List: (1) Fall Assessment & Plan: Brain: No hemorrhage, herniation, or mass effect. Chronic microvascular ischemic changes. Ventricles: No hydrocephalus. Age related cerebral volume loss. Bones/joints: Unremarkable. Soft tissues: Unremarkable. Sinuses: Unremarkable. Mastoid air cells: Severe bilateral mastoid effusions. IMPRESSION: No acute hemorrhage, hydrocephalus, or mass effect. Severe bilateral mastoid effusions. fall precautions ICD Codes: W19.XXXA - Unspecified fall, initial encounter SNOMED: 9996236, [id number] (2) Malnutrition Assessment & Plan: DAILY ESTIMATED NEEDS: Needs based on Underweight wounds 52.3kg 30-35 kcals/kg 5480-2002 total kcals 1.25-1.5 g protein/kg 65-78 g total protein 25-30 mL/kg 3356-0384 total fluid mLs NUTRITION DIAGNOSIS: Increased kcal and pro needs r/t wound healing and underweight status as evidenced by pt w/ wound photos, h/o pressure wounds, BMI underweight per guidelines, @67% of [place] Body Weight w/ generalized moderate to severe wasting. CURRENT DIET: Soft ms ground CCHO HIGH/ Cardiac PO DIET RECOMMENDATIONS: Liberalized Regular diet/ texture per GROUP LEADER WAFER POLISHING ADDITIONAL RECOMMENDATIONS: 1) Rec to obtain a Calibrated bed scale wt 2) Wound care: F/up w/ WC eval, add RENETTA BID . 3) Ensure enlive BID (350kcal/20g prot per bottle) (350kcal/20g prot per bottle) 4) GROUP LEADER WAFER POLISHING eval for appropriate texture 5) Hold psych meds at meal time to ensure po intake ICD Codes: E46 - Unspecified protein-calorie malnutrition SNOMED: 69229207 (3) Contusion of right elbow Assessment & Plan: Bones/joints: Otherwise no acute osseous abnormality. No dislocation. Soft tissues: Soft tissue swelling over the olecranon with tiny possible osseous james seen on the lateral radiograph; this could represent a tiny avulsion fracture. Olecranon soft tissue swelling can also be seen with olecranon bursitis, which could be posttraumatic. Correlate with presentation. IMPRESSION: 1. Soft tissue swelling over the olecranon with tiny possible osseous james seen on the lateral radiograph; this could represent a tiny avulsion fracture. 2. Otherwise no acute osseous abnormality. 3. Olecranon soft tissue swelling can also be seen with olecranon bursitis, which could be posttraumatic. Correlate with presentation. no tenderness on exam small closed superficial lac edema stable no infection stable ICD Codes: S50.01XA - Contusion of right elbow, initial encounter SNOMED: 17456949 (4) Decubitus skin ulcer Assessment & Plan: Pt presented on admission with an Unstageable pressure injury R shoulder . Base of wound has 100% slough (L)0.4cm x (W)0.5cm with surrounding indurated and erythematous borders.(L)3cm x (W)3cm. Resolving pressure injury L hip. Non-blanching erythema noted with pink epithelial margins.No evidence of Skin breakdown to sacrum/buttocks. Pt noted to have maculo/papular rash to upper back ,R flank and bilat lower ext. Few scaled rashes noted on both lower ext. Pt confirmed lower ext are itchy but denied itching back. Stable dry eschar noted to lateral L 1st metatarsal dorsal aspects of L 1st,2nd 3rd and 5th metatarsals,R 1st 4th and 5th metatarsals. Both heels are soft but blanchable. No evidence of other skin breakdown noted. right elbow small 1cm closed lac with some mild edema Tx.Plan: Cleanse wound R shoulder with Saline. Apply Therahoney.Apply Cavilon Skin Barrier periwound. Cover with Optifoam drsg. Change every 3 days and prn. Apply Moisture Barrier Paste to L hip. Cover with Optifoam drsg. Change every 3 days and prn. Apply Moisture Barrier Paste to Sacrum and R hip. Change every 3 days and prn. Apply Cavilon Skin Barrier to both heels. Cover each heel with Optifoam drsg. Change every 7 days and prn. Apply foam dressing to right elbow; change q3 days Reposition at least every 2hours or as tolerated. ICD Codes: L89.90 - Pressure ulcer of unspecified site, unspecified stage SNOMED: [id number] Billy Horn May 22, 2019 13:09
[2019-05-22 16:00] VITALS: BP 119/79
--- NOTE | 2019-05-22 16:00 | Pulmonology Progress Note ---
Assessment/Plan Assessment/Plan Pulmonary Progress Note HPI Patient is a 73 year old man admited [facility]. Patient had a recent fall from standing. He reported having pain to the right elbow as well as to his head. He had been noted to be ambulatory after the fall. He reports having some pain to his head. He also reports having some pain to his elbow. Denies any other locations of pain at this time. Prior history of psychiatric disease, Failure to thrive, rash as well as encephalopathy. CXR and UA did not reveal evidence of infection, noticed to have abnormal behavior. Allergies: AZITHROMYCIN Past Medical History: Psychiatric disease, rash, encephalopathy, Anemia, Decubitus ulcer, Dementia, Schizo, COPD, DM, HTN, CHF, PCM,Failure to thrive, prev sepsis Reviewed Nursing Documentation: PMH: Agreed; PSxH: Agreed All Other Systems: limited - Limited by poor historian Physical Exam Vital Signs Noted General Appearance: normal inspection, alert, agitated, Chronically Ill Head: atraumatic Eyes: bilateral eye PERRL ENT: normal ENT inspection, hearing grossly normal, normal voice Neck: normal inspection, full range of motion, supple, no bony tend Respiratory: normal inspection, lungs clear, normal breath sounds, no respiratory distress, no retraction, no wheezing Cardiovascularregular rate, rhythm, HS1, HS2 normal, no edema Gastrointestinal: normal inspection, normal bowel sounds, non tender, soft, no guarding, no hernia Genitourinary: no CVA tenderness Musculoskeletal: normal inspection, back normal, normal range of motion Neurologic: alert, motor strength/tone normal, boiler tube blower III-XII nml as tested, responsive, speech normal, normal inspection, other - Generalized atrophy Psychiatric: judgement/insight normal, anxious/agitated, bizarre behavior Skin: other - superficial laceration to right elbow Impression: Recent Fall Malnutrition - PCM Failure to thrive Contusion of right elbow Chronic Anemia Psychiatric illness Diabetes Hypertension CHF COPD Encephalopathy Previous TIA Dementia Rash - scabies previously RO Decubitus ulcer Plan - Monitor labs - Psychiatry Consultation - D[employer] 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 Medications - Wound Nurse - PPX Labs Test 05/21/19 00:15 White Blood Count 7.2 K/UL (4.8-10.8) Red Blood Count 3.38 M/UL (4.70-6.10) Hemoglobin 8.8 G/DL (14.2-18.0) Hematocrit 27.8 % (42.0-52.0) Mean Corpuscular Volume 83 FL (80-99) Mean Corpuscular Hemoglobin 26.2 PG (27.0-31.0) Mean Corpuscular Hemoglobin Concent 31.8 G/DL (32.0-36.0) Red Cell Distribution Width 17.3 % (11.6-14.8) Platelet Count 344 K/UL (150-450) Mean Platelet Volume 6.4 FL (6.5-10.1) Neutrophils (%) (Auto) 55.4 % (45.0-75.0) Lymphocytes (%) (Auto) 22.7 % (20.0-45.0) Monocytes (%) (Auto) 17.9 % (1.0-10.0) Eosinophils (%) (Auto) 2.7 % (0.0-3.0) Basophils (%) (Auto) 1.4 % (0.0-2.0) Sodium Level 140 MMOL/L (136-145) Potassium Level 5.0 MMOL/L (3.5-5.1) Chloride Level 106 MMOL/L (98-107) Carbon Dioxide Level 27 MMOL/L (21-32) Anion Gap 7 mmol/L (5-15) Blood Urea Nitrogen 19 mg/dL (7-18) Creatinine 1.0 MG/DL (0.55-1.30) Estimat Glomerular Filtration Rate > 60 mL/min (>60) Glucose Level 124 MG/DL (74-106) Calcium Level 8.3 MG/DL (8.5-10.1) Total Bilirubin 0.2 MG/DL (0.2-1.0) Aspartate Amino Transf (AST/SGOT) 14 U/L (15-37) Alanine Aminotransferase (ALT/SGPT) 18 U/L (12-78) Alkaline Phosphatase 69 U/L (46-116) Total Protein 6.0 G/DL (6.4-8.2) Albumin 2.0 G/DL (3.4-5.0) Globulin 4.0 g/dL Albumin/Globulin Ratio 0.5 (1.0-2.7) Salicylates Level 1.2 ug/mL (2.8-20) Acetaminophen Level < 2 MCG/ML (10-30) Serum Alcohol < 3 mg/dL CT Head: CT imaging of the head was ordered read by radiology showed atrophic changes without evident acute intracranial pathology CXR: No acute pathology Elbow XR: possible tiny avulsion fracture Subjective ROS Limited/Unobtainable: No Allergies: Coded Allergies: AZITHROMYCIN (Verified Allergy, Unknown, 04/30/19) Objective Last 24 Hour Vital Signs Date Time Temp Pulse Resp B/P (MAP) Pulse Ox O2 Delivery O2 Flow Rate FiO2 05/22/19 12:00 98.5 105 19 113/70 (84) 95 05/22/19 09:00 Room Air 05/22/19 08:00 98.4 110 18 99/60 (73) 97 05/22/19 07:29 98 Nasal Cannula 2.0 28 05/22/19 04:00 98.6 93 21 121/68 (85) 98 05/22/19 00:00 98.2 100 19 127/80 (96) 97 05/21/19 20:56 Room Air 05/21/19 20:00 98.5 109 20 121/73 (89) 96 05/21/19 16:00 99.8 96 18 130/83 (99) 99 Intake and Output 05/21/19 05/22/19 19:00 07:00 Intake Total 600 ml Balance 600 ml Intake Oral 600 ml # Voids 8 3 # Bowel Movements 1 1 Current Medications Medications (Trade) Dose Ordered Sig/Rachel Route PRN Reason Start Time Stop Time Status Last Admin Dose Admin Acetaminophen (Tylenol) 650 mg Q6H PRN ORAL FEVER > 100 05/21/19 07:30 06/20/19 07:29 Al Hydroxide/Mg Hydroxide (Mylanta) 30 ml Q4H PRN ORAL Abdominal cramps 05/21/19 07:30 06/20/19 07:29 Albuterol Sulfate (Proventil) 2.5 mg Q4H PRN HHN Shortness of Breath 05/21/19 07:30 05/26/19 07:29 Bisacodyl (Dulcolax) 10 mg DAILY PRN RECTAL Constipation 05/21/19 07:30 06/20/19 07:29 Clonidine HCl (Catapres Tab) 0.1 mg Q4H PRN ORAL For High Blood Pressure 05/21/19 07:30 06/20/19 07:29 Dextrose (Dextrose 50%) 25 ml Q30M PRN IV Hypoglycemia 05/21/19 07:30 06/20/19 07:29 Dextrose (Dextrose 50%) 50 ml Q30M PRN IV Hypoglycemia 05/21/19 07:30 06/20/19 07:29 Diphenhydramine HCl (Benadryl) 25 mg Q4H PRN ORAL Itching 05/21/19 07:30 06/20/19 07:29 Divalproex Sodium (Depakote) 250 mg TID ORAL 05/21/19 09:00 06/20/19 08:59 05/22/19 13:59 Haloperidol Lactate (Haldol) 5 mg Q6H PRN IM Agitation 05/21/19 07:30 06/20/19 07:29 05/21/19 18:38 Heparin Sodium (Porcine) (Heparin 5000 units/ml) 5,000 units EVERY 12 HOURS SUBQ 05/21/19 09:00 06/20/19 08:59 05/22/19 10:58 Insulin Aspart (NovoLOG) BEFORE MEALS AND HS SUBQ 05/21/19 11:30 06/20/19 11:29 Lorazepam (Ativan 2mg/ml 1ml) 1 mg Q4H PRN IV For Anxiety 05/21/19 07:30 05/28/19 07:29 05/22/19 00:46 Mirtazapine (Remeron) 15 mg BEDTIME ORAL 05/21/19 21:00 06/20/19 20:59 05/21/19 20:05 Multivitamins (Multivitamins) 1 tab DAILY ORAL 05/21/19 09:00 06/20/19 08:59 05/22/19 10:57 Ondansetron HCl (Zofran) 4 mg PRN PRN IVP Nausea & Vomiting 05/21/19 02:15 Pantoprazole (Protonix) 40 mg DAILY ORAL 05/21/19 09:00 06/20/19 08:59 05/22/19 10:57 Risperidone (RisperDAL) 1 mg BID ORAL 05/21/19 09:00 06/20/19 08:59 05/22/19 10:57 Tamsulosin HCl (Flomax) 0.4 mg DAILY ORAL 05/21/19 09:00 06/20/19 08:59 05/22/19 10:57 Sharif Rosenthal MD May 22, 2019 16:00
--- NOTE | 2019-05-22 19:43 | NUR ---
HAND-OFF: Report given to YAMEL Navarro.
--- NOTE | 2019-05-22 19:54 | NUR ---
NURSE NOTES: Received report from YAMEL Prieto. AAO x 1, confused, restless. Legs are over the side rails. Pt has setrellita. soft wrist restraints. Skin intact under the restraints. IV site intact and patent. Pt is high fall risk. Will monitor closely. Wound dressings intact and clean. No acute distress noted. Bed locked, lowest position, alarm on, side rails up x 3, call light within reach.
[2019-05-22 20:00] VITALS: BP 114/73
[2019-05-23] VITALS: BP 131/86
[2019-05-23 04:00] VITALS: BP 122/70
[2019-05-23] MEDS: NovoLOG Insulin Flexpen SUBQ SCH ×4 (05:37→20:06)
--- NOTE | 2019-05-23 07:27 | NUR ---
NURSE NOTES: patient is in the bed asleep. respiration is even ad unlabored on room air. noted with 22 gauge IV line on r. hand. site is intact. no bleeding, swelling, and coolness noted on site. noted with right elbow contusion; skin intact and non-tender. bed alarm on, bed is in lock position. restrain are inplace as ordered; no skin breakdown noted around the wrist. placed call light within reach. No acute distress noted on patient at this time.
--- NOTE | 2019-05-23 07:46 | NUR ---
HAND-OFF: Report given to YAMEL Alvarez.
[2019-05-23 08:00] VITALS: BP 106/59
[2019-05-23 08:01] LABS: BASOPHILS % (AUTO) 1.8 % (0.0-2.0); EOSINOPHILS % (AUTO) 2.5 % (0.0-3.0); HEMATOCRIT 31.7 % (42.0-52.0); HEMOGLOBIN 10.2 G/DL (14.2-18.0); LYMPHOCYTES % (AUTO) 27.6 % (20.0-45.0); MEAN CORPUSCULAR VOLUME 82 FL (80-99); MONOCYTES % (AUTO) 19.2 % (1.0-10.0); PLATELET COUNT 370 K/UL (150-450); RED BLOOD COUNT 3.86 M/UL (4.70-6.10); RED CELL DISTRIBUTION WIDTH 16.7 % (11.6-14.8); WHITE BLOOD COUNT 4.8 K/UL (4.8-10.8)
[2019-05-23 08:37] LABS: ALANINE AMINOTRANSFERASE 20 U/L (12-78); ALBUMIN 2.2 G/DL (3.4-5.0); ALBUMIN/GLOBULIN RATIO 0.5 (1.0-2.7); ALKALINE PHOSPHATASE 63 U/L (46-116); ANION GAP 11 mmol/L (5-15); ASPARTATE AMINO TRANSFERASE 22 U/L (15-37); BILIRUBIN,TOTAL 0.2 MG/DL (0.2-1.0); BLOOD UREA NITROGEN 23 mg/dL (7-18); CALCIUM 9.2 MG/DL (8.5-10.1); CARBON DIOXIDE 23 MMOL/L (21-32); CHLORIDE 104 MMOL/L (98-107); POTASSIUM 4.6 MMOL/L (3.5-5.1); SODIUM 138 MMOL/L (136-145)
--- NOTE | 2019-05-23 08:49 | General Progress Note ---
Assessment/Plan Assessment/Plan: Recent Fall Malnutrition - PCM Failure to thrive Contusion of right elbow Chronic Anemia Psychiatric illness Diabetes Hypertension CHF COPD Encephalopathy Previous TIA Dementia Rash - scabies previously RO Decubitus ulcer PLAN psych eval dc planning maintain meds monitor for falls snf care once cleared Meds as is for now impression, plan, and exam edited and reviewed in detail care discussed with RN Subjective Allergies: Coded Allergies: AZITHROMYCIN (Verified Allergy, Unknown, 04/30/19) Subjective care noted agitated at time psych pending Objective Last 24 Hour Vital Signs Date Time Temp Pulse Resp B/P (MAP) Pulse Ox O2 Delivery O2 Flow Rate FiO2 05/23/19 07:00 96 Room Air 21 05/23/19 04:00 97.8 94 19 122/70 (87) 96 05/23/19 00:00 97.4 93 20 131/86 (101) 96 05/22/19 21:00 Room Air 05/22/19 20:00 98.6 100 20 114/73 (87) 99 05/22/19 20:00 93 Room Air 21 05/22/19 16:00 97.5 89 18 119/79 (92) 96 05/22/19 12:00 98.5 105 19 113/70 (84) 95 05/22/19 09:00 Room Air Intake and Output 05/22/19 05/23/19 19:00 07:00 Intake Total 300 ml Balance 300 ml Other 300 ml # Voids 2 # Bowel Movements 1 Laboratory Tests 05/23/19 05:36: White Blood Count 4.8, Red Blood Count 3.86L, Hemoglobin 10.2L, Hematocrit 31.7L , Mean Corpuscular Volume 82, Mean Corpuscular Hemoglobin 26.3L, Mean Corpuscular Hemoglobin Concent 32.0, Red Cell Distribution Width 16.7H, Platelet Count 370, Mean Platelet Volume 5.8L, Neutrophils (%) (Auto) 49.0, Lymphocytes (%) (Auto) 27.6, Monocytes (%) (Auto) 19.2H, Eosinophils (%) (Auto) 2.5, Basophils (%) (Auto) 1.8, Erythrocyte Sedimentation Rate [Pending], Prothrombin Time 10.2, Prothromb Time International Ratio 1.0, Activated Partial Thromboplast Time 33, Sodium Level 138, Potassium Level 4.6, Chloride Level 104, Carbon Dioxide Level 23, Anion Gap 11, Blood Urea Nitrogen 23H, Creatinine 1.0, Estimat Glomerular Filtration Rate > 60, Glucose Level 81, Calcium Level 9.2, Total Bilirubin 0.2, Aspartate Amino Transf (AST/SGOT) 22, Alanine Aminotransferase (ALT/SGPT) 20, Alkaline Phosphatase 63, C-Reactive Protein, Quantitative 6.6H, Total Protein 6.7, Albumin 2.2L, Globulin 4.5, Albumin/Globulin Ratio 0.5L Height (Feet): 5 Height (Inches): 11.00 Weight (Pounds): 115 Objective WDWN NAD clear breath sounds bilaterally without rhonchi or wheeze [id number] without MRG NABS nontender no HSM no CCE nonfocal Galen Garcia MD May 23, 2019 08:48
[2019-05-23] MEDS: Tamsulosin 0.4mg cap ORAL SCH (10:58)
[2019-05-23] MEDS: Heparin 5000 units/ml inj SUBQ SCH ×2 (11:00→20:24)
[2019-05-23 12:00] VITALS: BP 110/63
--- NOTE | 2019-05-23 12:21 | Surgery Progress Note ---
Surgery Progress Note Subjective Additional Comments no acute events comfortable stable improving Objective Last 24 Hour Vital Signs Date Time Temp Pulse Resp B/P (MAP) Pulse Ox O2 Delivery O2 Flow Rate FiO2 05/23/19 12:00 98.3 89 18 110/63 (79) 97 05/23/19 09:00 Room Air 05/23/19 08:00 97.6 98 19 106/59 (75) 98 05/23/19 07:00 96 Room Air 21 05/23/19 04:00 97.8 94 19 122/70 (87) 96 05/23/19 00:00 97.4 93 20 131/86 (101) 96 05/22/19 21:00 Room Air 05/22/19 20:00 98.6 100 20 114/73 (87) 99 05/22/19 20:00 93 Room Air 21 05/22/19 16:00 97.5 89 18 119/79 (92) 96 I&O Intake and Output 05/22/19 05/23/19 19:00 07:00 Intake Total 300 ml Balance 300 ml Other 300 ml # Voids 2 # Bowel Movements 1 Dressing: dry Wound: clean Cardiovascular: RSR Respiratory: clear Abdomen: soft, non-tender, present bowel sounds, non-distended Extremities: no tenderness, no cyanosis Laboratory Tests Test 05/23/19 05:36 White Blood Count 4.8 K/UL (4.8-10.8) Red Blood Count 3.86 M/UL (4.70-6.10) L Hemoglobin 10.2 G/DL (14.2-18.0) L Hematocrit 31.7 % (42.0-52.0) L Mean Corpuscular Volume 82 FL (80-99) Mean Corpuscular Hemoglobin 26.3 PG (27.0-31.0) L Mean Corpuscular Hemoglobin Concent 32.0 G/DL (32.0-36.0) Red Cell Distribution Width 16.7 % (11.6-14.8) H Platelet Count 370 K/UL (150-450) Mean Platelet Volume 5.8 FL (6.5-10.1) L Neutrophils (%) (Auto) 49.0 % (45.0-75.0) Lymphocytes (%) (Auto) 27.6 % (20.0-45.0) Monocytes (%) (Auto) 19.2 % (1.0-10.0) H Eosinophils (%) (Auto) 2.5 % (0.0-3.0) Basophils (%) (Auto) 1.8 % (0.0-2.0) Erythrocyte Sedimentation Rate 73 MM/HR (0-20) H Prothrombin Time 10.2 SEC (9.30-11.50) Prothromb Time International Ratio 1.0 (0.9-1.1) Activated Partial Thromboplast Time 33 SEC (23-33) Sodium Level 138 MMOL/L (136-145) Potassium Level 4.6 MMOL/L (3.5-5.1) Chloride Level 104 MMOL/L (98-107) Carbon Dioxide Level 23 MMOL/L (21-32) Anion Gap 11 mmol/L (5-15) Blood Urea Nitrogen 23 mg/dL (7-18) H Creatinine 1.0 MG/DL (0.55-1.30) Estimat Glomerular Filtration Rate > 60 mL/min (>60) Glucose Level 81 MG/DL (74-106) Calcium Level 9.2 MG/DL (8.5-10.1) Total Bilirubin 0.2 MG/DL (0.2-1.0) Aspartate Amino Transf (AST/SGOT) 22 U/L (15-37) Alanine Aminotransferase (ALT/SGPT) 20 U/L (12-78) Alkaline Phosphatase 63 U/L (46-116) C-Reactive Protein, Quantitative 6.6 mg/dL (0.00-0.90) H Total Protein 6.7 G/DL (6.4-8.2) Albumin 2.2 G/DL (3.4-5.0) L Globulin 4.5 g/dL Albumin/Globulin Ratio 0.5 (1.0-2.7) L Plan Problems: (1) Fall Assessment & Plan: Brain: No hemorrhage, herniation, or mass effect. Chronic microvascular ischemic changes. Ventricles: No hydrocephalus. Age related cerebral volume loss. Bones/joints: Unremarkable. Soft tissues: Unremarkable. Sinuses: Unremarkable. Mastoid air cells: Severe bilateral mastoid effusions. IMPRESSION: No acute hemorrhage, hydrocephalus, or mass effect. Severe bilateral mastoid effusions. fall precautions (2) Malnutrition Assessment & Plan: DAILY ESTIMATED NEEDS: Needs based on Underweight wounds 52.3kg 30-35 kcals/kg 6818-2342 total kcals 1.25-1.5 g protein/kg 65-78 g total protein 25-30 mL/kg 5109-7307 total fluid mLs NUTRITION DIAGNOSIS: Increased kcal and pro needs r/t wound healing and underweight status as evidenced by pt w/ wound photos, h/o pressure wounds, BMI underweight per guidelines, @67% of [place] Body Weight w/ generalized moderate to severe wasting. CURRENT DIET: Soft ms ground CCHO HIGH/ Cardiac PO DIET RECOMMENDATIONS: Liberalized Regular diet/ texture per REGIONAL SALES REPRESENTATIVE ADDITIONAL RECOMMENDATIONS: 1) Rec to obtain a Calibrated bed scale wt 2) Wound care: F/up w/ WC eval, add RENETTA BID . 3) Ensure enlive BID (350kcal/20g prot per bottle) (350kcal/20g prot per bottle) 4) REGIONAL SALES REPRESENTATIVE eval for appropriate texture 5) Hold psych meds at meal time to ensure po intake (3) Contusion of right elbow Assessment & Plan: Bones/joints: Otherwise no acute osseous abnormality. No dislocation. Soft tissues: Soft tissue swelling over the olecranon with tiny possible osseous james seen on the lateral radiograph; this could represent a tiny avulsion fracture. Olecranon soft tissue swelling can also be seen with olecranon bursitis, which could be posttraumatic. Correlate with presentation. IMPRESSION: 1. Soft tissue swelling over the olecranon with tiny possible osseous james seen on the lateral radiograph; this could represent a tiny avulsion fracture. 2. Otherwise no acute osseous abnormality. 3. Olecranon soft tissue swelling can also be seen with olecranon bursitis, which could be posttraumatic. Correlate with presentation. no tenderness on exam small closed superficial lac edema stable no infection stable (4) Decubitus skin ulcer Assessment & Plan: Pt presented on admission with an Unstageable pressure injury R shoulder . Base of wound has 100% slough (L)0.4cm x (W)0.5cm with surrounding indurated and erythematous borders.(L)3cm x (W)3cm. Resolving pressure injury L hip. Non-blanching erythema noted with pink epithelial margins.No evidence of Skin breakdown to sacrum/buttocks. Pt noted to have maculo/papular rash to upper back ,R flank and bilat lower ext. Few scaled rashes noted on both lower ext. Pt confirmed lower ext are itchy but denied itching back. Stable dry eschar noted to lateral L 1st metatarsal dorsal aspects of L 1st,2nd 3rd and 5th metatarsals,R 1st 4th and 5th metatarsals. Both heels are soft but blanchable. No evidence of other skin breakdown noted. right elbow small 1cm closed lac with some mild edema Tx.Plan: Cleanse wound R shoulder with Saline. Apply Therahoney.Apply Cavilon Skin Barrier periwound. Cover with Optifoam drsg. Change every 3 days and prn. Apply Moisture Barrier Paste to L hip. Cover with Optifoam drsg. Change every 3 days and prn. Apply Moisture Barrier Paste to Sacrum and R hip. Change every 3 days and prn. Apply Cavilon Skin Barrier to both heels. Cover each heel with Optifoam drsg. Change every 7 days and prn. Apply foam dressing to right elbow; change q3 days Reposition at least every 2hours or as tolerated. Billy Horn May 23, 2019 12:21
--- NOTE | 2019-05-23 14:04 | NUR ---
CASE MANAGEMENT:INITIAL REVIEW 05/21/2019 73 YR OLD MALE BIBA FROM [facility] CC;MULTIPLE TRAUMA/FALL SI;FALL. RIGHT ELBOW CONTUSION. ANEMIA. MALNUTRITION. 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 FTT. RT ELBOW CONTUSION. 98.3 98 20 106/59 96% ON RA H/H 10.2/31.7 BUN 23 IS;HEPARIN SUBQ Q12 HRS PROTONIX PO QD DEPAKOTE PO TID HALDOL IM Q6 HRS PRN PROVENTIL HHN W4 HRS PRN MED SURG STATUS PLAN OF CARE; PSYCH EVAL MONITOR FOR FALLS DCP;FROM [facility]
[2019-05-23 16:00] VITALS: BP 115/65
--- NOTE | 2019-05-23 16:45 | NUR ---
ST NOTES: REFERRAL RECEIVED FOR SWALLOW EVAL AND CHART REVIEWED COMPLETED. PATIENT NOT ALERT FOR EVAL. PER TEACHER AIDE CLERICAL, NO S/S OF ASPIRATION WITH [facility] SOFT GROUND DIET AND THIN LIQUIDS. PATIENT HAS A H/O CVA, DEMENTIA, PNA, RESP FAILURE, MALNUTRITION, AND COPD. AT [facility] ON PUREED AND NECTAR THICK LIQUIDS 05/09/19. CONSIDER DOWNGRADE TO AT LEAST NECTAR THICK LIQUIDS AND CONTINUE WITH [facility] SOFT GROUND DIET FOR NOW. WILL ASSESS FORMALLY TOMORROW. CONSIDER SENDING HIGH TONJA SUP INTAKE IS POOR. D/W Addendum: 05/23/19 at 1649 by MARCUS ESCALERA GUN EXAMINER D/Rell PYLE AND DOWNGRADED DIET.
--- NOTE | 2019-05-23 19:52 | NUR ---
HAND-OFF: Report given to
[2019-05-23 20:00] VITALS: BP 120/83
--- NOTE | 2019-05-23 21:35 | NUR ---
NURSE NOTES: Patient awake in bed, alert to name and location. No respiratory distress noted. Pt asking for some food, will feed per diet order. With bilateral soft wrist restraints. Pulses are present. Educated the patient on criteria of removing restraints. Patient has no answer about it. Call light in reach. Bed in lowest, lock engaged and alarm on. Will continue to monitor.
--- NOTE | 2019-05-23 22:39 | Psych Consult Progress Note ---
Psychiatry Progress Note Psychiatry Progress Note Medications Current Medications Medications (Trade) Dose Ordered Sig/Rachel Route PRN Reason Start Time Stop Time Status Last Admin Dose Admin Acetaminophen (Tylenol) 650 mg Q6H PRN ORAL FEVER > 100 05/21/19 07:30 06/20/19 07:29 Al Hydroxide/Mg Hydroxide (Mylanta) 30 ml Q4H PRN ORAL Abdominal cramps 05/21/19 07:30 06/20/19 07:29 Albuterol Sulfate (Proventil) 2.5 mg Q4H PRN HHN Shortness of Breath 05/21/19 07:30 05/26/19 07:29 Bisacodyl (Dulcolax) 10 mg DAILY PRN RECTAL Constipation 05/21/19 07:30 06/20/19 07:29 Clonidine HCl (Catapres Tab) 0.1 mg Q4H PRN ORAL For High Blood Pressure 05/21/19 07:30 06/20/19 07:29 Dextrose (Dextrose 50%) 25 ml Q30M PRN IV Hypoglycemia 05/21/19 07:30 06/20/19 07:29 Dextrose (Dextrose 50%) 50 ml Q30M PRN IV Hypoglycemia 05/21/19 07:30 06/20/19 07:29 Diphenhydramine HCl (Benadryl) 25 mg Q4H PRN ORAL Itching 05/21/19 07:30 06/20/19 07:29 Divalproex Sodium (Depakote) 250 mg TID ORAL 05/21/19 09:00 06/20/19 08:59 05/23/19 18:29 Haloperidol Lactate (Haldol) 5 mg Q6H PRN IM Agitation 05/21/19 07:30 06/20/19 07:29 05/21/19 18:38 Heparin Sodium (Porcine) (Heparin 5000 units/ml) 5,000 units EVERY 12 HOURS SUBQ 05/21/19 09:00 06/20/19 08:59 05/23/19 20:24 Insulin Aspart (NovoLOG) BEFORE MEALS AND HS SUBQ 05/21/19 11:30 06/20/19 11:29 05/23/19 18:30 Lorazepam (Ativan 2mg/ml 1ml) 1 mg Q4H PRN IV For Anxiety 05/21/19 07:30 05/28/19 07:29 05/22/19 00:46 Mirtazapine (Remeron) 15 mg BEDTIME ORAL 05/21/19 21:00 06/20/19 20:59 05/23/19 20:21 Multivitamins (Multivitamins) 1 tab DAILY ORAL 05/21/19 09:00 06/20/19 08:59 05/23/19 10:58 Ondansetron HCl (Zofran) 4 mg PRN PRN IVP Nausea & Vomiting 05/21/19 02:15 Pantoprazole (Protonix) 40 mg DAILY ORAL 05/21/19 09:00 06/20/19 08:59 05/23/19 10:58 Risperidone (RisperDAL) 1 mg BID ORAL 05/21/19 09:00 06/20/19 08:59 05/23/19 18:28 Tamsulosin HCl (Flomax) 0.4 mg DAILY ORAL 05/21/19 09:00 06/20/19 08:59 05/23/19 10:58 Neurological/Psychiatric: Reports: anxiety, depressed, weakness Allergies: Coded Allergies: AZITHROMYCIN (Verified Allergy, Unknown, 04/30/19) Objective Data Height (Feet): 5 Height (Inches): 11.00 Weight (Pounds): 115 General Appearance: alert, agitated Behavior Mannerisms: poor eye contact Speech: dysarthric Additional Comments: alert, oriented times self and place. Mood is agitated. Affect is flat. Thought process is disorganized. Thought content, no suicidal or homicidal ideation. Cognition is impaired. Insight and judgment is impaired. ASSESSMENT: [place] I Schizophrenia. Cognitive impairment. [place] II Deferred. [place] III As above. [place] IV Low [place] V 20. PLAN: 1. Continue the Ativan as needed, we will change it to p.o. 2. Discontinue the risperidone, start the Seroquel 25 mg t.i.d. 3. Continue to follow and readjust the medications. Jermaine Donaldson MD May 23, 2019 22:39
[2019-05-23] MEDS ORDERED: LORazepam 0.5mg tab ORAL PRN (22:45)
[2019-05-24] VITALS: BP 124/70
--- NOTE | 2019-05-24 01:15 | Consultation ---
DATE OF CONSULTATION: 05/23/2019 HISTORY OF PRESENT ILLNESS: This is a 73-year-old male who I am familiar with from previous encounter. The patient admitted to the hospital for medical stabilization. The patient is having history of schizophrenia. The patient was seen on 05/22/2019. The patient is presenting with disorganized speech and behavior, paranoia. The patient's sleep and appetite are adequate. The patient is on bilateral soft restraints. The patient is having waxing and consciousness. PAST PSYCHIATRIC HISTORY: Schizophrenia, has been on psychotropic medications. PAST MEDICAL HISTORY: Significant for anemia, ischemic colitis, abscess, fall, malnutrition. ALLERGIES: Azithromycin. SUBSTANCE ABUSE HISTORY: No known history of illicit drug use or alcohol. MENTAL STATUS EXAMINATION: The patient is alert, oriented times self and place. Mood is agitated. Affect is flat. Thought process is disorganized. Thought content, no suicidal or homicidal ideation. Cognition is impaired. Insight and judgment is impaired. ASSESSMENT: [place] I Schizophrenia. Cognitive impairment. [place] II Deferred. [place] III As above. [place] IV Low [place] V 20. PLAN: 1. Continue the Ativan as needed, we will change it to p.o. 2. Discontinue the risperidone, start the Seroquel 25 mg t.i.d. 3. Continue to follow and readjust the medications. Jermaine Donaldson M.D. DR: Rhona JOB#: [id number] CC:
[2019-05-24 04:00] VITALS: BP 140/86
[2019-05-24] MEDS: NovoLOG Insulin Flexpen SUBQ SCH ×2 (05:30→11:30)
--- NOTE | 2019-05-24 07:35 | NUR ---
HAND-OFF: Report given to YAMEL Ventura. Addendum: 05/24/19 at 0738 by RICHELLE OLIVIA RN HAND-OFF: Report given to YAMEL Godwin.
--- NOTE | 2019-05-24 07:40 | NUR ---
NURSE NOTES: Received patient in bed, awake, not in respiratory/cardiac distress. Breathing is even and unlabored. On bilateral soft wrist restraints, when released, patient tried to get out of bed without assist with no apparent reasons and tried to pull out IV. Assisted patient with eating and offered water. Patient is wearing yellow socks and gown, side rails x3 up. Bed is in lowest position and locked. Bed alarm is on, patient's room is near the station. Will continue to monitor.
[2019-05-24 08:00] VITALS: BP 127/87
[2019-05-24] MEDS: Tamsulosin 0.4mg cap ORAL SCH (08:38)
[2019-05-24] MEDS: Heparin 5000 units/ml inj SUBQ SCH (08:39)
--- NOTE | 2019-05-24 08:52 | General Progress Note ---
Assessment/Plan Assessment/Plan: Recent Fall Malnutrition - PCM Failure to thrive Contusion of right elbow Chronic Anemia Psychiatric illness Diabetes Hypertension CHF COPD Encephalopathy Previous TIA Dementia Rash - scabies previously RO Decubitus ulcer PLAN psych eval noted dc planning back to snf maintain meds monitor for falls snf care once cleared Meds as is for now impression, plan, and exam edited and reviewed in detail care discussed with RN Subjective Allergies: Coded Allergies: AZITHROMYCIN (Verified Allergy, Unknown, 04/30/19) Subjective care noted agitated at time psych noted Objective Last 24 Hour Vital Signs Date Time Temp Pulse Resp B/P (MAP) Pulse Ox O2 Delivery O2 Flow Rate FiO2 05/24/19 07:20 100 Room Air 21 05/24/19 04:00 98.7 102 20 140/86 (104) 99 05/24/19 00:00 98.7 101 18 124/70 (88) 94 05/23/19 21:00 Room Air 05/23/19 20:00 98.8 100 18 120/83 (95) 94 05/23/19 16:00 98.2 80 19 115/65 (82) 100 05/23/19 12:00 98.3 89 18 110/63 (79) 97 05/23/19 09:00 Room Air Intake and Output 05/23/19 05/24/19 19:00 07:00 Intake Total 1000 ml 240 ml Output Total 500 ml Balance 1000 ml -260 ml Intake Oral 240 ml Other 1000 ml Output Urine Total 500 ml # Voids 1 # Bowel Movements 1 1 Height (Feet): 5 Height (Inches): 11.00 Weight (Pounds): 115 Objective WDWN NAD clear breath sounds bilaterally without rhonchi or wheeze [id number] without MRG NABS nontender no HSM no CCE nonfocal Galen Garcia MD May 24, 2019 08:52
--- NOTE | 2019-05-24 09:13 | NUR ---
DISCHARGE PLANNING PATIENT HAS BEEN REFERRED BACK TO [facility] P: [phone] F: [phone] Addendum: 05/24/19 at 920 by ANAI ELLER LVN LVN PER EDUIN AT [facility], PATIENT ACCEPTED TO RETURN RM 116-[facility] Addendum: 05/24/19 at 923 by ANAI ELLER LVN LVN BLS AMBULANCE TRANSPORTATION SCHEDULED WITH [facility] EXT 1330 WITH ETA @ 11:00 AM CHARGE NURSE LIDIA PAREDES
--- NOTE | 2019-05-24 10:40 | NUR ---
ST EVAL SUMMARY AND D/C SUMMARY: REFERRED FOR SWALLOW EVAL BY DR BARRIENTOS, SEE FULL REPORT. DYSPHAGIA AND ASPIRATION PNEUMONIA RISK FACTORS FOR THIS AGED 73 Y.O.M.: ACUTE ISSUES, FALL, RIGHT ELBOW CONTUSION AND FTT, LUNGS CLEAR ON CXR HEAD CT SCAN 05/20/19 NEGATIVE ACUTE BUT HAS SEVERE MASTOID EFFUSIONS (? ENT F/UP NEEDED). RESP RATE 18-20 AND GOOD SP02 94 TO 100% AND FI02 21% ON ROOM AIR. 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 NO POLST NOR ADVANCE DIRECTIVE REGARDING TUBE FEEDINGS BUT PATIENT STATES HE WANTS TO EAT/DRINK BY MOUTH FOR QUALITY OF LIFE (QOL) PURPOSES. ON 05/02/19 [facility] SWALLOW EVAL HAD MILD OP DYSPHAGIA AND MOD BARIUM SWALLOW STUDY RECOMMENDED BUT NOT COMPLETED DUE TO SCHEDULE CONFLICTS. PT WANTED PO FOR QOL SO PLACED ON DYSPHAGIA DIET OF PUREED AND NECTAR THICK LIQUIDS WITH POSTED ASPIRATION AND REFLUX PRECAUTIONS AND HAD GOOD INTAKE. AT SNF ON REGULAR TYPE PUREED AND NECTAR THICK LIQUIDS DIET CRUSH CRUSHABLE MEDS. NOW HAS GOOD INTAKE 100% ON CCHO-HIGH AND CARDIAC MECH SOFT GROUND AND NECTAR THICK LIQUIDS (ST TOLD RN TO DOWNGRADE LIQUIDS YESTERDAY SINCE RES COUNSELOR SAID PATIENT WAS COUGHING AT TIMES ON THIN LIQUIDS). PER RD OK TO LIBERALIZE DIET TYPE AND SEND ENSURE BID IF NEEDS. PER RN, NO PROBLEMS WITH CRUSHED MEDS WITH APPLESAUCE BUT MAY SOMETIMES COUGH ON THIN LIQUIDS. PATIENT ALERT AND CONFUSED (DISORIENTED TO PLACE/TIME). SPEECH IS INTELLIGIBLE MOST OF THE TIME BUT IMPRECISE DUE TO EDENTULOUS (NO DENTURES PER PATIENT). INITIAL IMPRESSIONS: S/S OF AT LEAST A MILD OROPHARYNGEAL DYSPHAGIA WITH OVERALL INCREASED TRANSIT TIMES. OROMOTOR SKILLS ARE GROSSLY FUNCTIONAL. VOICE IS CLEAR AND VOLITIONAL COUGH IS FAIR IN STRENGTH. GIVEN THIN LIQUIDS VIA STRAW SEQUENTIAL SIPS 3 0Z REYNA SWALLOW PROTOCOL, NO OVERT S/S OF ASPIRATION AND DID NOT GET SOB 20 BPM (BASELINE). GIVEN PUREED TSP, CHEWS UNNECESSARILY FOR A FEW SECONDS, SWALLOWS WITH FAIR HYOLARYNGEAL EXCURSION, NO ORAL RESIDUE NO OVERT ASPIRATION GIVEN MASTICATED SOLIDS (1/2 SALTINE CRACKER SINCE NO DENTITION), CHEWS FOR 10 SECONDS AND NEEDS THIN LIQUID WASH (X2) TO CLEAR MILD ORAL TONGUE RESIDUE, NO OVERT ASPIRATION. TALKED WITH PO WHEN CHEWING AND NEEDED CUES NOT TO TAKE TO AVOID ASPIRATION OF MASTICATED SOLIDS. HAS SILENT ASPIRATION RISK DUE TO VASCULAR DEMENTIA AND CVA HX BUT LUNGS ARE CLEAR NOW. VERY GOOD INTAKE ON [facility] SOFT GROUND AND NECTAR THICK LIQUID DIET RECOMMENDATIONS: CONSIDER NPO UNTIL MODIFIED BARIUM SWALLOW STUDY MBSS TO FURTHER ASSESS SWALLOW, DETERMINE SILENT ASP RISK/ETIOLOGY, AND ATTEMPT TRIAL TX IF PO GIVEN FOR QOL (PT WANTS TO EAT/DRINK BY MOUTH), CONSIDER CONTINUING WITH CURRENT DIET OF [facility] SOFT GROUND AND NECTAR THICK LIQUIDS WITH POSTED ASPIRATION AND REFLUX PRECAUTIONS AND ASSIST WITH MEALS FOR STRATEGIES AND PRECAUTIONS. PER RD, LIBERALIZE DIET AND SEND ENSURE BID IF NEEDS. F/UP WITH SKILLED DYSPHAGIA MANAGEMENT AND TX INCLUDING MOD BARIUM SWALLOW STUDY OP SINCE PT TO BE DC TODAY. EDUCATED/TRAINED RN/RES COUNSELOR IN POSTED PRECAUTIONS. Addendum: 05/24/19 at 1051 by MARCUS ZHANG DISCHARGE AND SWALLOW EVAL SUMMARY: PATIENT SEEN FOR DYSPHAGIA, SEE FULL REPORT IN SWALLOW EVAL. EDUCATED/TRAINED STAFF IN POSTED ASPIRATION AND REFLUX PRECAUTIONS. PLAN: F/UP WITH RELATIONSHIP COUNSELOR AT [facility] FOR SKILLED DYSPHAGIA MANAGEMENT AND TX INCLUDING OUTPATIENT MODIFIED BARIUM SWALLOW STUDY (NOT COMPLETED SINCE PT TO BE D/C TODAY) CONTINUE WITH [facility] SOFT GROUND AND NECTAR THICK LIQUIDS WITH POSTED PRECAUTIONS FOR NOW
[2019-05-24] MEDS ORDERED: ATIVAN1 MG ORAL (11:11)
[2019-05-24] MEDS ORDERED: DEPAKOTE250 MG PO (11:12)
[2019-05-24] MEDS ORDERED: SEROQUEL25 MG ORAL (11:12)
[2019-05-24] MEDS ORDERED: HALDOL INJECT5 MG/ML IM (11:13)
[2019-05-24] MEDS ORDERED: NOVOLOG100 UNITS1 (11:14)
[2019-05-24] MEDS ORDERED: HEPARIN SO5000 UNIT2 SUBQ (11:15)
--- NOTE | 2019-05-24 12:00 | NUR ---
NURSE NOTES: discharged patient to [facility] in stable condition by [facility] with two male attendance. Prior to discharge,patient's V/S stable. Blood sugar was 86mg/dl. Skin assessment done, no new skin issue. Picture obtained for wound. proper wound care done. IV and Id were removed, no s/s of infection on IV removal site. inter facility report given to Herlinda Nurse and endorsed plan of care. Patient has no belongings and RN spoke to Rosana Lewis sister on the phone and relayed discharge. Patient had no episodes of trying to get up without assistance prior to discharge,patient was calm and cooperative.
--- NOTE | 2019-05-24 15:15 | CDS Physician Query ---
Clarification is required for compliance, coding accuracy, and to reflect severity of illness for this patient. Dear Dr. Galen Garcia Date: 05/24/2019 CDS name: Hortencia Alanis Clinical Documentation states: 73 year old man admitted from chronic nursing facility. Patient had a recent fall from standing. He reported having pain to the right elbow as well as to his head...Malnutrition - PCM, Failure to thrive RD note: Increased kcal and pro needs r/t wound healing and underweight status as evidenced by pt w/ wound photos, h/o pressure wounds, BMI underweight per guidelines, @67% of [place] Body Weight w/ generalized moderate to severe wasting BMI 16.0, Albumin 2.0 In order to accurately code this and to reflect the appropriate severity of ilness, please clarify diagnosis. [] Mild Malnutrition [] Moderate Malnutrition [x] Severe Malnutrition [] Unknown degree [] Other: [] Clinically Undetermined Present on Admission: [x] Yes [] No [] Clinically Undetermined Physician signature Date Please also document in your Progress Notes and/or Discharge Summary and indicate if the condition was present on admission. MTDD
--- NOTE | 2019-05-24 16:19 | Surgery Progress Note ---
Surgery Progress Note Subjective Symptoms: improved, tolerating diet, voiding well, passing flatus Objective Last 24 Hour Vital Signs Date Time Temp Pulse Resp B/P (MAP) Pulse Ox O2 Delivery O2 Flow Rate FiO2 05/24/19 09:00 Room Air 05/24/19 08:00 97.5 99 16 127/87 (100) 95 05/24/19 07:20 100 Room Air 21 05/24/19 04:00 98.7 102 20 140/86 (104) 99 05/24/19 00:00 98.7 101 18 124/70 (88) 94 05/23/19 21:00 Room Air 05/23/19 20:00 98.8 100 18 120/83 (95) 94 I&O Intake and Output 05/23/19 05/24/19 19:00 07:00 Intake Total 1000 ml 240 ml Output Total 500 ml Balance 1000 ml -260 ml Intake Oral 240 ml Other 1000 ml Output Urine Total 500 ml # Voids 1 # Bowel Movements 1 1 Dressing: dry Wound: clean Cardiovascular: RSR Respiratory: clear Abdomen: soft, flat, non-tender, present bowel sounds Extremities: no edema, no tenderness, no cyanosis Plan Problems: (1) Fall Assessment & Plan: Brain: No hemorrhage, herniation, or mass effect. Chronic microvascular ischemic changes. Ventricles: No hydrocephalus. Age related cerebral volume loss. Bones/joints: Unremarkable. Soft tissues: Unremarkable. Sinuses: Unremarkable. Mastoid air cells: Severe bilateral mastoid effusions. IMPRESSION: No acute hemorrhage, hydrocephalus, or mass effect. Severe bilateral mastoid effusions. fall precautions (2) Malnutrition Assessment & Plan: DAILY ESTIMATED NEEDS: Needs based on Underweight wounds 52.3kg 30-35 kcals/kg 2061-7077 total kcals 1.25-1.5 g protein/kg 65-78 g total protein 25-30 mL/kg 5720-1741 total fluid mLs NUTRITION DIAGNOSIS: Increased kcal and pro needs r/t wound healing and underweight status as evidenced by pt w/ wound photos, h/o pressure wounds, BMI underweight per guidelines, @67% of [place] Body Weight w/ generalized moderate to severe wasting. CURRENT DIET: Soft ms ground CCHO HIGH/ Cardiac PO DIET RECOMMENDATIONS: Liberalized Regular diet/ texture per FLOORS BUFFER ADDITIONAL RECOMMENDATIONS: 1) Rec to obtain a Calibrated bed scale wt 2) Wound care: F/up w/ WC eval, add RENETTA BID . 3) Ensure enlive BID (350kcal/20g prot per bottle) (350kcal/20g prot per bottle) 4) FLOORS BUFFER eval for appropriate texture 5) Hold psych meds at meal time to ensure po intake (3) Contusion of right elbow Assessment & Plan: Bones/joints: Otherwise no acute osseous abnormality. No dislocation. Soft tissues: Soft tissue swelling over the olecranon with tiny possible osseous james seen on the lateral radiograph; this could represent a tiny avulsion fracture. Olecranon soft tissue swelling can also be seen with olecranon bursitis, which could be posttraumatic. Correlate with presentation. IMPRESSION: 1. Soft tissue swelling over the olecranon with tiny possible osseous james seen on the lateral radiograph; this could represent a tiny avulsion fracture. 2. Otherwise no acute osseous abnormality. 3. Olecranon soft tissue swelling can also be seen with olecranon bursitis, which could be posttraumatic. Correlate with presentation. no tenderness on exam small closed superficial lac edema stable no infection stable (4) Decubitus skin ulcer Assessment & Plan: Pt presented on admission with an Unstageable pressure injury R shoulder . Base of wound has 100% slough (L)0.4cm x (W)0.5cm with surrounding indurated and erythematous borders.(L)3cm x (W)3cm. Resolving pressure injury L hip. Non-blanching erythema noted with pink epithelial margins.No evidence of Skin breakdown to sacrum/buttocks. Pt noted to have maculo/papular rash to upper back ,R flank and bilat lower ext. Few scaled rashes noted on both lower ext. Pt confirmed lower ext are itchy but denied itching back. Stable dry eschar noted to lateral L 1st metatarsal dorsal aspects of L 1st,2nd 3rd and 5th metatarsals,R 1st 4th and 5th metatarsals. Both heels are soft but blanchable. No evidence of other skin breakdown noted. right elbow small 1cm closed lac with some mild edema Tx.Plan: Cleanse wound R shoulder with Saline. Apply Therahoney.Apply Cavilon Skin Barrier periwound. Cover with Optifoam drsg. Change every 3 days and prn. Apply Moisture Barrier Paste to L hip. Cover with Optifoam drsg. Change every 3 days and prn. Apply Moisture Barrier Paste to Sacrum and R hip. Change every 3 days and prn. Apply Cavilon Skin Barrier to both heels. Cover each heel with Optifoam drsg. Change every 7 days and prn. Apply foam dressing to right elbow; change q3 days Reposition at least every 2hours or as tolerated. Additional Comments late entry dc monitor for falls care instructions as above Billy Horn May 24, 2019 16:19
--- NOTE | 2019-05-25 02:45 | Progress Note ---
DATE: 05/24/2019 SUBJECTIVE: The patient is in bed. No acute distress noted. The patient is having episodes of agitation. Poor insight. Needs frequent redirection MENTAL STATUS EXAMINATION: The patient is alert, oriented times self. Mood is neutral. Affect is flat. Thought process is concrete. Thought content, no suicidal or homicidal ideation. Cognition is impaired. Insight and judgment is impaired. ASSESSMENT: 1. Schizophrenia. 2. Cognitive impairment. PLAN: 1. Continue current psychotropic medications. 2. Provide the patient with reality orientation and supportive therapy. Jermaine Donaldson M.D. DR: ELVER JOB#: [id number] CC: VIANNEY
--- NOTE | 2019-05-26 08:55 | Discharge Summary ---
Discharge Summary Discharge Summary _ DATE OF ADMISSION: 05/20/2022 DATE OF DISCHARGE: 05/24/2019 DISCHARGED BY: Dr. Garcia REASON FOR ADMISSION: 73 years old male with past medical history of hypertension, COPD, diabetes mellitus, history of CVA/TIA, vascular dementia, was brought from the [facility] facility after recent fall. Patient reported right elbow pain and headache. Upon evaluation vital signs were stable. CT of the head revealed no acute intracranial pathology. Chest x-ray demonstrated no acute cardiopulmonary pathology. X-ray of the right elbow revealed tissue swelling over the olecranon with tiny possible osseous plaque seen on the lateral radiograph , possibly may represent a tiny avulsion fracture. Laboratory work-up revealed no leukocytosis, hemoglobin 8.8, hematocrit 27.8, platelet count 344. Stable electrolytes. BUN 19, creatinine 1.0. Glucose 124. Stable LFT. Albumin 2.0 . BMI 16. Urinalysis revealed no evidence of urinary tract infection. Urine toxicology screen was negative. Serum alcohol ,salicylate and Tylenol levels were all negative. Physical examination revealed superficial laceration to right elbow. Patient subsequently admitted for further evaluation and management CONSULTANTS: surgery Dr. Horn psychiatrist [facility] COURSE: Patient admitted to medical surgical floor. Pain management was addressed as needed. Supportive care provided. DVT and GI prophylaxis provided. Blood pressure and blood sugar were closely monitored. Pulse oximetry was stable on room air. Surgeon seen and evaluated patient. No tenderness on examination . Small closed superficial lacerations was noted with no evidence of infection. No need for any surgical intervention. Protein supplements provided as per registered sales assistant recommendation. Wound care for un-stageable decubitus ulcer right shoulder provided as per surgeon recommendation. Continue wound care at the facility. Psychiatrist followed. Psychiatric medication regimen was optimized as per psychiatrist. Reality orientation and supportive therapy provided. Patient clinically stabilized and was ready for transfer back to [facility] facility for continuation of care. FINAL DIAGNOSES: Status post fall Right elbow contusion Decubitus ulcer , un-stageable right shoulder, present on admission Protein calorie malnutrition Chronic anemia Diabetes mellitus Hypertension COPD CHF Encephalopathy History of TIA Dementia Schizophrenia Cognitive impairment DISCHARGE MEDICATIONS: See Medication Reconciliation list. DISCHARGE INSTRUCTIONS: Patient was discharged to the [facility] facility. Follow up with medical doctor at the facility. I have been assigned to dictate discharge summary for this account. I was not involved in the patient's management. Kitty Stone NP May 26, 2019 08:55
== END 2019-05-24 12:00 | DRG 604 ==
LOC: EDUNIT# 21:53 → EDBD 21:53 → EMR 22:16 → OBSVTOIN 05-21 00:24 → INTOOBSV 05-21 00:24 → 3E 05-21 00:24 → EDBEDREQ 05-21 01:23 → 4E 05-21 03:33
DX: S50.01XA Contusion of right elbow, initial encounter (principal); E43 Unspecified severe protein-calorie malnutrition; Z68.1 Body mass index [BMI] 19.9 or less, adult; G93.40 Encephalopathy, unspecified; F03.90 Unspecified dementia, unspecified severity, without behavioral disturbance, psychotic disturbance, mood disturbance, and anxiety; L89.110 Pressure ulcer of right upper back, unstageable; Z88.1 Allergy status to other antibiotic agents; J44.9 Chronic obstructive pulmonary disease, unspecified; E11.9 Type 2 diabetes mellitus without complications; I11.0 Hypertensive heart disease with heart failure; W19.XXXA Unspecified fall, initial encounter; Y92.129 Unspecified place in nursing home as the place of occurrence of the external cause; D64.9 Anemia, unspecified; Z86.73 Personal history of transient ischemic attack (TIA), and cerebral infarction without residual deficits; L89.890 Pressure ulcer of other site, unstageable; F20.9 Schizophrenia, unspecified; G31.84 Mild cognitive impairment of uncertain or unknown etiology
CPT/HCPCS: 36415; 70450; 71045; 80053; 80307; 81001; 82962; 85025; 85610; 85651; 85730; 86140; 87081; 96365; 96372; 96374; 99285; G0480; J1815